=== PATIENT | male | born 1940 | race Caucasian/White ===

== ENCOUNTER 2020-01-10 12:43 | Outpatient (CLI) | payer MEDICARE, SELFPAY ==
[2020-01-10 13:44] LABS: Blood Urea Nitrogen 22 mg/dL (9-20); Calcium 8.6 mg/dL (8.4-10.2); Carbon Dioxide 30 mmol/L (22-30); Chloride 105 mmol/L (98-107); Estimated Glomerular Filt Rate 39; Glucose 87 mg/dL (75-110); Phosphorus 3.9 mg/dL (2.5-4.5); Potassium 4.3 mmol/L (3.4-5.0); Sodium 139 mmol/L (137-145)
[2020-01-10 14:11] LABS: Creatinine Urine 76.8 mg/dL; Total Protein Urine Random 9 mg/dL
== END 2020-01-10 12:44 | disposition home or self-care (01) ==
LOC: ANHLAB 12:51
PROVIDERS: Visit Provider Internal Medicine Nephrology
DX: N18.3 Chronic kidney disease, stage 3 (moderate) (principal)
CPT/HCPCS: 36415; 80069; 82570; 84156

== ENCOUNTER 2020-07-11 13:25 | Outpatient (CLI) | payer MEDICARE, SELFPAY ==
[2020-07-11 13:50] LABS: Hematocrit 35.3 % (42.0-52.0); Hemoglobin 11.7 g/dL (14.0-18.0); Mean Corpuscular HGB Conc 33.1 g/dl (32-36); Mean Corpuscular Volume 99.4 fl (80-100); Platelet Count Result 145 k/mm3 (150-375); Red Blood Count 3.55 M/mm3 (4.6-6.20); White Blood Count 5.8 K/mm3 (4.5-10.0)
[2020-07-11 14:08] LABS: Albumin Level 3.7 g/dL (3.5-5.1); Anion Gap 2 mmol/L (8-16); Blood Urea Nitrogen 18 mg/dL (9-20); Calcium 8.8 mg/dL (8.4-10.2); Carbon Dioxide 35 mmol/L (22-30); Chloride 105 mmol/L (98-107); Creatinine Urine 77.4 mg/dL; Estimated Glomerular Filt Rate 45; Glucose 98 mg/dL (75-110); Phosphorus 3.4 mg/dL (2.5-4.5); Potassium 4.2 mmol/L (3.4-5.0); Sodium 142 mmol/L (137-145); Total Protein Urine Random 9 mg/dL
[2020-07-11 14:19] LABS: Parathyroid Intact 90.1 pg/mL (7.5-53.5)
[2020-07-11 15:41] LABS: Vitamin D 25 Hydroxy 97.4 ng/mL
== END 2020-07-11 13:26 | disposition home or self-care (01) ==
PROVIDERS: Visit Provider Internal Medicine Nephrology
DX: N18.30 Chronic kidney disease, stage 3 unspecified (principal)
CPT/HCPCS: 36415; 80069; 82306; 82570; 83970; 84156; 85027

== ENCOUNTER → 2020-11-03 00:38 | Outpatient (CLI) | payer MEDICARE, SELFPAY ==
[2020-11-03 20:23] LABS: SARS-CoV-2 RNA PCR Negative
== END ==
PROVIDERS: Visit Provider Internal Medicine Gastroenterology
DX: Z01.812 Encounter for preprocedural laboratory examination (principal); Z20.822 Contact with and (suspected) exposure to COVID-19
CPT/HCPCS: C9803; U0003; U0005

== ENCOUNTER 2020-11-06 01:26 | Day surgery (SDC) | payer MEDICARE, SELFPAY ==
[2020-09-25 13:23] VITALS: BMI 25.2
--- NOTE | 2020-10-27 10:02 | PC.NURSE ---
Spoke with Tanika the daughter- states no changes in health history since last interview. Updated on when to stop warfarin, Covid swabbing date and hospital arrival times. No questions at this time.
[2020-11-06] MEDS: LACTATED RINGERS 1,000 ML 150 ML IV CONT (07:39)
[2020-11-06 07:50] LABS: INR 1.6; Prothrombin Time 19.4 Seconds (11.1-14.7)
[2020-11-06 07:51] LABS: Partial Thromboplastin Time 39.3 SECONDS (22.3-36.8)
[2020-11-06 07:56] VITALS: BP 139/65; PULSE 122; RESP 20; TEMP 36.7; O2SAT 99; BMI 25.7
--- NOTE | 2020-11-06 07:56 | WPDANESEPPF ---
Anes - Initial Pre Proc Eval Procedure: Operation Date: 11/06/20 08:30 Proposed Procedures p Screening Colonoscopy - Juan Manuel Pratt DO Date/Time: 11/06/20 07:56 Surgeon: Juan Manuel Pratt DO Pre Op Diagnosis: Neoplasm Screening Patient Data Age: 80 Gender: M Height: 5 ft 7 in Weight: 73 kg Allergies Allergy/AdvReac Type Severity Reaction Status Date / Time Penicillins Allergy Severe Hives Verified 11/06/20 07:16 Home Medications Medication Instructions Recorded Confirmed Type aspirin 81 mg tablet,delayed 81 mg PO DAILY 08/06/19 09/25/20 History release lisinopril 20 mg tablet 20 mg PO DAILY 08/06/19 09/25/20 History pantoprazole 40 mg tablet,delayed 40 mg PO BID #90 tablet 06/11/20 09/25/20 Rx release atorvastatin 80 mg PO QPM 09/25/20 09/25/20 History carvedilol 6.25 mg PO DAILY 09/25/20 09/25/20 History cholecalciferol (vitamin D3) 125 mcg PO DAILY 09/25/20 09/25/20 History [Vitamin D3] warfarin 2.5 mg PO QPM 09/25/20 09/25/20 History finasteride 5 mg tablet See Rx Instructions .ROUTE 10/17/20 10/27/20 Rx .COMPLEX #90 tablet Laboratory Tests 11/06/20 07:34 PT 19.4 Seconds H Seconds (11.1-14.7) INR 1.6 APTT 39.3 SECONDS H SECONDS (22.3-36.8) Patient hx anesthesia problems: none Family hx anesthesia problems: none PMFSH Past Medical History Medical History CHF (congestive heart failure) COPD (chronic obstructive pulmonary disease) CVA (cerebral vascular accident) Hyperlipidemia Hypertension Surgical History Surgical History History of vasectomy Family History Family History Father , Cause of unknown. No problems noted. Mother , Cancer. Unknown type. No problems noted. Social History Social History Smoking packs per day: 1 Smoking cigarettes per day: 20.0 Years smoked: 57 Smoking pack-years: 57.00 Smoking status: Former smoker Tobacco type: cigarettes Alcohol intake: current Substance use: never Substance use type: does not use Additional living arrangements comments: . 2 Children. Additional occupation/education comments: [employer] 4 years. [employer] 23 years. Spiritual care concerns: No Anes - Eval Final PreProcedure Day of Procedure 11/06/20 07:56 Patient weight: normal Heart: irregular rhythm Lungs: clear to auscultation Airway: Mallampati scale class III Neurological: alert and oriented Last oral intake: >/= 8 hours ASA classification: IV Emergent: no Anesthetic plan: proceed Anesthesia type and monitoring: general GIVS and standard monitoring Informed Consent: The patient's anesthetic plan and its attendant risks and benefits were discussed with the patient/family/POA. Questions were solicited and answers provided to the satisfaction of the patient/family/POA.
--- NOTE | 2020-11-06 08:28 | WPDGICN ---
GI Consult Note Consult date/time: 11/06/20 08:28 HPI: reason for visit is colonoscopy. This very pleasant gentleman seen in consultation at the request of the primary physician. Impression: Screening surveillance colonoscopy. The patient has a history adenomatous colon polyps. CKD. Cardiomyopathy/ CHF. Status post pacemaker/defibrillator placement. CVA. COPD. HLD. HTN. BPH. Recommendation: Colonoscopy. History: This very pleasant gentleman is being evaluated for screening and surveillance colonoscopy. He has history of adenomatous colon polyps. He does complain of occasional constipation. He is here for colonoscopy. Physical examination: General: very pleasant patient in no acute distress. HEENT: Head was normocephalic sclerae is clear mouth without masses neck was supple. Heart: Rate rhythm regular without S3 or S4. Lungs: Decreased breath sounds bilaterally. Abdomen: Soft with no guarding or rigidity. Bowel sounds were active. Neurologic: Cranial nerves 2 through 12 intact. No focal defects. No clonus. Musculoskeletal system: Revealed no joint tenderness or swelling no muscle atrophy. Extremities: Reveal no significant edema. Skin: Warm and dry with normal turgor. Mental status: intact. Patient is alert and oriented. Review of Systems Review of Systems: All systems reviewed & are unremarkable except as noted in HPI and below PMFSH Past Medical History Medical History (Updated 11/06/20 @ 08:27 by Juan Manuel Pratt DO) Adenomatous colon polyp CHF (congestive heart failure) COPD (chronic obstructive pulmonary disease) CVA (cerebral vascular accident) Hyperlipidemia Hypertension Surgical History Surgical History History of vasectomy Family History Family History Father , Cause of unknown. No problems noted. Mother , Cancer. Unknown type. No problems noted. Social History Social History Smoking packs per day: 1 Smoking cigarettes per day: 20.0 Years smoked: 57 Smoking pack-years: 57.00 Smoking status: Former smoker Tobacco type: cigarettes Alcohol intake: current Substance use: never Substance use type: does not use Additional living arrangements comments: . 2 Children. Additional occupation/education comments: [employer] 4 years. [employer] 23 years. Spiritual care concerns: No Meds Home Medications and Allergies Home Medications Medication Instructions Recorded Confirmed Type aspirin 81 mg tablet,delayed 81 mg PO DAILY 08/06/19 09/25/20 History release lisinopril 20 mg tablet 20 mg PO DAILY 08/06/19 09/25/20 History pantoprazole 40 mg tablet,delayed 40 mg PO BID #90 tablet 06/11/20 09/25/20 Rx release atorvastatin 80 mg PO QPM 09/25/20 09/25/20 History carvedilol 6.25 mg PO DAILY 09/25/20 09/25/20 History cholecalciferol (vitamin D3) 125 mcg PO DAILY 09/25/20 09/25/20 History [Vitamin D3] warfarin 2.5 mg PO QPM 09/25/20 09/25/20 History finasteride 5 mg tablet See Rx Instructions .ROUTE 10/17/20 10/27/20 Rx .COMPLEX #90 tablet Allergies Allergy/AdvReac Type Severity Reaction Status Date / Time Penicillins Allergy Severe Hives Verified 11/06/20 07:16 Vital Signs Vital Signs - 24 hr 11/06/20 07:56 Temperature 36.7 C Pulse Rate 122 H Respiratory Rate 20 Blood Pressure 139/65 Pulse Oximetry 99
[2020-11-06 09:06] VITALS: BP 80/48; PULSE 63; RESP 14; O2SAT 96
[2020-11-06 09:11] VITALS: BP 85/50; PULSE 71; RESP 14; O2SAT 96
[2020-11-06 09:16] VITALS: BP 101/62; PULSE 66; RESP 14; O2SAT 96
[2020-11-06 09:26] VITALS: BP 110/69; PULSE 60; RESP 14; O2SAT 100
== END 2020-11-06 09:45 | disposition home or self-care (01) ==
PROVIDERS: Visit Provider Internal Medicine Gastroenterology
PROC: 0DJD8ZZ Inspection of Lower Intestinal Tract, Via Natural or Artificial Opening Endoscopic (ICD-10-PCS; CPT 45378; principal; 2020-11-06 08:30)
DX: Z12.11 Encounter for screening for malignant neoplasm of colon (principal); K63.5 Polyp of colon; K64.8 Other hemorrhoids; I13.0 Hypertensive heart and chronic kidney disease with heart failure and stage 1 through stage 4 chronic kidney disease, or unspecified chronic kidney disease; I50.9 Heart failure, unspecified; N18.9 Chronic kidney disease, unspecified; E78.5 Hyperlipidemia, unspecified; I42.9 Cardiomyopathy, unspecified; J44.9 Chronic obstructive pulmonary disease, unspecified; N40.0 Benign prostatic hyperplasia without lower urinary tract symptoms; Z95.810 Presence of automatic (implantable) cardiac defibrillator; Z87.891 Personal history of nicotine dependence; Z86.73 Personal history of transient ischemic attack (TIA), and cerebral infarction without residual deficits
CPT/HCPCS: 45380; 36415; 85610; 85730; 88305; C9803; J2704; J7120; U0003; U0005

== ENCOUNTER 2021-01-14 14:07 | Outpatient (CLI) | payer MEDICARE, SELFPAY ==
[2021-01-14 14:42] LABS: Hematocrit 35.8 % (42.0-52.0); Hemoglobin 11.5 g/dL (14.0-18.0); Mean Corpuscular HGB Conc 32.1 g/dl (32-36); Mean Corpuscular Hemoglobin 32.9 pg (26-34); Mean Corpuscular Volume 102.3 fl (80-100); Mean Platelet Volume 9.5 fl (7.4-10.4); Platelet Count Result 150 k/mm3 (150-375); Red Cell Distribution Width 13.1 % (11.5-14.5); White Blood Count 5.3 K/mm3 (4.5-10.0)
[2021-01-14 14:53] LABS: Albumin Level 3.9 g/dL (3.5-5.1); Anion Gap 7 mmol/L (8-16); Blood Urea Nitrogen 23 mg/dL (9-20); Calcium 9.1 mg/dL (8.4-10.2); Carbon Dioxide 30 mmol/L (22-30); Chloride 108 mmol/L (98-107); Estimated Glomerular Filt Rate 39; Glucose 125 mg/dL (75-110); Phosphorus 3.3 mg/dL (2.5-4.5); Potassium 4.1 mmol/L (3.4-5.0); Sodium 145 mmol/L (137-145)
[2021-01-14 14:55] LABS: Creatinine Urine 127.1 mg/dL; Total Protein Urine Random 9 mg/dL; Ur Ttl Prot Creatinine Ratio 0.07 mg/mg (0-0.20)
[2021-01-14 15:05] LABS: Parathyroid Intact 89.3 pg/mL (7.5-53.5)
[2021-01-14 16:23] LABS: Vitamin D 25 Hydroxy 95.6 ng/mL
== END 2021-01-14 14:08 | disposition home or self-care (01) ==
PROVIDERS: PCP Family Medicine; Visit Provider Internal Medicine Nephrology
DX: N18.32 Chronic kidney disease, stage 3b (principal); E55.9 Vitamin D deficiency, unspecified
CPT/HCPCS: 36415; 80069; 82306; 82570; 83970; 84156; 85027

== ENCOUNTER 2021-03-03 12:52 | Outpatient (CLI) | payer MEDICARE, SELFPAY ==
[2021-03-03 13:58] LABS: Albumin Level 3.9 g/dL (3.5-5.1); Anion Gap 7 mmol/L (8-16); Blood Urea Nitrogen 24 mg/dL (9-20); Calcium 8.5 mg/dL (8.4-10.2); Carbon Dioxide 31 mmol/L (22-30); Chloride 103 mmol/L (98-107); Estimated Glomerular Filt Rate 31; Glucose 120 mg/dL (65-110); Potassium 3.8 mmol/L (3.4-5.0); Sodium 141 mmol/L (137-145)
== END 2021-03-03 12:53 | disposition home or self-care (01) ==
LOC: ANHLAB 12:55
PROVIDERS: PCP Family Medicine; Visit Provider Family Medicine
DX: N18.32 Chronic kidney disease, stage 3b (principal)
CPT/HCPCS: 36415; 80069

== ENCOUNTER 2021-04-14 10:19 | Inpatient (IN) | payer MEDICARE, SELFPAY ==
[2021-04-14] VITALS (10 sets, daily range): BP systolic 100–145; BP diastolic 58–75; PULSE 60–74; RESP 18–20; TEMP 36.1–36.9; O2SAT 90–98; BMI 23.6
--- NOTE | ~2021-04-14 | XR_ITS ---
EXAMINATION: XR chest 1V portable INDICATION: Cough and shortness of breath, COVID 19 TECHNIQUE: Portable AP chest at 1130 hours COMPARISON: 03/30/2019 FINDINGS: There are airspace opacities of the lung bases. No pleural effusion or pneumothorax is iden tified. The heart size is upper limits of normal for technique. There has been interval insertion of a dual lead pacemaker in the left chest wall which ends with its leads in expected positions. IMPRESSION: 1. Bibasilar airspace opacities, likely COVID 19 pneumonia given clinical history. Reviewed, dictated and finalized at location A. IMPRESSION: 1. Bibasilar airspace opacities, likely COVID 19 pneumonia given clinical histo ry.
--- NOTE | 2021-04-14 11:00 | ED.SOB ---
HPI - SOB/Dyspnea General Chief Complaint: Upper Respiratory Infection Stated Complaint: COUGH SOB Source: patient and RN notes reviewed Mode of arrival: ambulatory Limitations: no limitations History of Present Illness MD elicited complaint: shortness of breath and cough Pertinent past history: COPD and congestive heart failure Onset (ago): week(s) (1) Context: recent illness and other (Positive for COVID on 04/07) Timing: constant Severity: moderate Exacerbating factors: exertion and coughing Relieving factors: nothing Known history of: COPD and congestive heart failure Associated symptoms: cough Treatment prior to arrival: none Related Data Home Medications Medication Instructions Recorded Confirmed aspirin 81 mg tablet,delayed 81 mg PO DAILY 08/06/19 04/14/21 release lisinopril 20 mg tablet 20 mg PO DAILY 08/06/19 04/14/21 atorvastatin 80 mg PO QPM 09/25/20 04/14/21 carvedilol 12.5 mg PO DAILY 09/25/20 04/14/21 cholecalciferol (vitamin D3) 125 mcg PO DAILY 09/25/20 04/14/21 [Vitamin D3] warfarin See Rx Instructions .ROUTE .COMPLEX 09/25/20 04/14/21 Allergies Allergy/AdvReac Type Severity Reaction Status Date / Time Penicillins Allergy Severe Hives Verified 11/06/20 07:16 [facility] Past Medical History Medical History (Updated 04/14/21 @ 15:45 by BRETT Hester) Adenomatous colon polyp Azotemia (09/06/16) CHF (congestive heart failure) Chronic kidney disease COPD (chronic obstructive pulmonary disease) CVA (cerebral vascular accident) GI bleed (08/04/15) Hyperlipidemia Hypertension Lump of skin (11/29/16) Unspecified viral infection characterized by skin and mucous membrane lesions (03/01/17) Unspecified visual disturbance (10/07/14) Surgical History Surgical History History of vasectomy Family History Family History Father , Cause of unknown. No problems noted. Mother , Cancer. Unknown type. No problems noted. Other Unknown family medical history Social History Social History Smoking packs per day: 1 Smoking cigarettes per day: 20.0 Years smoked: 57 Smoking pack-years: 57.00 Smoking status: Never smoker Tobacco type: cigarettes Second hand tobacco smoke exposure: No Alcohol intake: current Substance use: never Substance use type: does not use Additional living arrangements comments: . 2 Children. Additional occupation/education comments: [employer] 4 years. [employer] 23 years. Spiritual care concerns: No Exam Const: General: alert, anxious and ill appearing acutely Nutritional Appearance: well nourished and thin Orientation/consciousness: patient oriented x3 HENMT: Head: normal to inspection Eyes: Conjunctivae: conjunctivae normal Pupils: Equal, round and reactive pupils present Neck: Neck: normal visual inspection Chest: Chest palpation & inspection: normal inspection of the chest Resp: Effort & Inspection: normal respiratory effort Auscultation: rhonchi left lower and right lower Cardio: Rate: regular rate Rhythm: regular rhythm GI: GI Palp: Yes Soft to palpation and No Tenderness to palpation present (GI) Auscultation: normal bowel sounds Back/Spine/Pelvis: Cervical Spine: cervical ROM normal Thoracic/Lumbar Spine: thoraco-lumbar ROM normal Skin: General skin exam: normal color Rashes: no rashes Neuro: General: patient oriented x3, moves all extremities and no focal motor deficits Speech: normal speech Gait exam (Neuro): Normal gait present Extrem: General: normal to inspection and no pedal edema Psych: Mental Status: mental status grossly normal Affect: normal affect Attitude: cooperative Thought content: Yes Normal thought content present Course Vital Signs Vital signs: Vital Signs Te
[2021-04-14 11:21] LABS: Basophils Absolute Auto 0.02 K/mm3 (0.00-0.10); Basophils Percent Auto 0.3 % (0.0-1.0); Eosinophils Absolute Auto 0.09 K/mm3 (0.02-0.50); Eosinophils Percent Auto 1.3 % (1.0-6.0); Hematocrit 33.9 % (37.0-46.0); Hemoglobin 11.4 g/dL (12.4-15.3); Immature Granulocyte Absolute 0.05 K/mm3 (0.00-0.00); Immature Granulocyte Percent A 0.7 % (0.0-0.0); Lymphocytes Absolute Auto 1.17 K/mm3 (1.10-4.50); Lymphocytes Percent Auto 16.8 % (18.0-42.0); Mean Corpuscular HGB Conc 33.6 g/dL (32.0-36.0); Mean Corpuscular Hemoglobin 31.6 pg (27.0-31.0); Mean Corpuscular Volume 93.9 fL (78.0-102.0); Mean Platelet Volume 9.2 fl (8.7-11.0); Monocytes Absolute Auto 0.74 K/mm3 (0.10-0.90); Monocytes Percent Auto 10.6 % (2.0-11.0); Neutrophils Absolute Auto 4.9 K/mm3 (1.7-7.2); Neutrophils Percent Auto 70.3 % (50.0-70.0); Platelet Count Result 240 K/mm3 (150-420); Red Blood Count 3.61 M/mm3 (4.70-6.10); Red Cell Distribution Width 12.3 % (11.6-14.4)
[2021-04-14 11:36] LABS: D Dimer 0.26 mg/L (0.19-0.50)
[2021-04-14 11:44] LABS: Lactic Acid Reflex 0.9 mmol/L (0.4-2.0)
[2021-04-14 11:50] LABS: Alanine Aminotransferase 27 U/L (16-63); Albumin Level 2.9 g/dL (3.4-5.0); Alkaline Phosphatase 51 U/L (46-116); Anion Gap 10 mmol/L (8-16); Aspartate Amino Transferase 22 U/L (15-37); Bilirubin,Total 1.1 mg/dL (0.00-1.00); Blood Urea Nitrogen 16 mg/dL (7-18); Calcium 8.3 mg/dL (8.5-10.1); Carbon Dioxide 27 mmol/L (21-32); Chloride 98 mmol/L (98-108); Estimated Glomerular Filt Rate 49; Glucose 104 mg/dL (70-99); Magnesium 1.4 mg/dL (1.8-2.4); NT Pro B Type Natriuretic Pept 7918 pg/mL (0-450); Osmolality Calculated 281 mOsm/kg (285-295); Potassium 3.3 mmol/L (3.5-5.1); Sodium 135 mmol/L (136-145); Total Protein 7.3 g/dL (6.4-8.2); Troponin I 51.2 ng/L (0.00-60.4)
[2021-04-14 11:51] LABS: CRP 12.5 mg/dL (0.0-0.9)
[2021-04-14 12:17] LABS: Ferritin 984 ng/mL (26-388)
--- NOTE | 2021-04-14 12:58 | PHAR ---
04/14/21: Noe [facility] confirmed pt.'s protnix dose 40mg bid, finasteride 5mg daily, and warfarin 2.5mg tablet /Tue&Wed and one whole tab other days of week. Spoke w/CONTRACTING SUPPORT SPECIALIST and he said was reported to him by ER doc INR 1.6. He wants to continue on just a whole tab 2.5mg daily at this time, sotero re-assess INR in AM. tls
--- NOTE | 2021-04-14 14:26 | ADMGEN ---
This patient, Mal Scott, was admitted to 2nd Floor Room 210-1. Patient/family oriented to hospital policies and general routines including ID bracelet, bed and alarms, visiting hours, pain management, procedures, bathroom and other care routines, personal items, smoking policy, room service/diet, and visiting hours. This patient assisted abed, rails up, call light in reach O2@2lpnc in place O2 Sat 97%.No pain at this time. Information on how to activate the Rapid Response Team has been discussed. Patient/Family are encouraged to report perceived risks to care and to ask questions if they do not understand what they are told or what they should do.
--- NOTE | 2021-04-14 15:23 | PM.IMHP ---
H&P: HPI History of Present Illness Date/Time: 04/14/21 15:23 Mal Scott is a 80-year-old male admitted to the hospital for shortness of breath related to COVID exposure. Patient states symptoms started on April 03 and was found to be positive on the . He came to the ER for having shortness breath with activity. Loss of appetite and states he has not eaten for the past 5 days. He is able to tolerate water provided drinks with a straw. Patient states he has not had a bowel movement in a few days. He states his urine is an marco color. Patient denies fever and chills chest pain abdominal pain body or muscle aches and no joint pain. He admits not only to the shortness of breath but also having been lightheaded and dizzy at times and decreased energy. Patient has a PMHx to include hypertension hyperlipidemia CVA COPD CHF. <BRETT Hester - Last Filed: 04/14/21 15:56> Chief Complaint: SOB <BRETT Hester - Last Filed: 04/14/21 15:56> Review of Systems Review of Systems: All systems reviewed & are unremarkable except as noted in HPI and below <BRETT Hester - Last Filed: 04/14/21 15:56> [facility] Past Medical History Medical History: Medical History (Updated 04/14/21 @ 15:45 by BRETT Hester) Adenomatous colon polyp Azotemia (09/06/16) CHF (congestive heart failure) Chronic kidney disease COPD (chronic obstructive pulmonary disease) CVA (cerebral vascular accident) GI bleed (08/04/15) Hyperlipidemia Hypertension Lump of skin (11/29/16) Unspecified viral infection characterized by skin and mucous membrane lesions (03/01/17) Unspecified visual disturbance (10/07/14) <BRETT Hester - Last Filed: 04/14/21 15:56> Surgical History Surgical History: Surgical History History of vasectomy <BRETT Hester - Last Filed: 04/14/21 15:56> Family History Family History: Family History Father , Cause of unknown. No problems noted. Mother , Cancer. Unknown type. No problems noted. Other Unknown family medical history <BRETT Hester - Last Filed: 04/14/21 15:56> Social History Social History: Social History Smoking packs per day: 1 Smoking cigarettes per day: 20.0 Years smoked: 57 Smoking pack-years: 57.00 Smoking status: Never smoker Tobacco type: cigarettes Second hand tobacco smoke exposure: No Alcohol intake: current Substance use: never Substance use type: does not use Additional living arrangements comments: . 2 Children. Additional occupation/education comments: [employer] 4 years. [employer] 23 years. Spiritual care concerns: No <BRETT Hester - Last Filed: 04/14/21 15:56> Meds Home Medications and Allergies Home medications: Home Medications Medication Instructions Recorded Confirmed Type aspirin 81 mg tablet,delayed 81 mg PO DAILY 08/06/19 04/14/21 History release lisinopril 20 mg tablet 20 mg PO DAILY 08/06/19 04/14/21 History atorvastatin 80 mg PO QPM 09/25/20 04/14/21 History carvedilol 12.5 mg PO DAILY 09/25/20 04/14/21 History cholecalciferol (vitamin D3) 125 mcg PO DAILY 09/25/20 04/14/21 History [Vitamin D3] warfarin See Rx Instructions .ROUTE .COMPLEX 09/25/20 04/14/21 History finasteride 5 mg tablet See Rx Instructions .ROUTE 10/17/20 04/14/21 Rx .COMPLEX #90 tablet pantoprazole 40 mg tablet,delayed See Rx Instructions .ROUTE 12/11/20 04/14/21 Rx release .COMPLEX #90 tablet <BRETT Hester - Last Filed: 04/14/21 15:56> Allergies/Adverse reactions: Allergies Allergy/AdvReac Type Severity Reaction Status Date / Time Penicillins Allergy Severe Hives Verified 11/06/20 07:16 <BRETT Hester
[2021-04-14] MEDS: REMDESIVIR 200 MG/NS 250 ML 200 MG/250 ML BAG 250 MG IVPB (15:54)
[2021-04-14] MEDS: WARFARIN (*PBKC) 2.5 MG TABLET PO (17:05)
[2021-04-14] MEDS: ATORVASTATIN 40 MG TABLET 80 MG PO (17:05)
[2021-04-14] MEDS: MAGNESIUM SULF 4 GM/WATER100ML 4 GM/100 ML BAG IVPB (17:09)
[2021-04-14] MEDS: POTASSIUM CHLORIDE 20 MEQ PACKET (FOR LIQUID) 40 MEQ PO (17:09)
[2021-04-14] MEDS: PANTOPRAZOLE 40 MG TABLET BY MOUTH (18:31)
[2021-04-15] VITALS (8 sets, daily range): BP systolic 106–146; BP diastolic 56–74; PULSE 60–64; RESP 18–20; TEMP 36–36.6; O2SAT 93–96
[2021-04-15 05:19] LABS: Hematocrit 32.6 % (37.0-46.0); Hemoglobin 11.1 g/dL (12.4-15.3); Mean Corpuscular Hemoglobin 31.7 pg (27.0-31.0); Mean Corpuscular Volume 93.1 fL (78.0-102.0); Mean Platelet Volume 9.3 fl (8.7-11.0); Platelet Count Result 243 K/mm3 (150-420); Red Cell Distribution Width 12.3 % (11.6-14.4); White Blood Count 5.3 K/mm3 (4.8-10.8)
[2021-04-15 05:34] LABS: Alanine Aminotransferase 27 U/L (16-63); Albumin Level 2.5 g/dL (3.4-5.0); Alkaline Phosphatase 49 U/L (46-116); Anion Gap 8 mmol/L (8-16); Aspartate Amino Transferase 24 U/L (15-37); Bilirubin,Total 0.7 mg/dL (0.00-1.00); Blood Urea Nitrogen 23 mg/dL (7-18); Calcium 7.8 mg/dL (8.5-10.1); Carbon Dioxide 27 mmol/L (21-32); Chloride 100 mmol/L (98-108); Estimated CRCL calculation 38 ml/min; Estimated Glomerular Filt Rate 50; Glucose 175 mg/dL (70-99); Magnesium 2.4 mg/dL (1.8-2.4); Osmolality Calculated 287 mOsm/kg (285-295); Potassium 3.9 mmol/L (3.5-5.1); Sodium 135 mmol/L (136-145); Total Protein 6.7 g/dL (6.4-8.2)
[2021-04-15] MEDS: PHYTONADIONE ADULT INJ 10 MG in DEXTROSE 5% IN WATER 50 ML 100 MG IVPB (07:55)
[2021-04-15] MEDS: CHOLECALCIFEROL 1,000 UNITS TABLET 5000 UNITS PO (07:56)
[2021-04-15] MEDS: carvediloL 12.5 MG TABLET PO (07:57)
[2021-04-15] MEDS: PANTOPRAZOLE 40 MG TABLET BY MOUTH ×2 (07:57→16:52)
[2021-04-15] MEDS: FINASTERIDE 5 MG TABLET BY MOUTH (07:58)
[2021-04-15] MEDS: lisinopriL 20 MG TABLET PO (07:58)
[2021-04-15] MEDS: DEXAMETHASONE 2 MG TABLET 6 MG PO (07:58)
[2021-04-15] MEDS: ASPIRIN 81 MG ENTERIC TABLET PO (07:58)
--- NOTE | 2021-04-15 09:03 | PC.NURSE ---
Mal up to bathroom O2sat down to 89-90%. Back abed O2 resaturation with coaching of pursed lips. O2 @1lpnc, O2Sat increased tob 94%. Huang. well Call light continues at reach of patient.No complaints of , No distress noted. Will continue to monitor.
[2021-04-15 09:57] LABS: Prothrombin Time 49.8 Seconds (9.50-12.10)
--- NOTE | 2021-04-15 10:00 | PM.IMPN ---
Progress Note: A&P Assessment and Plan (1) Pneumonia due to COVID-19 virus: Code(s): U07.1 - COVID-19; J12.82 - Pneumonia due to coronavirus disease 2019 <BRETT Hester - Last Filed: 04/15/21 13:12> Status: Acute <BRETT Hester - Last Filed: 04/15/21 13:12> Assessment and Plan: Started Remdesivir, Decadron, Supplemental Oxygen currently 2L/min NC, surveillance monitor with SpO2 monitoring, will monitor ALT, Creatinine, PT/INR, IVF, Zofran 04/15/2021 Continue with above regimen, oxygen has been weaned to 1 liter/minute, SpO2 95% or better, ALT 27, eGFR 50, PT/INR 90/8 was given vitamin K INR recheck and found to be 5, creatinine 1.37 <TORRES HesterC - Last Filed: 04/15/21 13:12> (2) Hypokalemia: Code(s): E87.6 - Hypokalemia <TORRES HesterC - Last Filed: 04/15/21 13:12> Status: Acute <BRETT Hester - Last Filed: 04/15/21 13:12> Assessment and Plan: Potassium 3.3 supplemented with 40 mEq PO, will monitor and supplement as needed, Pt states he has not been eating for the past 5 days. 04/15/2021 potassium 3.9, continue to monitor <Bernabe Maddox APN-C - Last Filed: 04/15/21 13:12> (3) Hypomagnesemia: Code(s): E83.42 - Hypomagnesemia <Bernabe Maddox APN-C - Last Filed: 04/15/21 13:12> Status: Acute <BRETT Hester - Last Filed: 04/15/21 13:12> Assessment and Plan: Magnesium 1.4 supplemented with 4gm IVPB, will monitor and supplement as needed, Pt states he has not been eating for the past 5 days. 04/15/2021 magnesium 2.4, continue to monitor <Bernabe Maddox APN-C - Last Filed: 04/15/21 13:12> (4) CHF (congestive heart failure): Qualifiers: Heart failure chronicity: acute on chronic Heart failure type: systolic Qualified Code(s): I50.23 - Acute on chronic systolic (congestive) heart failure <Bernabe LinkShaila Maddox APN-C - Last Filed: 04/15/21 13:12> Code(s): I50.9 - Heart failure, unspecified <Bernabe NikolayShaila Maddox APN-C - Last Filed: 04/15/21 13:12> Status: Acute <Bernabe LinkMACARIO SantanaN-C - Last Filed: 04/15/21 13:12> Assessment and Plan: BNP 7918, No IVFs, tolerating water provided he uses straw, no edema, lungs diminished without rales but with rhonchi in posterior bases, continue Coreg 04/15/2021 will obtain BNP tomorrow, lung sounds without rales but little diminished, <Bernabe NikolayShaila Maddox APN-C - Last Filed: 04/15/21 13:12> (5) Chronic kidney disease: Qualifiers: Chronic kidney disease stage: unspecified stage Qualified Code(s): N18.9 - Chronic kidney disease, unspecified <Bernabe NikolayShaila Maddox APN-C - Last Filed: 04/15/21 13:12> Code(s): N18.9 - Chronic kidney disease, unspecified <Bernabe NikolayShaila Maddox APN-C - Last Filed: 04/15/21 13:12> Status: Acute <Bernabe NikolayShaila Maddox APN-C - Last Filed: 04/15/21 13:12> Assessment and Plan: Cr 1.4 and appears to be at Pt's baseline, avoiding nephrotoxic medications as best possible, renal dose medications when needed, monitoring renal functions with Remdesivir 04/15/2021 creatinine stable now 1.37, continue with above <Bernabe NikolayShaila Maddox APN-C - Last Filed: 04/15/21 13:12> (6) COPD (chronic obstructive pulmonary disease): Qualifiers: COPD type: unspecified COPD Qualified Code(s): J44.9 - Chronic obstructive pulmonary disease, unspecified <Bernabe NikolayShaila Maddox APN-C - Last Filed: 04/15/21 13:12> Code(s): J44.9 - Chronic obstructive pulmonary disease, unspecified <BRETT Hester - Last Filed: 04/15/21 13:12> Status: Acute <BRETT Hester - Last Filed: 04/15/21 13:12> Assessment and Plan: Chronic and Stable, Albuteroll ordered PRN, Pt has supplemental O2 for his COVID, will monitor and make adjustments as needed. <BRETT Hester - Last Filed: 04/15/21 13:12> (7) Hypertension: Qualifiers:
[2021-04-15] MEDS: REMDESIVIR 100 MG/NS 250 ML 100 MG/250 ML BAG 250 MG IVPB (15:22)
[2021-04-15] MEDS: ATORVASTATIN 40 MG TABLET 80 MG PO (16:52)
[2021-04-16] VITALS (11 sets, daily range): BP systolic 113–155; BP diastolic 65–82; PULSE 61–80; RESP 20–22; TEMP 36–36.7; O2SAT 90–96
[2021-04-16 05:36] LABS: Hematocrit 32.8 % (37.0-46.0); Hemoglobin 11.2 g/dL (12.4-15.3); Mean Corpuscular HGB Conc 34.1 g/dL (32.0-36.0); Mean Corpuscular Hemoglobin 32.1 pg (27.0-31.0); Mean Platelet Volume 9.3 fl (8.7-11.0); Platelet Count Result 341 K/mm3 (150-420); Red Blood Count 3.49 M/mm3 (4.70-6.10); Red Cell Distribution Width 12.5 % (11.6-14.4); White Blood Count 14.7 K/mm3 (4.8-10.8)
[2021-04-16 05:48] LABS: INR 1.5; Prothrombin Time 15.6 Seconds (9.50-12.10)
[2021-04-16 06:00] LABS: Alanine Aminotransferase 28 U/L (16-63); Albumin Level 2.4 g/dL (3.4-5.0); Alkaline Phosphatase 48 U/L (46-116); Anion Gap 7 mmol/L (8-16); Aspartate Amino Transferase 18 U/L (15-37); Bilirubin,Total 0.6 mg/dL (0.00-1.00); Blood Urea Nitrogen 31 mg/dL (7-18); Calcium 8.2 mg/dL (8.5-10.1); Carbon Dioxide 26 mmol/L (21-32); Chloride 102 mmol/L (98-108); Estimated CRCL calculation 36 ml/min; Estimated Glomerular Filt Rate 47; Glucose 156 mg/dL (70-99); NT Pro B Type Natriuretic Pept 5598 pg/mL (0-450); Osmolality Calculated 289 mOsm/kg (285-295); Potassium 4.2 mmol/L (3.5-5.1); Sodium 135 mmol/L (136-145); Total Protein 6.5 g/dL (6.4-8.2)
[2021-04-16] MEDS: CHOLECALCIFEROL 1,000 UNITS TABLET 5000 UNITS PO (08:15)
[2021-04-16] MEDS: carvediloL 12.5 MG TABLET PO (08:16)
[2021-04-16] MEDS: DEXAMETHASONE 2 MG TABLET 6 MG PO (08:17)
[2021-04-16] MEDS: PANTOPRAZOLE 40 MG TABLET BY MOUTH ×2 (08:20→16:26)
[2021-04-16] MEDS: lisinopriL 20 MG TABLET PO (08:20)
[2021-04-16] MEDS: FINASTERIDE 5 MG TABLET BY MOUTH (08:20)
--- NOTE | 2021-04-16 12:15 | PM.IMPN ---
Progress Note: A&P Assessment and Plan (1) Pneumonia due to COVID-19 virus: Code(s): U07.1 - COVID-19; J12.82 - Pneumonia due to coronavirus disease 2019 Status: Acute Assessment and Plan: Started Remdesivir, Decadron, Supplemental Oxygen currently 2L/min NC, monitor and storage bin tender with SpO2 monitoring, will monitor ALT, Creatinine, PT/INR, IVF, Zofran 04/15/2021 Continue with above regimen, oxygen has been weaned to 1 liter/minute, SpO2 95% or better, ALT 27, eGFR 50, PT/INR 90/8 was given vitamin K INR recheck and found to be 5, creatinine 1.37 04/16/2021 WBC 14.7 likely d/t steroids, will continue to monitor, continue with above, Pt has SOB early this AM, NC remains at 1L/min with SpO2 at 91% (2) Hypokalemia: Code(s): E87.6 - Hypokalemia Status: Acute Assessment and Plan: Potassium 3.3 supplemented with 40 mEq PO, will monitor and supplement as needed, Pt states he has not been eating for the past 5 days. 04/15/2021 potassium 3.9, continue to monitor 04/16/2021 potassium 4.2 (3) Hypomagnesemia: Code(s): E83.42 - Hypomagnesemia Status: Acute Assessment and Plan: Magnesium 1.4 supplemented with 4gm IVPB, will monitor and supplement as needed, Pt states he has not been eating for the past 5 days. 04/15/2021 magnesium 2.4, continue to monitor 04/16/2021 will monitor as indicated (4) CHF (congestive heart failure): Qualifiers: Heart failure chronicity: acute on chronic Heart failure type: systolic Qualified Code(s): I50.23 - Acute on chronic systolic (congestive) heart failure Code(s): I50.9 - Heart failure, unspecified Status: Acute Assessment and Plan: BNP 7918, No IVFs, tolerating water provided he uses straw, no edema, lungs diminished without rales but with rhonchi in posterior bases, continue Coreg 04/15/2021 will obtain BNP tomorrow, lung sounds without rales but little diminished 04/16/2021 Improved BNP now 5598, Lung sounds diminished but clear (5) Chronic kidney disease: Qualifiers: Chronic kidney disease stage: unspecified stage Qualified Code(s): N18.9 - Chronic kidney disease, unspecified Code(s): N18.9 - Chronic kidney disease, unspecified Status: Acute Assessment and Plan: Cr 1.4 and appears to be at Pt's baseline, avoiding nephrotoxic medications as best possible, renal dose medications when needed, monitoring renal functions with Remdesivir 04/15/2021 creatinine stable now 1.37, continue with above 04/16/2021 Cr 1.45, eGFR 36 (6) COPD (chronic obstructive pulmonary disease): Qualifiers: COPD type: unspecified COPD Qualified Code(s): J44.9 - Chronic obstructive pulmonary disease, unspecified Code(s): J44.9 - Chronic obstructive pulmonary disease, unspecified Status: Acute Assessment and Plan: Chronic and Stable, Albuteroll ordered PRN, Pt has supplemental O2 for his COVID, will monitor and make adjustments as needed. (7) Hypertension: Qualifiers: Hypertension type: unspecified Qualified Code(s): I10 - Essential (primary) hypertension Code(s): I10 - Essential (primary) hypertension Status: Acute Assessment and Plan: Currently BP 143/64 with HR at 62, has pacemaker, BP stable, continue home medications, continue Coreg and Lisinopril 04/15/2021 BP stable 112-146/56-68 HR paced 04/16/2021 VSS no changes at this time (8) Hyperlipidemia: Qualifiers: Hyperlipidemia type: unspecified Qualified Code(s): E78.5 - Hyperlipidemia, unspecified Code(s): E78.5 - Hyperlipidemia, unspecified Status: Acute Assessment and Plan: Continue Atorvastatin Subjective Date/time seen: 04/16/21 12:15 Pt states he did have some SOB early this AM. At this time he is not c/o SOB. He does have a cough and states it is productive. He does not have any other complaints or concerns at this time. Continues to use 1L NC. Pt has updated his daughter and he has gi
[2021-04-16] MEDS: REMDESIVIR 100 MG/NS 250 ML 100 MG/250 ML BAG 250 MG IVPB (15:11)
[2021-04-16] MEDS: ATORVASTATIN 40 MG TABLET 80 MG PO (17:14)
[2021-04-17] VITALS (11 sets, daily range): BP systolic 132–143; BP diastolic 66–76; PULSE 60–81; RESP 18–20; TEMP 36.3–36.8; O2SAT 87–98
[2021-04-17 05:28] LABS: Hematocrit 33.7 % (37.0-46.0); Hemoglobin 11.3 g/dL (12.4-15.3); Mean Corpuscular HGB Conc 33.5 g/dL (32.0-36.0); Mean Corpuscular Hemoglobin 31.7 pg (27.0-31.0); Mean Corpuscular Volume 94.4 fL (78.0-102.0); Mean Platelet Volume 9.1 fl (8.7-11.0); Platelet Count Result 359 K/mm3 (150-420); Red Blood Count 3.57 M/mm3 (4.70-6.10); Red Cell Distribution Width 12.7 % (11.6-14.4); White Blood Count 11.7 K/mm3 (4.8-10.8)
[2021-04-17 05:42] LABS: Anion Gap 7 mmol/L (8-16); Blood Urea Nitrogen 33 mg/dL (7-18); Calcium 8.1 mg/dL (8.5-10.1); Carbon Dioxide 27 mmol/L (21-32); Chloride 103 mmol/L (98-108); Estimated CRCL calculation 37 ml/min; Estimated Glomerular Filt Rate 49; Glucose 120 mg/dL (70-99); Osmolality Calculated 292 mOsm/kg (285-295); Sodium 137 mmol/L (136-145)
[2021-04-17 05:45] LABS: INR 1.6; Prothrombin Time 16.8 Seconds (9.50-12.10)
[2021-04-17] MEDS: CHOLECALCIFEROL 1,000 UNITS TABLET 5000 UNITS PO (08:40)
[2021-04-17] MEDS: DEXAMETHASONE 2 MG TABLET 6 MG PO (08:40)
[2021-04-17] MEDS: PANTOPRAZOLE 40 MG TABLET BY MOUTH (08:41)
[2021-04-17] MEDS: lisinopriL 20 MG TABLET PO (08:41)
[2021-04-17] MEDS: carvediloL 12.5 MG TABLET PO (08:41)
[2021-04-17] MEDS: FINASTERIDE 5 MG TABLET BY MOUTH (08:41)
--- NOTE | 2021-04-17 11:48 | HOMEO2EVAL ---
Evaluation was performed at [facility] Home Oxygen Evaluation RC: Home Oxygen (O2) Evaluation Start: 04/17/21 09:21 Freq: ONCE Status: Active Protocol: RPE Activity Type Activity Date Activity User E-Sign Co-Sign Detail Recorded Client Recorded Date Recorded By Document 04/17/21 11:05 SJB [id number] 04/17/21 11:48 SJB Document 04/17/21 11:07 SJB [id number] 04/17/21 11:48 SJB Document 04/17/21 11:09 SJB [id number] 04/17/21 11:48 SJB Document 04/17/21 11:11 SJB [id number] 04/17/21 11:48 SJB Document 04/17/21 11:13 SJB [id number] 04/17/21 11:48 SJB 04/17/21 04/17/21 04/17/21 11:05 11:07 11:09 Home O2 Evaluation Test Phase Resting Resting Exercise Oxygen Delivery Room Air Nasal Cannula Nasal Cannula Oxygen Flow Rate (L/min) 1 1 Pulse Oximetry (90-100 %) 88 L 91 87 L Pulse Rate (60-100 beats/min) 73 72 80 Activity Tolerance Fair Fair Rating of Perceived Dyspnea (PD) +1 Mild, +1 Mild, +2 Mild, Some Noticeable to Noticeable to Difficulty, the Participant the Participant Noticeable to but Not to an but Not to an the Observer Observer Observer Rate of Perceived Exertion (PE) 9 Very light 11 Fairly light 12 Ambulation Distance (feet) 0 130 Home Oxygen Evaluation Comments WILL START ON 1 WILL BEGIN WALK WILL INCREASE LPM OXYGEN. ON 1 PLM. TO 2 LPM Treatment Charges O2 Evaluation - Inpatient 04/17/21 04/17/21 11:11 11:13 Home O2 Evaluation Test Phase Exercise Exercise Oxygen Delivery Nasal Cannula Nasal Cannula Oxygen Flow Rate (L/min) 2 3 Pulse Oximetry (90-100 %) 87 L 90 Pulse Rate (60-100 beats/min) 81 81 Activity Tolerance Fair Fair Rating of Perceived Dyspnea (PD) +2 Mild, Some +2 Mild, Some Difficulty, Difficulty, Noticeable to Noticeable to the Observer the Observer Rate of Perceived Exertion (PE) 12 12 Ambulation Distance (feet) 138 115 Home Oxygen Evaluation Comments PT WALKED A TOTAL OF 383 FT . MAINTAINED AN SP02 OF 90% ON 3 LPM, HR STAYED IN LOW 80S. PLB ENCOURAGED. Treatment Charges
--- NOTE | 2021-04-17 14:07 | PM.DS ---
DS: Admitting Diagnosis Admitting Diagnosis COVID Pneumonia DS: Discharge Diagnosis Discharge Diagnosis (1) Pneumonia due to COVID-19 virus: Code(s): U07.1 - COVID-19; J12.82 - Pneumonia due to coronavirus disease 2019 Status: Acute Assessment and Plan: Started Remdesivir, Decadron, Supplemental Oxygen currently 2L/min NC, monitor technician with SpO2 monitoring, will monitor ALT, Creatinine, PT/INR, IVF, Zofran 04/15/2021 Continue with above regimen, oxygen has been weaned to 1 liter/minute, SpO2 95% or better, ALT 27, eGFR 50, PT/INR 90/8 was given vitamin K INR recheck and found to be 5, creatinine 1.37 04/16/2021 WBC 14.7 likely d/t steroids, will continue to monitor, continue with above, Pt has SOB early this AM, NC remains at 1L/min with SpO2 at 91% 04/17/2021 WBC 11.7, Pt states breathing better, attempted to wean off O2 but required a 6 minute walk test which indicated Pt needs 1 L/min at rest and at HS and 3 L/min with activity. (2) Hypokalemia: Code(s): E87.6 - Hypokalemia Status: Acute Assessment and Plan: Potassium 3.3 supplemented with 40 mEq PO, will monitor and supplement as needed, Pt states he has not been eating for the past 5 days. 04/15/2021 potassium 3.9, continue to monitor 04/16/2021 potassium 4.2 04/17/2021 Resolved (3) Hypomagnesemia: Code(s): E83.42 - Hypomagnesemia Status: Acute Assessment and Plan: Magnesium 1.4 supplemented with 4gm IVPB, will monitor and supplement as needed, Pt states he has not been eating for the past 5 days. 04/15/2021 magnesium 2.4, continue to monitor 04/16/2021 will monitor as indicated 04/17/2021 resolved (4) CHF (congestive heart failure): Qualifiers: Heart failure chronicity: acute on chronic Heart failure type: systolic Qualified Code(s): I50.23 - Acute on chronic systolic (congestive) heart failure Code(s): I50.9 - Heart failure, unspecified Status: Acute Assessment and Plan: BNP 7918, No IVFs, tolerating water provided he uses straw, no edema, lungs diminished without rales but with rhonchi in posterior bases, continue Coreg 04/15/2021 will obtain BNP tomorrow, lung sounds without rales but little diminished 04/16/2021 Improved BNP now 5598, Lung sounds diminished but clear 04/17/2021 Lungs clear, no peripheral edema, elevated d/t COVID? (5) Chronic kidney disease: Qualifiers: Chronic kidney disease stage: unspecified stage Qualified Code(s): N18.9 - Chronic kidney disease, unspecified Code(s): N18.9 - Chronic kidney disease, unspecified Status: Acute Assessment and Plan: Cr 1.4 and appears to be at Pt's baseline, avoiding nephrotoxic medications as best possible, renal dose medications when needed, monitoring renal functions with Remdesivir 04/15/2021 creatinine stable now 1.37, continue with above 04/16/2021 Cr 1.45, eGFR 36 04/17/2021 Cr 1.4, eGFR 37, PT/INR 16.8/1.6, will write for Lab work at [facility] for Pt to get done prior to PCP office visit. (6) COPD (chronic obstructive pulmonary disease): Qualifiers: COPD type: unspecified COPD Qualified Code(s): J44.9 - Chronic obstructive pulmonary disease, unspecified Code(s): J44.9 - Chronic obstructive pulmonary disease, unspecified Status: Acute Assessment and Plan: Chronic and Stable, Albuteroll ordered PRN, Pt has supplemental O2 for his COVID, will monitor and make adjustments as needed. (7) Hypertension: Qualifiers: Hypertension type: unspecified Qualified Code(s): I10 - Essential (primary) hypertension Code(s): I10 - Essential (primary) hypertension Status: Acute Assessment and Plan: Currently BP 143/64 with HR at 62, has pacemaker, BP stable, continue home medications, continue Coreg and Lisinopril 04/15/2021 BP stable 112-146/56-68 HR paced 04/16/2021 VSS no changes at this time 04/17/2021 VSS, no changes to medications at this time. (8) Hyperlipidemia: Qualifier
--- NOTE | 2021-04-17 17:06 | PC.NURSE ---
Pt discharged today after discharge teaching completed. All belongings returned to pt, Clothing, cell phone, cell callisthenics instructor, brian pack with billfold, and glasses. Pt taken to lobby via WC and helped into family car. Pt condition is stable.
== END 2021-04-17 15:40 | disposition home or self-care (01) | DRG 177 ==
LOC: CHSED 12:26 → CHS2ND 12:32
PROVIDERS: Nurse Practitioner Family; Admitting Provider Emergency Medicine; Emergency Provider Emergency Medicine; PCP Family Medicine; Visit Provider Emergency Medicine
DX: U07.1 COVID-19 (principal); J12.82 Pneumonia due to coronavirus disease 2019; I13.0 Hypertensive heart and chronic kidney disease with heart failure and stage 1 through stage 4 chronic kidney disease, or unspecified chronic kidney disease; I50.9 Heart failure, unspecified; N18.9 Chronic kidney disease, unspecified; J44.9 Chronic obstructive pulmonary disease, unspecified; E78.5 Hyperlipidemia, unspecified; F17.210 Nicotine dependence, cigarettes, uncomplicated; Z86.73 Personal history of transient ischemic attack (TIA), and cerebral infarction without residual deficits; Z86.010 Personal history of colon polyps; E83.42 Hypomagnesemia; E87.6 Hypokalemia
CPT/HCPCS: 36415; 71045; 80048; 80053; 82728; 83605; 83735; 83880; 84145; 84484; 85025; 85027; 85380; 85610; 86140; 94618; 96374; 99285; A9270; J1100; J3430; J3475; J8540

== ENCOUNTER 2021-07-20 12:27 | Outpatient (CLI) | payer MEDICARE, SELFPAY ==
[2021-07-20 13:56] LABS: Creatinine Urine 51.4 mg/dL; Total Protein Urine Random 6 mg/dL; Ur Ttl Prot Creatinine Ratio 0.12 mg/mg (0-0.20)
[2021-07-20 13:58] LABS: Hematocrit 35.7 % (42.0-52.0); Hemoglobin 11.6 g/dL (14.0-18.0); Mean Corpuscular HGB Conc 32.5 g/dl (32-36); Mean Corpuscular Hemoglobin 33.5 pg (26-34); Mean Corpuscular Volume 103.2 fl (80-100); Mean Platelet Volume 9.3 fl (7.4-10.4); Platelet Count Result 163 k/mm3 (150-375); Red Blood Count 3.46 M/mm3 (4.6-6.20); Red Cell Distribution Width 13.3 % (11.5-14.5); White Blood Count 5.3 K/mm3 (4.5-10.0)
[2021-07-20 14:11] LABS: Albumin Level 3.9 g/dL (3.5-5.1); Anion Gap 7 mmol/L (8-16); Blood Urea Nitrogen 21 mg/dL (9-20); Calcium 8.9 mg/dL (8.4-10.2); Carbon Dioxide 31 mmol/L (22-30); Chloride 102 mmol/L (98-107); Estimated Glomerular Filt Rate 36; Glucose 82 mg/dL (65-110); Potassium 4.1 mmol/L (3.4-5.0); Sodium 140 mmol/L (137-145)
[2021-07-20 14:21] LABS: Parathyroid Intact 92.1 pg/mL (7.5-53.5)
== END 2021-07-20 12:28 | disposition home or self-care (01) ==
PROVIDERS: PCP Family Medicine; Visit Provider Internal Medicine Nephrology
DX: N18.32 Chronic kidney disease, stage 3b (principal)
CPT/HCPCS: 36415; 80069; 82570; 83970; 84156; 85027

== ENCOUNTER 2022-03-24 12:33 | Outpatient (CLI) | payer MEDICARE, SELFPAY ==
[2022-03-24 13:07] LABS: Hematocrit 33.8 % (42.0-52.0); Hemoglobin 10.8 g/dL (14.0-18.0); Mean Corpuscular Hemoglobin 32.5 pg (26-34); Mean Corpuscular Volume 101.8 fl (80-100); Mean Platelet Volume 9.6 fl (7.4-10.4); Platelet Count Result 150 k/mm3 (150-375); Red Blood Count 3.32 M/mm3 (4.6-6.20); Red Cell Distribution Width 13.7 % (11.5-14.5); White Blood Count 4.6 K/mm3 (4.5-10.0)
[2022-03-24 13:21] LABS: Albumin Level 3.8 g/dL (3.5-5.1); Anion Gap 8 mmol/L (8-16); Blood Urea Nitrogen 24 mg/dL (9-20); Calcium 8.5 mg/dL (8.4-10.2); Carbon Dioxide 25 mmol/L (22-30); Chloride 102 mmol/L (98-107); Estimated Glomerular Filt Rate 39; Glucose 97 mg/dL (65-110); Phosphorus 3.5 mg/dL (2.5-4.5); Potassium 4.7 mmol/L (3.4-5.0); Sodium 135 mmol/L (137-145)
[2022-03-24 13:30] LABS: Creatinine Urine 105.5 mg/dL; Total Protein Urine Random 7 mg/dL; Ur Ttl Prot Creatinine Ratio 0.07 mg/mg (0-0.20)
[2022-03-24 17:03] LABS: Parathyroid Intact 130.3 pg/mL (7.5-53.5)
== END 2022-03-24 12:34 | disposition home or self-care (01) ==
LOC: ANHLAB 12:35
PROVIDERS: PCP Family Medicine; Visit Provider Internal Medicine Nephrology
DX: N18.32 Chronic kidney disease, stage 3b (principal)
CPT/HCPCS: 36415; 80069; 82306; 82570; 83970; 84156; 85027

== ENCOUNTER 2022-08-02 15:23 | Outpatient (CLI) | payer MEDICARE, SELFPAY ==
--- NOTE | ~2022-08-02 | CT_ITS ---
CT of the Abdomen and Pelvis: Indication: Bilateral hydronephrosis Technique: 2.5 mm axial scans were obtained through the abdomen and pelvis prior to and following in travenous administration of 130 cc of Omnipaque 350. Dose reduction technique was used on this scan b y utilizing automated exposure control and iterative reconstruction technique. The dose-length produc t (DLP) was 713.82 mGy-cm. Findings: Scans through the lung bases demonstrate calcified right basilar pleural plaques. The liver, spleen, pancreas, gallbladder, and adrenal glands are within normal limits. No evidence o f aortic aneurysm. There is severe bilateral hydroureteronephrosis with cortical thinning bilaterally , left worse than right. No lymphadenopathy. Left inguinal hernia is present, containing the proximal sigmoid colon. No bowel wall thickening or b owel obstruction. Images through the pelvis were performed. Urinary bladder is partly distended, with diffuse bladder w all trabeculation. There is a diverticulum at the anterior dome of the bladder measuring 4.5 cm in di ameter. Prostate gland is enlarged and focally indents through the bladder base. Impression: Severe bilateral hydroureteronephrosis, as detailed above. Urinary bladder wall trabeculation with associated diverticulum at the dome of the bladder, as detail ed above. Correlate for neurogenic bladder versus chronic bladder outlet obstruction. Left inguinal hernia containing the proximal sigmoid colon. No bowel obstruction or bowel wall thicke corin. Reviewed, dictated and finalized at [facility]. NISTRATIVE SPECIALIST Impression: Severe bilateral hydroureteronephrosis, as detailed above. Urinary bladder wall trabeculation with associated diverticulum at the dome of the bladder, as detailed above. Correlate for neurogenic bladder versus chronic bladder outlet obstruction. Left inguinal hernia containing the proximal sigmoid colon. No bowel obstructio n or bowel wall thickening.
[2022-08-02 16:02] LABS: Estimated Glomerular Filt Rate 32
== END 2022-08-02 15:24 | disposition home or self-care (01) ==
PROVIDERS: PCP Family Medicine; Visit Provider Urology
DX: N13.30 Unspecified hydronephrosis (principal); K40.90 Unilateral inguinal hernia, without obstruction or gangrene, not specified as recurrent
CPT/HCPCS: 74178; Q9967

== ENCOUNTER 2022-08-27 08:32 | Outpatient (CLI) | payer MEDICARE, SELFPAY ==
--- NOTE | ~2022-08-27 | XR_ITS ---
EXAMINATION: CYSTOGRAM DATE: 08/27/2022 09:13 INDICATION: Hydronephrosis TECHNIQUE: Initial director of counseling radiograph of the pelvis was performed. There was retrograde administration of 350 cc Omnipaque 350 mixed with saline contrast into patient's existing quiles catheter. Fluorosco pic images of the pelvis were obtained. A post-void image was also performed. Comparison made to CT dated 08/02/2022. FINDINGS: There is normal retrograde filling of the bladder. Bladder wall is diffusely trabeculated c onsistent with bladder wall thickening seen on recent CT examination. No intraluminal filling defects . There are bladder diverticula at the superior margin of the bladder. No evidence for bladder leak o r vesicoureteral reflux. IMPRESSION: 1. Diffusely trabeculated bladder wall with diverticula at the superior margin. Findings likely rela te to outlet obstruction from enlarged prostate gland. Reviewed, dictated and finalized at location A. HT FOLLOWER IMPRESSION: 1. Diffusely trabeculated bladder wall with diverticula at the superior margin . Findings likely relate to outlet obstruction from enlarged prostate gland.
== END 2022-08-27 08:33 | disposition home or self-care (01) ==
PROVIDERS: PCP Family Medicine; Visit Provider Urology
DX: N13.30 Unspecified hydronephrosis (principal)
CPT/HCPCS: 51600; 74430; Q9967

== ENCOUNTER 2022-09-01 14:56 | Outpatient (CLI) | payer MEDICARE, SELFPAY ==
--- NOTE | ~2022-09-01 | US_ITS ---
EXAMINATION: US renal BI DATE: 09/01/2022 16:01 INDICATION: Bilateral hydronephrosis. TECHNIQUE: Multiple ultrasound grayscale images of the kidneys were obtained. COMPARISON: CT abdomen and pelvis 08/02/2022 FINDINGS: The right kidney measures 11.3 x 5.6 x 5.8 cm. The left kidney measures 11.7 x 4.2 x 4.6 cm. There is cortical thinning of the kidneys. The kidneys demonstrate normal parenchymal echogenicity. There is mild bilateral hydronephrosis. The bladder is decompressed by a Fernandes catheter. IMPRESSION: 1. Mild bilateral hydronephrosis with interval improvement. 2. Mild atrophy of the kidneys. Reviewed, dictated and finalized at location A. RVENTION ANALYST
== END 2022-09-01 14:57 | disposition home or self-care (01) ==
PROVIDERS: PCP Family Medicine; Visit Provider Urology
DX: N13.30 Unspecified hydronephrosis (principal); N26.1 Atrophy of kidney (terminal)
CPT/HCPCS: 76775

== ENCOUNTER 2022-09-08 12:28 | Outpatient (CLI) | payer MEDICARE, SELFPAY ==
--- NOTE | ~2022-09-08 | US_ITS ---
Renal-Bladder ultrasound Clinical History: Hydronephrosis Technique: Real-time sonographic imaging of the kidneys and urinary bladder was performed. Findings: The right kidney measures 12.8 cm in length and the left kidney measures 12.1 cm. There is severe bilateral hydronephrosis. Renal cortical echogenicity is within normal limits. No renal mass l esion is identified. The urinary bladder is moderately distended at the time of this exam. There is bladder wall trabecula tion. Prostate gland probably indents the bladder base. No suspicious mass clearly identified. Impression: Severe bilateral hydronephrosis. 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 Enlarged prostate gland, which indents the bladder base. Reviewed, dictated and finalized at location M. ER BEAD OPERATOR Impression: Severe bilateral hydronephrosis. 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 Enlarged prostate gland, which indents the bladder base.
== END 2022-09-08 12:29 | disposition home or self-care (01) ==
PROVIDERS: PCP Family Medicine; Visit Provider Nurse Practitioner Adult Health
DX: N13.30 Unspecified hydronephrosis (principal); N40.0 Benign prostatic hyperplasia without lower urinary tract symptoms
CPT/HCPCS: 76770

== ENCOUNTER 2022-09-23 12:54 | Outpatient (CLI) | payer MEDICARE, SELFPAY ==
[2022-09-23 13:30] LABS: Albumin Level 3.6 g/dL (3.5-5.1); Anion Gap 5 mmol/L (8-16); Blood Urea Nitrogen 32 mg/dL (9-20); Calcium 8.4 mg/dL (8.4-10.2); Carbon Dioxide 29 mmol/L (22-30); Chloride 99 mmol/L (98-107); Estimated Glomerular Filt Rate 49; Glucose 94 mg/dL (65-110); Phosphorus 3.6 mg/dL (2.5-4.5); Potassium 4.1 mmol/L (3.4-5.0); Sodium 133 mmol/L (137-145)
[2022-09-23 13:31] LABS: Hematocrit 38.6 % (42.0-52.0); Hemoglobin 11.5 g/dL (14.0-18.0); Mean Corpuscular HGB Conc 29.8 g/dl (32-36); Mean Corpuscular Hemoglobin 32.3 pg (26-34); Mean Corpuscular Volume 108.4 fl (80-100); Mean Platelet Volume 9.1 fl (7.4-10.4); Platelet Count Result 270 k/mm3 (150-375); Red Blood Count 3.56 M/mm3 (4.6-6.20); White Blood Count 11.8 K/mm3 (4.5-10.0)
[2022-09-23 13:42] LABS: Parathyroid Intact 105.2 pg/mL (7.5-53.5)
[2022-09-23 13:49] LABS: Creatinine Urine 144.2 mg/dL; Total Protein Urine Random 19 mg/dL; Ur Ttl Prot Creatinine Ratio 0.13 mg/mg (0-0.20)
== END 2022-09-23 12:55 | disposition home or self-care (01) ==
LOC: ANHLAB 12:57
PROVIDERS: PCP Family Medicine; Visit Provider Internal Medicine Nephrology
DX: N18.32 Chronic kidney disease, stage 3b (principal); E21.1 Secondary hyperparathyroidism, not elsewhere classified
CPT/HCPCS: 36415; 80069; 82306; 82570; 83970; 84156; 85027

== ENCOUNTER 2022-10-08 14:34 | Outpatient (CLI) | payer MEDICARE, SELFPAY ==
--- NOTE | 2022-10-09 17:34 | WPDPFTINT ---
PFT Procedure Performed PFT Procedure Performed Spirometry with Pre/Post Bronchodilator Plethysmography (Lung Vol) Diffusing Cap (DLCO) Flow Vol Loop PFT Interpretation DOS:10/08/2022 REQUESTING: Dr. Moises Zimmerman REASON FOR TESTING: COPD PULMONARY FUNCTION TESTS Results are reliable and reproducible. Spirometry: FEV1 is 1.34 L, 52% predicted, decreased. FVC is 2.45 L, 71% predicted, below normal. FEV1:FVC 55%, decreased. After bronchodilator, FEV1 increases 17%, 1.57 L, a significant response. FVC increase 10%, 2.69 L. The FEV1:FVC ratio post bronchodilator is 58%, below normal. Lung volumes: Total lung capacity is 6.97 L, 108%, normal. Residual volume is 4.43 L, 177% predicted, consistent with severe air trapping. Airways resistance is 1.31 cmH20/L/sec, 451%, increased. Diffusion: DLCO is 15.4, 69% predicted, at the lower end of the normal range. DLCO/VA is 2.56, 68%, decreased slightly below the normal range. Flow volume loop: There is coving of the expiratory limb consistent with obstruction.. IMPRESSION: This study shows a moderate obstructive ventilatory impairment with good response to bronchodilator, severe air trapping and borderline low diffusion. In the proper clinical setting this pattern is consistent with emphysema. Cristin Smith MD
== END 2022-10-08 14:35 | disposition home or self-care (01) ==
PROVIDERS: PCP Family Medicine; Visit Provider Family Medicine
DX: J44.9 Chronic obstructive pulmonary disease, unspecified (principal); R94.2 Abnormal results of pulmonary function studies
CPT/HCPCS: 94060; 94726; 94729

== ENCOUNTER 2022-10-19 13:25 | Outpatient (CLI) | payer MEDICARE, SELFPAY ==
--- NOTE | 2022-10-19 13:53 | ECG_ITS ---
Measurements Intervals [place] Rate: 60 P: 134 NC: 204 QRS: -19 QRSD: 138 T: 91 QT: 436 QTc: 436 Interpretive Statements ELECTRONIC ATRIAL PACEMAKER LEFT BUNDLE BRANCH BLOCK BASELINE ARTIFACT- I, II, III, AVR, AVL, AVF, V1-V6 ABNORMAL ECG NO PREVIOUS ECG AVAILABLE FOR COMPARISON Electronically Signed On 10-19-2022 16:31:21 BANK PRESIDENT by Domingo Jo D.O.
[2022-10-19 14:21] LABS: INR 1.3; Prothrombin Time 15.5 Seconds (11.1-14.7)
== END 2022-10-19 13:26 | disposition home or self-care (01) ==
LOC: ANHSURGERY 13:33
PROVIDERS: Anesthesiology; PCP Family Medicine; Visit Provider Urology
DX: Z01.812 Encounter for preprocedural laboratory examination (principal); Z01.810 Encounter for preprocedural cardiovascular examination; I10 Essential (primary) hypertension; Z79.01 Long term (current) use of anticoagulants; Z95.0 Presence of cardiac pacemaker; I44.7 Left bundle-branch block, unspecified
CPT/HCPCS: 36415; 85610; 85730; 93005

== ENCOUNTER 2022-10-21 01:17 | Day surgery (SDC) | payer MEDICARE, SELFPAY ==
--- NOTE | 2022-10-13 07:59 | PM.IMHP ---
H&P: HPI History of Present Illness Date/Time: 10/13/22 07:59 Chief Complaint: Urinary retention Narrative: is an 82-year-old gentleman referred in July 2022 after a MRI spine revealed severe bilateral hydronephrosis. Cystoscopy demonstrated trilobar hyperplasia of the prostate. Urodynamics are consistent with bladder outlet obstruction. After discussion of therapeutic options he has elected to proceed with TURP. He is aware the risk including, but not limited to, persistent urinary retention, persistent hydronephrosis, hematuria. Review of Systems Review of Systems: All systems reviewed & are unremarkable except as noted in HPI and below PMFSH Past Medical History Medical History Adenomatous colon polyp Azotemia (09/06/16) CHF (congestive heart failure) Chronic kidney disease COPD (chronic obstructive pulmonary disease) CVA (cerebral vascular accident) GI bleed (08/04/15) Hyperlipidemia Hypertension Lump of skin (11/29/16) Unspecified viral infection characterized by skin and mucous membrane lesions (03/01/17) Unspecified visual disturbance (10/07/14) Surgical History Surgical History History of vasectomy Family History Family History Father , Cause of unknown. No problems noted. Mother , Cancer. Unknown type. No problems noted. Other Unknown family medical history Social History Social History Smoking packs per day: 1 Smoking cigarettes per day: 20.0 Years smoked: 57 Smoking pack-years: 57.00 Smoking status: Never smoker Tobacco type: cigarettes Second hand tobacco smoke exposure: No Alcohol intake: current Substance use: never Substance use type: does not use Lack of Transportation: No Lack of Food: Never True Current Housing: I Have Housing Concerned About Future Housing: No Difficulty Paying Gas/Electric Bills: No Difficulty Paying for Meds: No Currently Unemployed: No Education: Trade/Vocational Certificate Living arrangements: alone Additional living arrangements comments: . 2 Children. Occupation/Education: retired Additional occupation/education comments: [employer] 4 years. [employer] 23 years. Gender identity (if verbalized by the patient): Male Spiritual care concerns: No Meds Home Medications and Allergies Home Medications Medication Instructions Recorded Confirmed Type aspirin 81 mg tablet,delayed 81 mg PO DAILY 08/06/19 10/06/22 History release (Adult Low Dose Aspirin) lisinopril 20 mg tablet 20 mg PO DAILY 08/06/19 10/06/22 History atorvastatin 80 mg tablet 80 mg PO QPM 09/25/20 10/06/22 History carvedilol 6.25 mg tablet 12.5 mg PO DAILY 09/25/20 10/06/22 History warfarin 2.5 mg tablet See Rx Instructions .Route .COMPLEX 09/25/20 10/06/22 History finasteride 5 mg tablet See Rx Instructions .Route 10/17/20 10/06/22 Rx .COMPLEX #90 tabs pantoprazole 40 mg tablet,delayed See Rx Instructions .Route 12/11/20 10/06/22 Rx release .COMPLEX #90 tabs warfarin 2.5 mg tablet 1.25 mg PO DAILY@1700 #30 tabs 04/17/21 10/06/22 Rx cholecalciferol (vitamin D3) 50 50 mcg PO DAILY 10/06/22 10/06/22 History mcg (2,000 unit) capsule tamsulosin 0.4 mg capsule 0.4 mg PO DAILY 10/06/22 10/06/22 History Allergies Allergy/AdvReac Type Severity Reaction Status Date / Time Penicillins Allergy Severe Hives Verified 11/06/20 07:16 Exam Const: General: no acute distress Resp: Effort & Inspection: normal respiratory effort GI: Inspection: non-distended GI Palp: No abdominal tenderness and No Guarding due to palpation present (GI) Auscultation: normal bowel sounds Assessment and Plan Assessment and plan (1) Urinary retention due to benign prostatic hyperpl
--- NOTE | 2022-10-18 14:24 | PC.NURSE ---
Report to the Outpatient Waiting Room, entrance under the green pavilion located off [facility], at time _0900 on date _10/21/22 . Planned Procedure Time: __1100 . Time changes happen often and if your time is changed the preop area will call you the afternoon before. - You and your visitor will be asked to self-screen and do not enter if you have any COVID symptoms. - Only one visitor is requested with a max of two and NO children visitors are allowed at this time. - The patient visitor may be requested to leave or wait in car when not with patient due to distancing restrictions. - A mask is optional within the hospital at this time. Patients may have clear liquids (water, carbonated beverages, clear teas, apple juice) until 3 hours prior to surgery with a maximum of 20 ounces. - No food from midnight until time of surgery - Infants may have breast milk until 4 hours before surgery, formula 6 hours prior to surgery. - Children will be allowed to drink immediately following surgery. If applicable, please bring a bottle or sippy cup to assist with drinking. Juice, water, soda, and popsicles are readily available. For infants on formula, please bring formula the day of surgery. Pacifiers are allowed. Take the following medications with a SIP of water the morning of surgery: __CARVEDILOL DO NOT STOP ANY OF YOUR OTHER PRESCRIPTION MEDICATIONS PRIOR TO SURGERY ?EXCEPT THE FOLLOWING Medications to discontinue per physician __DAUGHTER DOUGLAS STATES_WARFARIN_AND ASPIRIN 7 DAYS PRE OP PER DR AMIN..LAST DOSE 10/13/22____.ALL VITAMINS 3 DAYS PRE OP.LAST DOSE 10/17/22 Please no make-up, nail persian, hairspray, perfume, deodorant, or body powder the day of surgery. No jewelry (including any body piercings) or valuables the day of surgery, leave them at home. Please take a shower or bath the night before, or the morning of, surgery with an antibacterial soap. Wear comfortable, loose fitting clothing. Children are encouraged to wear pajamas. - Jewelry must be removed prior to entering the operating room. Rings and piercings that are not removed may be cut off. - The hospital will not accept responsibility for valuables. - Please leave all valuables, including medications, at home the day of surgery. If you are going home after surgery, a licensed salesperson driver must drive you home. - NO public transportation without another adult if you receive anesthesia. - We recommend that an adult stay with you for 24 hours following discharge. - We also recommend that you do not drive, make important decision, drink alcoholic beverages, or take any drugs that were not prescribed by your health care provider for at least 24 hours after your discharge time. For Pediatric surgeries, we recommend two adults accompany the child home. Follow any additional instructions given to you from your surgeon. If you or anyone in your household have experienced Covid symptoms in the past week, please notify your surgeon or the nurse liaison at the phone number below for possible testing. Telephone instructions given to _PT'S DAUGHTER DOUGLAS and asked if any additional questions and then verbalized understanding. Patient advised to call surgeon office or pre surgery nurse liaison [phone] if any additional questions.
[2022-10-18 14:35] VITALS: BMI 24.0
--- NOTE | 2022-10-20 10:01 | WPDANESEPPF ---
Anes - Initial Pre Proc Eval Procedure: Operation Date: 10/21/22 11:00 Proposed Procedures p Trans Urethral Resection Prostate - Mane Melvin MD Date/Time: 10/20/22 10:01 Surgeon: Mane Melvin MD Pre Op Diagnosis: BPH Patient Data Age: 82 Gender: M Height: 1.73 m Weight: 71.7 kg Allergies Allergy/AdvReac Type Severity Reaction Status Date / Time Penicillins Allergy Severe Hives Verified 10/18/22 14:09 Home Medications Medication Instructions Recorded Confirmed Type aspirin 81 mg tablet,delayed 81 mg PO DAILY 08/06/19 10/18/22 History release (Adult Low Dose Aspirin) lisinopril 20 mg tablet 20 mg PO DAILY 08/06/19 10/18/22 History atorvastatin 80 mg tablet 80 mg PO QPM 09/25/20 10/18/22 History carvedilol 6.25 mg tablet 12.5 mg PO DAILY 09/25/20 10/18/22 History warfarin 2.5 mg tablet See Rx Instructions .Route .COMPLEX 09/25/20 10/18/22 History finasteride 5 mg tablet See Rx Instructions .Route 10/17/20 10/18/22 Rx .COMPLEX #90 tabs pantoprazole 40 mg tablet,delayed See Rx Instructions .Route 12/11/20 10/18/22 Rx release .COMPLEX #90 tabs cholecalciferol (vitamin D3) 50 50 mcg PO DAILY 10/06/22 10/18/22 History mcg (2,000 unit) capsule tamsulosin 0.4 mg capsule 0.4 mg PO DAILY 10/06/22 10/18/22 History ECG: Date of Service: 10/19/22 Procedure(s): CA 12 lead EKG Accession Number(s): [id number] cc: ~ ? Measurements Intervals? [place]? Rate: ? 60 ? P:? 134 [place]: ? 204? QRS:? -19 QRSD: ? 138? T:? 91 QT: ? 436? QTc:? 436? Interpretive Statements ELECTRONIC ATRIAL PACEMAKER LEFT BUNDLE BRANCH BLOCK BASELINE ARTIFACT- I, II, III, AVR, AVL, AVF, V1-V6 ABNORMAL ECG NO PREVIOUS ECG AVAILABLE FOR COMPARISON Electronically Signed On 10-19-2022 16:31:21 CHICKEN AND FISH BUTCHER by Domingo Jo D.O. Patient hx anesthesia problems: none Family hx anesthesia problems: none Results Review: All pre-operative results and documents have been reviewed as part of the pre-operative evaluation. [facility] Past Medical History Medical History (Updated 10/20/22 @ 10:04 by David Chino MD) Adenomatous colon polyp Azotemia (09/06/16) CHF (congestive heart failure) ef 28% 03/2019 echo Chronic kidney disease COPD (chronic obstructive pulmonary disease) CVA (cerebral vascular accident) GI bleed (08/04/15) Hyperlipidemia Hypertension Lump of skin (11/29/16) Unspecified viral infection characterized by skin and mucous membrane lesions (03/01/17) Unspecified visual disturbance (10/07/14) Surgical History Surgical History (Updated 10/20/22 @ 10:04 by David Chino MD) AICD (automatic cardioverter/defibrillator) present History of vasectomy Family History Family History Father , Cause of unknown. No problems noted. Mother , Cancer. Unknown type. No problems noted. Other Unknown family medical history Social History Social History Smoking packs per day: 0.5 Smoking cigarettes per day: 10.0 Years smoked: 50 Smoking pack-years: 25.00 Smoking status: Former smoker Tobacco type: cigarettes Second hand tobacco smoke exposure: No Smoking end date: 08/15/12 Alcohol intake: current Alcohol use details: TWO DRINKS PER MONTH Substance use: never Substance use type: does not use Lack of Transportation: No Lack of Food: Never True Current Housing: I Have Housing Concerned About Future Housing: No Difficulty Paying Gas/Electric Bills: No Difficulty Paying for Meds: No Currently Unemployed: No Education: Trade/Vocational Certificate Living a
[2022-10-21] VITALS (12 sets, daily range): BP systolic 102–136; BP diastolic 53–83; PULSE 58–87; RESP 12–21; TEMP 35.9–36.5; O2SAT 94–100
--- NOTE | 2022-10-21 06:43 | WPDHPUPDATE1 ---
History and Physical Update Update Date/Time: 10/21/22 06:43 History and Physical has been reviewed, including an updated exam of the patient. There are NO changes in the patient's condition. Risks, benefits, and alternatives have been discussed and questions answered. Patient agrees to proceed with procedure.
[2022-10-21] MEDS: LACTATED RINGERS 1,000 ML 30 ML IV CONT ×2 (09:45→12:02)
[2022-10-21 09:55] LABS: INR 1.1; Prothrombin Time 13.5 Seconds (11.1-14.7)
[2022-10-21] MEDS: ceFAZolin 2 GM/D5W 50 ML 2 GM/50 ML BAG IVPB (10:49)
[2022-10-21] MEDS: LIDOCAINE HCL 2% GEL UROJET 10 ML PKG MUCOUS MEM (11:10)
--- NOTE | 2022-10-21 11:35 | P.OP_ITS ---
Procedure Note - Detailed Date of Procedure 10/21/22 Pre-op Diagnosis BPH Post-op Diagnosis Same Procedure Performed TURP Surgeon Mane Melvin MD Anesthesia General Description of Procedure The patient was brought to the operative suite where he is prepped and draped in routine sterile fashion while in the dorsal lithotomy position after the uneventful induction of a general LMA anesthetic. A 27 [place] resectoscope sheath was placed into his bladder. He had no urethral strictures. The patient had trilobar hyperplasia with large median lobe. The bladder itself was endoscopically normal, showing no mucosal hyperemia, intravesical neoplasm or foreign bodies. There was a single, orthotopic ureteral orifice bilaterally. These orifices were identified and preserved throughout the remainder of the procedure. Attention was first turned to resection of the median lobe. This resection was undertaken from the bladder neck to the verumontanum and carried out until the transverse fibers of the bladder neck were identified. The left lateral lobe was then resected starting at the 6 o'clock position, working counter clockwise to the 12 o'clock position. Again, resection was carried out from the bladder neck to the verumontanum until the capsular fibers of the prostate were identified. The right lateral lobe was resected in a similar fashion starting at the 6 o'clock position working clockwise to the 12 o'clock position and carried out until the capsular fibers of the prostate were identified. Apical tissue was then circumferentially resected. All chips were evacuated from the bladder using an Savage IO evacuator. Hemostasis was obtained with electric cautery. The ureteral orifices were again inspected and found to be without injury. Estimated blood loss throughout this procedure was 30cc. The patient was taken to recovery room having tolerated this well. Drains Yes Pathology Yes Complications No immediate complications Condition Stable
[2022-10-21] MEDS: fentaNYL CITRATE INJ (*CRX) 100 MCG/2 ML VIAL 25 MCG IV PUSH ×2 (12:02→12:12)
--- NOTE | 2022-10-21 13:49 | ADMGEN ---
This patient, Mal Scott, was admitted to [facility] Surg Room 323-01 at 1300. Patient/family oriented to hospital policies and general routines including ID bracelet, bed and alarms, visiting hours, pain management, procedures, bathroom and other care routines, personal items, smoking policy, room service/diet, and visiting hours. Information on how to activate the Rapid Response Team has been discussed. Patient/Family are encouraged to report perceived risks to care and to ask questions if they do not understand what they are told or what they should do.
[2022-10-21] MEDS: ATORVASTATIN 40 MG TABLET 80 MG PO (17:17)
[2022-10-21] MEDS: DOCUSATE SODIUM 100 MG CAPSULE PO (17:18)
[2022-10-21] MEDS: ceFAZolin 1 GM/NS 50 ML 1 GM/50 ML BAG IVPB (17:18)
[2022-10-21] MEDS: PANTOPRAZOLE 40 MG TABLET PO (21:07)
[2022-10-22] MEDS: ceFAZolin 1 GM/NS 50 ML 1 GM/50 ML BAG IVPB (02:26)
[2022-10-22 02:38] VITALS: BP 104/57; PULSE 78; RESP 20; TEMP 36.3; O2SAT 96
[2022-10-22 06:38] VITALS: BP 102/56; PULSE 75; RESP 16; TEMP 36.2; O2SAT 95
[2022-10-22 07:02] LABS: Hematocrit 29.1 % (42.0-52.0); Hemoglobin 9.4 g/dL (14.0-18.0)
[2022-10-22 07:09] LABS: Anion Gap 2 mmol/L (8-16); Blood Urea Nitrogen 19 mg/dL (9-20); Calcium 7.8 mg/dL (8.4-10.2); Carbon Dioxide 29 mmol/L (22-30); Chloride 105 mmol/L (98-107); Estimated CRCL calculation 36 ml/min; Estimated Glomerular Filt Rate 49; Glucose 102 mg/dL (65-110); Potassium 4.1 mmol/L (3.4-5.0); Sodium 136 mmol/L (137-145)
--- NOTE | 2022-10-22 07:28 | WPDUROPN2 ---
Progress Note: A&P Assessment and Plan (1) Urinary retention due to benign prostatic hyperplasia: Code(s): N40.1 - Benign prostatic hyperplasia with lower urinary tract symptoms; R33.8 - Other retention of urine Status: Acute Assessment and Plan: Doing well POD #1 Stop CBI now / voiding trial later this morning if urine remains clear Subjective Subjective Date/Time Seen: 10/22/22 07:28 Comfortable, no complaints Review of Systems Cardiovascular: Cardiovascular: Denies chest pain, Denies lightheadedness, Denies palpitations and Denies dyspnea Respiratory: Respiratory: Denies dyspnea Gastrointestinal: Gastrointestinal: Denies diarrhea, Denies nausea and Denies vomiting Genitourinary: Genitourinary: Denies hematuria and Denies dysuria Endocrine: Endocrine: Denies palpitations Exam Const: General: no acute distress Resp: Effort & Inspection: normal respiratory effort GI: Inspection: non-distended GI Palp: No abdominal tenderness and No Guarding due to palpation present (GI) Auscultation: normal bowel sounds Objective Data Vital Signs Vital Signs: Vital Signs - 24 hr 10/21/22 08:52 10/21/22 11:35 10/21/22 11:45 Temperature 97.7 F 97.4 F L Pulse Rate 87 66 61 Respiratory Rate 16 16 16 Blood Pressure 102/83 113/67 134/63 Pulse Oximetry 100 100 100 Oxygen Delivery Room Air Simple Face Mask Room Air Oxygen Flow Rate 8 10/21/22 12:00 10/21/22 12:15 10/21/22 12:30 Temperature Pulse Rate 60 60 66 Respiratory Rate 12 16 16 Blood Pressure 121/55 L 112/63 127/58 L Pulse Oximetry 98 99 98 Oxygen Delivery Room Air Room Air Room Air Oxygen Flow Rate 10/21/22 12:45 10/21/22 12:53 10/21/22 13:08 Temperature 96.7 F L 97.1 F L Pulse Rate 60 59 L 58 L Respiratory Rate 14 19 20 Blood Pressure 118/71 136/61 126/59 L Pulse Oximetry 98 100 94 Oxygen Delivery Room Air Oxygen Flow Rate 10/21/22 13:38 10/21/22 14:38 10/21/22 22:38 Temperature 97 F L 96.8 F L 97.3 F L Pulse Rate 61 60 78 Respiratory Rate 20 21 H 18 Blood Pressure 129/58 L 130/54 L 116/53 L Pulse Oximetry 96 99 100 Oxygen Delivery Oxygen Flow Rate 10/22/22 02:38 Temperature 97.4 F L Pulse Rate 78 Respiratory Rate 20 Blood Pressure 104/57 L Pulse Oximetry 96 Oxygen Delivery Oxygen Flow Rate Intake/Output Intake/Output: Intake & Output 10/19/22 10/20/22 10/21/22 10/22/22 23:59 23:59 23:59 23:59 Intake Total 7420 3050 Output Total 5850 3250 Balance 1570 -200 Meds/Results Medications: Active Medications Generic Name Dose Route Start Last Admin Trade Name Freq PRN Reason Stop Dose Admin Hydrocodone Bitart/Acetaminophen 1 tab 10/21/22 12:53 Hydrocodone/Acetaminophen (*Crx) 5-325 Mg Tablet PO Q4H PRN Pain Rated 1-6 Atorvastatin Calcium 80 mg 10/21/22 18:00 10/21/22 17:17 Atorvastatin 40 Mg Tablet PO 80 mg QPM GRACIELA Administration Carvedilol 12.5 mg 10/22/22 09:00 Carvedilol 12.5 Mg Tablet PO DAILY [facility] Cephalexin HCl 500 mg 10/22/22 09:00 Cephalexin 500 Mg Capsule PO QID [facility] Docusate Sodium 100 mg 10/21/22 17:00 10/21/22 17:18 Docusate Sodium 100 Mg Capsule PO 100 mg BID [facility] Administration Hyoscyamine 0.125 mg 10/21/22 12:53 Hyoscyamine Sulfate 0.125 Mg Tablet SUBLINGUAL Q6H PRN Bladder Spasm Lisinopril 20 mg 10/22/22 09:00 Lisinopril 20 Mg Tablet PO DAILY [facility] Morphine Sulfate 2 mg 10/21/22 12:53 Morphine Sulfate (*Crx) 2 Mg/Ml Inj IV PUSH Q2H PRN Pain Rated 7-10 Naloxone HCl 0.1 mg 10/21/22 12:53 Naloxone Hcl 0.4 Mg/Ml Vial IV PUSH Q2M PRN Opiate Reversal Ondansetron HCl 4 mg 10/21/22 12:53 Ondansetron Inj 4 Mg/2 Ml Vial IV PUSH Q12H PRN Nausea And Vomiting Pantoprazole Sodium 40 mg 10/21/22 21:00 10/21/22 21:07 Pantoprazole 40 Mg Tablet PO 40 mg Q12HR GRACIELA Administration Labs Labs: Laboratory Result
[2022-10-22] MEDS: PANTOPRAZOLE 40 MG TABLET PO (08:51)
[2022-10-22] MEDS: lisinopriL 20 MG TABLET PO (08:51)
[2022-10-22] MEDS: CEPHALEXIN 500 MG CAPSULE PO (08:51)
[2022-10-22] MEDS: DOCUSATE SODIUM 100 MG CAPSULE PO (08:51)
[2022-10-22 08:52] VITALS: PULSE 85
[2022-10-22] MEDS: carvediloL 12.5 MG TABLET PO (08:52)
--- NOTE | 2022-10-22 09:57 | WPDANESPN ---
Anes - Prog Note Post-Op Date/Time: 10/22/22 09:57 Cardiovascular status: normal Respiratory status: normal Airway patency: baseline Mental status: baseline Post-Op hydration status: normal Vital Signs: Last Vital Signs Temp 36.2 C L 10/22/22 06:38 Pulse 85 10/22/22 08:52 Resp 16 10/22/22 06:38 BP 102/56 L 10/22/22 06:38 Pulse Ox 95 10/22/22 06:38 O2 Del Method Room Air 10/21/22 12:45 O2 Flow Rate 8 10/21/22 11:35 Pain Score (VAS): 0 I/O: Intake & Output 10/21/22 10/22/22 10/22/22 23:59 07:59 15:59 Intake Total 3170 3700 Output Total 1900 3250 Balance 1270 450 Laboratory Tests 10/22/22 06:22 10/22/22 06:22 10/22/22 10/22/22 06:22 06:22 Hgb 9.4 L Hct 29.1 L Sodium 136 L Potassium 4.1 Chloride 105 Carbon Dioxide 29 Anion Gap 2 L BUN 19 D Creatinine 1.40 H Estim Creat Clear Calc 36 Estimated GFR 49 L Glucose 102 Calcium 7.8 L Post-procedural complaints: none Patient Feedback: Patient satisfied with anesthetic care.
--- NOTE | 2022-10-22 16:13 | PM.DS ---
DS: Admitting Diagnosis Discharge Date 10/22/22 Admitting Diagnosis BPH DS: Summary Hospital Course Hospital Course: This patient with longstanding prostatism refractory for medical management was admitted on the morning of his planned TURP. The procedure was undertaken on that same day in an uneventful fashion. His post-operative course was, likewise, uneventful. On the evening of the procedure he was tolerating a diet. On POD#1 his urine was clear on CBI. The urine remained clear and, therefore, the catheter was removed late morning. The patient was observed for several hours, until he demonstrated he could void effectively without significant hematuria. He was discharged with careful instruction on limiting physical activity x2 weeks and plans to f/ in 2-3 weeks. At discharge he was comfortable and tolerating a diet. Time Spent with Patient Time attestation: Total time spent providing and/or coordinating discharge services: Exam Const: General: no acute distress Resp: Effort & Inspection: normal respiratory effort GI: Inspection: non-distended GI Palp: No abdominal tenderness and No Guarding due to palpation present (GI) Auscultation: normal bowel sounds DS: Data Data Completed and Pending Pending studies at discharge: Pending at discharge 10/21/22 11:10 Surgical [PTH] Routine Labs on day of discharge: Labs from last 24 hours 10/22/22 10/22/22 06:22 06:22 Hgb 9.4 L Hct 29.1 L Sodium 136 L Potassium 4.1 Chloride 105 Carbon Dioxide 29 Anion Gap 2 L BUN 19 D Creatinine 1.40 H Estim Creat Clear Calc 36 Estimated GFR 49 L Glucose 102 Calcium 7.8 L Discharge Plan Discharge Patient Disposition: Home, Self-Care Discharge Instructions: 1) Activity: No lifting/straining >15lbs. x2 weeks. 2) Diet: Resume normal pre-admission diet. 3) Follow-up: 2-3 weeks / call office for appointment ([phone]). Stand Alone Forms: General Discharge Instructions Discharge Orders: Discharge Order (Routine); Ordered 10/22/22 Ordered By: Mane Melvin Discharge Medications: New docusate sodium [Colace] 100 mg capsule 100 mg PO BID Qty: 30 0RF hydrocodone-acetaminophen 5-325 mg tablet 1 - 2 tablet PO Q6H PRN (Reason: pain) Qty: 20 0RF cephalexin 500 mg capsule 500 mg PO Q8H Qty: 15 0RF Continued cholecalciferol (vitamin D3) 50 mcg (2,000 unit) capsule 50 mcg PO DAILY lisinopril 20 mg tablet 20 mg PO DAILY carvedilol 6.25 mg tablet 12.5 mg PO DAILY atorvastatin 80 mg tablet 80 mg PO QPM Rx Instructions: TAKE ONE TABLET BY MOUTH DAILY pantoprazole 40 mg tablet,delayed release (DR/EC) See Rx Instructions .ROUTE .COMPLEX Qty: 90 0RF Dose Instruction: TAKE ONE TABLET BY MOUTH TWICE A DAY Rx Instructions: TAKE ONE TABLET BY MOUTH TWICE A DAY Held aspirin [Adult Low Dose Aspirin] 81 mg tablet,delayed release (DR/EC) 81 mg PO DAILY Hold Instructions: Resume on 10/25/22. warfarin 2.5 mg tablet See Rx Instructions .ROUTE .COMPLEX Hold Instructions: Resume on 04/23/21. Talk with your primary care provider before changing your Coumadin dose. For right now, until you meet with the provider only take 1.25mg by mouth at 5PM every day. Rx Instructions: ONE-HALF TABLET TUESDAY & TUESDAY, AND ONE WHOLE TABLET THE OTHER DAYS OF THE WEEK. Discontinued tamsulosin 0.4 mg capsule 0.4 mg PO DAILY finasteride 5 mg tablet See Rx Instructions .ROUTE .COMPLEX Qty: 90 0RF Dose Instruction: TAKE ONE TABLET BY MOUTH DAILY Rx Instructions: TAKE ONE TABLET BY MOUTH DAILY
== END 2022-10-22 12:30 | disposition home or self-care (01) ==
LOC: ANHSURGERY 08:53 → ANH3MEDSUR 12:56
PROVIDERS: PCP Family Medicine; Visit Provider Urology
PROC: 0VT08ZZ Resection of Prostate, Via Natural or Artificial Opening Endoscopic (ICD-10-PCS; CPT 52601; principal; 2022-10-21 11:00)
DX: N40.1 Benign prostatic hyperplasia with lower urinary tract symptoms (principal); R33.8 Other retention of urine; N13.30 Unspecified hydronephrosis; I50.9 Heart failure, unspecified; N18.9 Chronic kidney disease, unspecified; J44.9 Chronic obstructive pulmonary disease, unspecified; Z86.73 Personal history of transient ischemic attack (TIA), and cerebral infarction without residual deficits; E78.5 Hyperlipidemia, unspecified; I13.0 Hypertensive heart and chronic kidney disease with heart failure and stage 1 through stage 4 chronic kidney disease, or unspecified chronic kidney disease; Z79.01 Long term (current) use of anticoagulants
CPT/HCPCS: 52601; 36415; 80048; 85014; 85018; 85610; 85730; 88305; 93005; A9270; C1758; J0690; J3010; J7120

== ENCOUNTER 2022-12-09 10:03 | Emergency (ER) | payer MEDICARE, SELFPAY ==
[2022-12-09 10:03] VITALS: BP 118/72; PULSE 65; RESP 18; TEMP 36.9; O2SAT 97
--- NOTE | 2022-12-09 10:22 | ED.URI ---
HPI - URI/Sore Throat General Stated Complaint: sore throat Time Seen by Provider: 12/09/22 10:15 Source: patient and family Mode of arrival: ambulatory Limitations: no limitations History of Present Illness HPI Narrative: patient presents with family with a sore throat with cough that is mildly productive yellow sputum with no shortness of breath no fever chills does have some sinus congestion and pressure with no nausea vomiting no audible wheezing. MD elicited complaint: cough and sore throat Onset (ago): day(s) Consistency: constant Severity: mild Related Data Home Medications Medication Instructions Recorded Confirmed aspirin 81 mg tablet,delayed 81 mg PO DAILY 08/06/19 10/18/22 release (Adult Low Dose Aspirin) lisinopril 20 mg tablet 20 mg PO DAILY 08/06/19 10/18/22 atorvastatin 80 mg tablet 80 mg PO QPM 09/25/20 10/18/22 carvedilol 6.25 mg tablet 12.5 mg PO DAILY 09/25/20 10/18/22 warfarin 2.5 mg tablet See Rx Instructions .Route .COMPLEX 09/25/20 10/18/22 cholecalciferol (vitamin D3) 50 50 mcg PO DAILY 10/06/22 10/18/22 mcg (2,000 unit) capsule Allergies Allergy/AdvReac Type Severity Reaction Status Date / Time Penicillins Allergy Severe Hives Verified 10/18/22 14:09 Review of Systems Review of Systems: All systems reviewed & are unremarkable except as noted in HPI and below PMFSH Past Medical History Medical History Adenomatous colon polyp Azotemia (09/06/16) CHF (congestive heart failure) ef 28% 03/2019 echo Chronic kidney disease COPD (chronic obstructive pulmonary disease) CVA (cerebral vascular accident) GI bleed (08/04/15) Hyperlipidemia Hypertension Lump of skin (11/29/16) Unspecified viral infection characterized by skin and mucous membrane lesions (03/01/17) Unspecified visual disturbance (10/07/14) Surgical History Surgical History AICD (automatic cardioverter/defibrillator) present History of vasectomy Family History Family History Father , Cause of unknown. No problems noted. Mother , Cancer. Unknown type. No problems noted. Other Unknown family medical history Social History Social History Smoking packs per day: 0.5 Smoking cigarettes per day: 10.0 Years smoked: 50 Smoking pack-years: 25.00 Smoking status: Former smoker Tobacco type: cigarettes Second hand tobacco smoke exposure: No Smoking end date: 08/15/12 Alcohol intake: current Alcohol use details: TWO DRINKS PER MONTH Substance use: never Substance use type: does not use Lack of Transportation: No Lack of Food: Never True Current Housing: I Have Housing Concerned About Future Housing: No Difficulty Paying Gas/Electric Bills: No Difficulty Paying for Meds: No Currently Unemployed: No Education: Trade/Vocational Certificate Difficulty w/ Childcare or Family Care: No Living arrangements: alone Additional living arrangements comments: . 2 Children. Occupation/Education: retired Additional occupation/education comments: [employer] 4 years. [id number] 23 years. Gender identity (if verbalized by the patient): Male Spiritual care concerns: No Exam Const: General: healthy appearing Nutritional Appearance: well nourished Orientation/consciousness: patient oriented x3 Limitations: no limitations HENMT: Head: normal to inspection Face/Nose/Sinus: Normal external nose present Face and sinus: normal facial exam Mouth: Yes Normal oral and palatal mucosa present Eyes: Conjunctivae: conjunctivae normal Pupils: Equal, round and reactive pupils present Neck: Neck: normal visual inspection and no lymphadenopathy Chest: Chest palpation & inspection: normal inspection of the chest Resp: E
[2022-12-09 10:47] LABS: Strep Group A RT-PCR NOT DETECTED (Negative)
[2022-12-09 11:05] VITALS: BP 118/72; PULSE 65; RESP 18; TEMP 36.9; O2SAT 97
== END 2022-12-09 11:05 | disposition home or self-care (01) ==
PROVIDERS: Emergency Provider Emergency Medicine; PCP Family Medicine
DX: J32.9 Chronic sinusitis, unspecified (principal); I13.0 Hypertensive heart and chronic kidney disease with heart failure and stage 1 through stage 4 chronic kidney disease, or unspecified chronic kidney disease; I50.9 Heart failure, unspecified; N18.9 Chronic kidney disease, unspecified; Z86.73 Personal history of transient ischemic attack (TIA), and cerebral infarction without residual deficits; Z87.891 Personal history of nicotine dependence
CPT/HCPCS: 87651; 99282

== ENCOUNTER 2023-04-01 13:41 | Outpatient (CLI) | payer MEDICARE, SELFPAY ==
[2023-04-01 14:32] LABS: Hematocrit 39.1 % (42.0-52.0); Hemoglobin 12.7 g/dL (14.0-18.0); Mean Corpuscular HGB Conc 32.5 g/dl (32-36); Mean Corpuscular Hemoglobin 33.2 pg (26-34); Mean Corpuscular Volume 102.1 fl (80-100); Mean Platelet Volume 9.3 fl (7.4-10.4); Platelet Count Result 190 k/mm3 (150-375); Red Blood Count 3.83 M/mm3 (4.6-6.20); Red Cell Distribution Width 13.1 % (11.5-14.5); White Blood Count 7.7 K/mm3 (4.5-10.0)
[2023-04-01 14:44] LABS: Albumin Level 3.9 g/dL (3.5-5.1); Anion Gap 3 mmol/L (8-16); Blood Urea Nitrogen 21 mg/dL (9-20); Calcium 8.5 mg/dL (8.4-10.2); Carbon Dioxide 31 mmol/L (22-30); Chloride 101 mmol/L (98-107); Estimated Glomerular Filt Rate 36; Glucose 94 mg/dL (65-110); Phosphorus 3.2 mg/dL (2.5-4.5); Potassium 4.3 mmol/L (3.4-5.0); Sodium 135 mmol/L (137-145)
[2023-04-01 14:55] LABS: Parathyroid Intact 192.8 pg/mL (7.5-53.5)
[2023-04-01 15:06] LABS: Creatinine Urine 118.6 mg/dL; Total Protein Urine Random 12 mg/dL
== END 2023-04-01 13:42 | disposition home or self-care (01) ==
PROVIDERS: PCP Family Medicine; Visit Provider Internal Medicine Nephrology
DX: N18.32 Chronic kidney disease, stage 3b (principal)
CPT/HCPCS: 36415; 80069; 82570; 83970; 84156; 85027

== ENCOUNTER 2023-10-11 12:08 | Outpatient (CLI) | payer MEDICARE, SELFPAY ==
[2023-10-11 12:43] LABS: Hematocrit 38.5 % (42.0-52.0); Hemoglobin 12.4 g/dL (14.0-18.0); Mean Corpuscular HGB Conc 32.2 g/dl (32-36); Mean Corpuscular Hemoglobin 32.8 pg (26-34); Mean Corpuscular Volume 101.9 fl (80-100); Mean Platelet Volume 9.4 fl (7.4-10.4); Platelet Count Result 211 k/mm3 (150-375); Red Blood Count 3.78 M/mm3 (4.6-6.20); Red Cell Distribution Width 12.8 % (11.5-14.5); White Blood Count 4.6 K/mm3 (4.5-10.0)
[2023-10-11 13:20] LABS: Parathyroid Intact 41.6 pg/mL (7.5-53.5)
[2023-10-11 13:21] LABS: Anion Gap 4 mmol/L (8-16); Blood Urea Nitrogen 21 mg/dL (9-20); Calcium 9.3 mg/dL (8.4-10.2); Carbon Dioxide 30 mmol/L (22-30); Chloride 105 mmol/L (98-107); Estimated Glomerular Filt Rate 39; Glucose 142 mg/dL (65-110); Phosphorus 1.9 mg/dL (2.5-4.5); Potassium 4.1 mmol/L (3.4-5.0); Sodium 139 mmol/L (137-145)
[2023-10-11 13:38] LABS: Creatinine Urine 226.1 mg/dL; Total Protein Urine Random 13 mg/dL; Ur Ttl Prot Creatinine Ratio 0.06 mg/mg (0-0.20)
[2023-10-11 13:53] LABS: Vitamin D 25 Hydroxy 68.7 ng/mL
== END 2023-10-11 12:09 | disposition home or self-care (01) ==
PROVIDERS: PCP Family Medicine; Visit Provider Internal Medicine Nephrology
DX: E21.1 Secondary hyperparathyroidism, not elsewhere classified (principal); N18.32 Chronic kidney disease, stage 3b
CPT/HCPCS: 36415; 80069; 82306; 82570; 83970; 84156; 85027

== ENCOUNTER 2024-04-02 13:30 | Outpatient (CLI) | payer MEDICARE, SELFPAY ==
[2024-04-02 13:54] LABS: Hematocrit 37.1 % (42.0-52.0); Hemoglobin 12.3 g/dL (14.0-18.0); Mean Corpuscular HGB Conc 33.2 g/dl (32-36); Mean Corpuscular Hemoglobin 34.3 pg (26-34); Mean Corpuscular Volume 103.3 fl (80-100); Mean Platelet Volume 8.8 fl (7.4-10.4); Platelet Count Result 154 k/mm3 (150-375); Red Blood Count 3.59 M/mm3 (4.6-6.20); Red Cell Distribution Width 13.1 % (11.5-14.5); White Blood Count 5.8 K/mm3 (4.5-10.0)
[2024-04-02 14:04] LABS: Albumin Level 4.1 g/dL (3.5-5.1); Anion Gap 5 mmol/L (4-12); Blood Urea Nitrogen 26 mg/dL (9-20); Calcium 9.1 mg/dL (8.4-10.2); Carbon Dioxide 29 mmol/L (22-30); Chloride 102 mmol/L (98-107); Estimated Glomerular Filt Rate 34; Glucose 101 mg/dL (65-110); Phosphorus 3.3 mg/dL (2.5-4.5); Potassium 4.9 mmol/L (3.4-5.0); Sodium 136 mmol/L (137-145)
[2024-04-02 14:16] LABS: Parathyroid Intact 62.5 pg/mL (14.5-75.2)
[2024-04-02 14:49] LABS: Creatinine Urine 126.6 mg/dL; Total Protein Urine Random 6 mg/dL; Ur Ttl Prot Creatinine Ratio 0.05 mg/mg (0-0.20)
== END 2024-04-02 13:31 | disposition home or self-care (01) ==
LOC: ANHLAB 13:37
PROVIDERS: PCP Family Medicine; Visit Provider Internal Medicine Nephrology
DX: N18.32 Chronic kidney disease, stage 3b (principal)
CPT/HCPCS: 36415; 80069; 82570; 83970; 84156; 85027

== ENCOUNTER 2024-09-07 12:43 | Emergency (ER) | payer MEDICARE, SELFPAY ==
[2024-09-07] VITALS (45 sets, daily range): BP systolic 112–164; BP diastolic 47–85; PULSE 60–71; RESP 11–27; TEMP 36.5–37; O2SAT 91–99
--- NOTE | ~2024-09-07 | CT_ITS ---
EXAMINATION: CT brain wo con DATE: 09/07/2024 13:14 INDICATION: Confusion. Cerebrovascular accident. Speech deficit. TECHNIQUE: Computed tomography (CT) of the head was performed without intravenous contrast. The mA wa s adjusted according to patient size. Iterative reconstruction technique was employed. The dose-lengt h product was 605.33 mGy-cm. COMPARISON: Head CT 08/15/2019 FINDINGS: There are old infarcts in the cerebellum bilaterally. There is an old infarct in left tempo ral occipital region. There are scattered areas of low attenuation in the cerebral white matter. Ther e are old infarcts in the bilateral basal ganglia. There is no intracranial hemorrhage, acute infarct ion, or abnormal intracranial mass lesion. There is ex vacuo dilatation fragment of left lateral vent ricle. There are likely changes of ocular lens replacement surgeries. There is mild mucosal thickenin g in the paranasal sinuses. There is a small right mastoid effusion. IMPRESSION: 1. Old infarcts involving the cerebellum, left temporal occipital region, and bilateral basal ganglia . I called this result to Dr. Hernandez. Reviewed, dictated and finalized at location B. INSPECTION AND REPAIR MANAGER IMPRESSION: 1. Old infarcts involving the cerebellum, left temporal occipital region, and b ilateral basal ganglia. I called this result to Dr. Hernandez.
--- NOTE | ~2024-09-07 | XR_ITS ---
EXAMINATION: XR chest 1V portable DATE: 09/07/2024 13:15 INDICATION: Stroke. Confusion. TECHNIQUE: frontal view of the chest was obtained. COMPARISON: 03/30/2019 FINDINGS: The lungs are clear with no focal airspace opacities, pulmonary edema, pleural effusion or pneumothor ax. The cardiomediastinal silhouette is normal. Dual lead pacemaker seen with leads projecting over t he expected locations of the right atrium and right ventricle. IMPRESSION: 1. No acute cardiopulmonary disease. Reviewed, dictated and finalized at location A. COMPOUNDER
--- NOTE | 2024-09-07 12:56 | ECG_ITS ---
Test Date: 2024-09-07 13:37:58 Measurements Intervals [place] Rate: 70 P: 112 CA: 225 QRS: -52 QRSD: 134 T: 62 QT: 408 QTc: 442 Interpretive Statements ELECTRONIC ATRIAL PACEMAKER LEFT AXIS DEVIATION [QRS AXIS < -30] INTRAVENTRICULAR CONDUCTION DELAY [130+ ms QRS DURATION] SEPTAL MYOCARDIAL INFARCTION , PROBABLY OLD [40+ ms Q WAVE IN V1/V2] No previous ECG available for comparison Electronically Signed On 09-07-2024 23:55:18 OFFICE ADMINISTRATION INSTRUCTOR by Juvenal Degroot M.D.
[2024-09-07 12:58] LABS: Glucose Point of Care 96 mg/dl (65-105)
--- NOTE | 2024-09-07 13:01 | ED.NEUROSD ---
HPI - Neuro Symptoms/Deficit General Chief Complaint: Suspected CVA Stated Complaint: weakness and confusion Time Seen by Provider: 09/07/24 12:56 Source: patient and family Mode of arrival: wheelchair Limitations: clinical condition History of Present Illness HPI Narrative: Patient is an 84-year-old male with comprehension and verbal difficulties since 5:00 p.m. yesterday. He was trying to take his medication and dropped his medicine as well. He did not want go to the hospital last night but decided today to come to the hospital at 12:30 p.m.. Today, he is having comprehension and verbal expressive difficulties at this time. Patient required a wheelchair to come in but typically walks. He has had multiple strokes in the past. Patient has no teeth and has difficulty with verbalizing speech as well in the past per family. They say this is worsening of verbalization. He is on aspirin and Plavix. Onset (ago): day(s) (1) Timing confirmed by: family member Location: speech and altered History of same: Yes Severity: mild Quality: weak and constant Relieving factors: none Exacerbating factors: none Context: other ( He was noted by family at 5:00 p.m. yesterday to start having difficulties) On Anticoagulants: No Associated symptoms: confusion Treatments Prior to Arrival: Aspirin and other medication ( Plavix) Related Data Home Medications ?Medication ?Instructions ?Recorded ?Confirmed ?Last Taken ?Type aspirin 81 mg tablet,delayed 81 mg PO DAILY 08/06/19 05/10/24 11/04/20 History release (Adult Low Dose Aspirin) cholecalciferol (vitamin D3) 50 50 mcg PO DAILY 10/06/22 05/10/24 Unknown History mcg (2,000 unit) capsule pantoprazole 40 mg tablet,delayed 40 mg PO QAM 04/06/23 05/10/24 Unknown History release atorvastatin 40 mg tablet mg 09/07/24 Unknown History carvedilol 25 mg tablet mg BID 09/07/24 Unknown History clopidogrel 75 mg tablet mg 09/07/24 Unknown History folic acid 400 mcg tablet 400 mcg PO DAILY 09/07/24 Unknown History lisinopril 20 mg tablet mg 09/07/24 Unknown History Allergies Allergy/AdvReac Type Severity Reaction Status Date / Time Penicillins Allergy Severe Hives Verified 09/07/24 13:48 Review of Systems Review of Systems: All systems reviewed & are unremarkable except as noted in HPI and below Constitutional: Constitutional: Reports no additional constitutional complaints Eyes: Eyes: Reports no additional eye complaints ENT: Reports system reviewed and no additional complaints, except as documented Cardiovascular: Cardiovascular: Reports no additional cardiovascular complaints Respiratory: Respiratory: Reports no additional respiratory complaints Gastrointestinal: Gastrointestinal: Reports no additional gastrointestinal complaints Genitourinary: Genitourinary: Reports no additional male genitourinary complaints Musculoskeletal: Musculoskeletal: Reports no additional musculoskeletal complaints Integumentary/Breasts: Skin/Breast: Reports system reviewed and no additional complaints, except as docu Neurologic: Reports system reviewed and no additional complaints, except as documented Psychiatric: Psychiatric: Reports no additional psychiatric complaints Endocrine: Endocrine: Reports no additional endocrine complaints Hematologic/Lymphatic: Hematologic/Lymphatic: Reports no additional hematologic/lymphatic complaints Allergic/Immunologic: Allergic/Immunologic: Reports no additional allergic/immunologic complaints PMFSH Past Medical History Medical History Chronic kidney disease Azotemia (09/06/16) GI bleed (08/04/15) Lump of skin (11/29/16) Unspecified viral infection characterized by skin and mucous membrane lesions (03/01/17) Unspecified visual disturbance (10/07/14) Adenomatous colon polyp CVA (cerebral vascular accident) Hyperlipidemia Hypertension COPD (chronic obstructive pulmonary disease) CHF (congestive heart failure) ef 28% 03/2019 echo Surgical History Surgical History AICD (automatic cardioverter/defibrillator) present History of vasectomy Family History Family History Father , Cause of unknown. No problems noted. Mother , Cancer. Unknown type. No problems noted. Other Unknown family medical history Social History Social History Smoking packs per day: 0.5 Smoking cigarettes per day: 10.0 Years smoked: 50 Smoking pack-years: 25.00 Smoking status: Former smoker Tobacco type: cigarettes Second hand tobacco smoke exposure: No Smoking end date: 08/15/12 Alcohol intake: current Alcohol use details: TWO DRINKS PER MONTH Substance use: never Substance use type: does not use Do You Feel Safe in your Home?: Yes Lack of Transportation: No Lack of Food: Never True Current Housing: I Have Housing Concerned About Future Housing: No Difficulty Paying Gas/Electric Bills: No Difficulty Paying for Meds: No Currently Unemployed: No Education: Trade/Vocational Certificate Difficulty w/ Childcare or Family Care: No Living arrangements: alone Additional living arrangements comments: . 2 Children. Occupation/Education: retired Additional occupation/education comments: [employer] 4 years. [employer] 23 years. Gender identity (if verbalized by the patient): Male Spiritual care concerns: No Exam Const: General: cooperative, healthy appearing and comfortable HENMT: Head: normal to inspection, No palpable skull fracture present and normocephalic Eyes: General: appearance normal, both eyes and all related structures Visual Masterson: normal visual masterson by confrontation Alignment and Position: alignment normal Neck: Neck: normal visual inspection, full ROM and no lymphadenopathy Chest: Chest palpation & inspection: normal inspection of the chest, normal palpation of entire chest wall and abnormal inspection of the chest Resp: Effort & Inspection: normal respiratory effort, able to speak in complete sentences and normal respiratory pattern Auscultation: clear to auscultation bilaterally and bronchial breath sounds Cardio: Jugular venous distension: no JVD Palpation: normal PMI Rate: regular rate Rhythm: regular rhythm Heart sounds: S1 normal heart sound present and S2 normal heart sound present GI: Inspection: normal to inspection Auscultation: normal bowel sounds Back/Spine/Pelvis: Back: no CVA tenderness Thoracic/Lumbar Spine: thoracic and lumbar spine normal to inspection Pelvis: no pain with anterior-posterior compression Skin: General skin exam: normal color, no rashes or lesions noted and elasticity normal Neuro: General: No oriented to person, No oriented to place, No oriented to time, No patient oriented x3, No gait normal, moves all extremities, Normal light touch and pain sensation, no meningeal signs, no focal motor deficits and CN's II-XI intact bilaterally Cranial nerves: Yes CN's II-XII intact bilaterally Cognition (Neuro): abnormal cognition and abnormal cognition Speech: No normal speech and Abnormal speech present garbled and slurred Details: expressive aphasia, garbled, receptive aphasia and slurred Gait exam (Neuro): Assisted gait required Motor exam (neuro): 5/5 motor strength present throughout, Pronator motor function not present, No tremor noted, No asterixis, Motor fasciculations not present, Normal motor muscle tone present throughout and Motor abnormalities not present Sensory Exam: normal sensation; No Sensory deficit (Neuro) Other: fast exam was positive for speech abnormality Tilden coma Score was 15 NIH score is 5 with partial hemianopsia due to prior CVA Extrem: General: normal to inspection, full ROM and capillary refill normal Psych: Appearance: grossly normal, well kempt and not disheveled Mental Status: mental status grossly abnormal Speech and movement: Slurred speech present and Slowed speech present (Psych) Affect: normal affect Course Vital Signs Vital signs: Vital Signs Temperature 36.5 C 09/07/24 12:43 Pulse Rate 61 09/07/24 12:43 Respiratory Rate 20 09/07/24 12:43 Blood Pressure 143/76 H 09/07/24 12:43 Pulse Oximetry 95 09/07/24 12:43 Oxygen Delivery Room Air 09/07/24 12:43 Temperature 36.5 C 09/07/24 12:43 Pulse Rate 60 09/07/24 15:00 Respiratory Rate 18 09/07/24 15:00 Blood Pressure 142/77 H 09/07/24 14:46 Pulse Oximetry 97 09/07/24 15:00 Oxygen Delivery Room Air 09/07/24 15:00 MDM - Neuro Symptoms/Deficit MDM Narrative Medical decision making narrative: patient is an 84-year-old male with neurological speech changes since 5:00 a.m. yesterday and some history changes of weakness. We will do a neurological workup at this time. Patient likely needs admission for further CVA workup. examination appears to have expressive aphasia and confusion with comprehension difficulties. We will go ahead and transfer the patient for further neurological workup. He is already on aspirin and Plavix. He is on a statin. I will give him another aspirin at this time. We cannot do a CTA of the head due to the renal insufficiency. Lab Data Attestation: I reviewed the patient's lab results. Lab results narrative: chronic renal insufficiency at baseline 09/07/24 13:07 09/07/24 13:07 Labs: Lab Results 09/07/24 09/07/24 09/07/24 Range/Units 12:51 12:57 13:07 WBC 5.3 (4.8-10.8) K/mm3 RBC 3.55 L (4.70-6.10) M/mm3 Hgb 11.7 L (12.4-15.3) g/dL Hct 34.6 L (37.0-46.0) % MCV 97.5 (78.0-102.0) fL MCH 33.0 H (27.0-31.0) pg MCHC 33.8 (32-36) g/dL RDW 12.2 (11.6-14.4) % Plt Count 163 (150-420) K/mm3 MPV 8.7 (8.7-11.0) fl Immature Gran % (Auto) 0.4 H (0.0-0.0) % Neut % (Auto) 44.6 L (50.0-70.0) % Lymph % (Auto) 34.9 (18.0-42.0) % Nash % (Auto) 14.1 H (2.0-11.0) % Eos % (Auto) 5.4 (1.0-6.0) % Baso % (Auto) 0.6 (0.0-1.0) % Lymph # (Auto) 1.86 (1.10-4.50) K/mm3 Nash # (Auto) 0.75 (0.10-0.90) K/mm3 Eos # (Auto) 0.29 (0.02-0.50) K/mm3 Baso # (Auto) 0.03 (0.00-0.10) K/mm3 Abs Immat Gran (auto) 0.02 H (0.00-0.00) K/mm3 Absolute Neuts (auto) 2.38 (1.70-7.20) K/mm3 Absolute Nucleated RBC 0.00 (0.00-0.00) K/mm3 Nucleated RBC % 0.0 (0-0.0) % PT 10.6 (9.50-12.1) Seconds INR 1.0 APTT 27.3 (23.9-30.70) Sec Sodium 139 (136-145) mmol/L Potassium 3.9 (3.5-5.1) mmol/L Chloride 104 (98-108) mmol/L Carbon Dioxide 26 (21-32) mmol/L Anion Gap 9 (4-12) mmol/L BUN 19 H (7-18) mg/dL Creatinine 1.78 H (0.70-1.30) mg/dL Estim Creat Clear Calc 27 ml/min Estimated GFR 37 L (59 - ) Glucose 92 (70-99) mg/dL POC Capillary Glucose 96 (65-105) mg/dl Calculated Osmolality 290 (285-295) mOsm/kg Calcium 9.2 (8.5-10.1) mg/dL Total Bilirubin 0.9 (0.00-1.00) mg/dL AST 13 L (15-37) U/L ALT 14 L (16-63) U/L Alkaline Phosphatase 68 (46-116) U/L Troponin I 28.2 (0.00-60.4) ng/L Total Protein 6.8 (6.4-8.2) g/dL Albumin 3.5 (3.4-5.0) g/dL Urine Color Light yellow (Yellow) Urine Appearance Clear (Clear) Urine pH 6.0 (5.0-8.0) Ur Specific [place] 1.010 (1.010-1.020) Urine Protein Negative (Negative) Urine Glucose (UA) Negative (Negative) Urine Ketones Negative (Negative) Ur Blood (Man) Trace-intact H (Negative) Urine Nitrate Negative (Negative) Urine Bilirubin Negative (Negative) Urine Urobilinogen 0.2 (0.2-1.0) mg/dL Leukocyte Esterase Rfl Trace H (Negative) CADEN/UL Urine RBC None seen (0-2) /hpf Urine WBC None seen (0-3) /hpf Ur Squamous Epith Cells Rare (Few) /hpf Urine Bacteria Trace (None) /hpf Imaging Data Attestation: I personally reviewed and interpreted this imaging study as follows: Radiologist's impression: CT scan of the head is negative for acute process and shows old chronic changes of CVAs chest x-ray is negative for acute process ECG Data EKG #1: Attestation: I personally reviewed and interpreted this ECG as follows: ECG completion date: 09/07/24 ECG completion time: 14:04 EKG Interpretation: normal rate, sinus rhythm, no ectopy, non-specific ST changes, widened QRS ( IVCD), normal QT and left axis Discharge Plan Discharge Clinical Impression: Acute CVA (cerebrovascular accident), CRI (chronic renal insufficiency), Expressive aphasia, Receptive aphasia Patient Disposition: Acute Care Hospital Condition: Stable Patient Language: Japanese Prescriptions: No Action atorvastatin 40 mg tablet carvedilol 25 mg tablet BID lisinopril 20 mg tablet clopidogrel 75 mg tablet folic acid 400 mcg tablet 400 mcg PO DAILY pantoprazole 40 mg tablet,delayed release (DR/EC) 40 mg PO QAM cholecalciferol (vitamin D3) 50 mcg (2,000 unit) capsule 50 mcg PO DAILY aspirin [Adult Low Dose Aspirin] 81 mg tablet,delayed release (DR/EC) 81 mg PO DAILY docusate sodium [Colace] 100 mg capsule 100 mg PO BID Qty: 30 0RF Follow-up/Referrals: Erasmo,Moises Del Castillo MD [Primary Care Provider] - Time of Disposition: 15:05
[2024-09-07 13:12] LABS: Basophils Absolute Auto 0.03 K/mm3 (0.00-0.10); Basophils Percent Auto 0.6 % (0.0-1.0); Eosinophils Absolute Auto 0.29 K/mm3 (0.02-0.50); Eosinophils Percent Auto 5.4 % (1.0-6.0); Hematocrit 34.6 % (37.0-46.0); Hemoglobin 11.7 g/dL (12.4-15.3); Immature Granulocyte Absolute 0.02 K/mm3 (0.00-0.00); Immature Granulocyte Percent A 0.4 % (0.0-0.0); Lymphocytes Absolute Auto 1.86 K/mm3 (1.10-4.50); Lymphocytes Percent Auto 34.9 % (18.0-42.0); Mean Corpuscular HGB Conc 33.8 g/dL (32-36); Mean Corpuscular Volume 97.5 fL (78.0-102.0); Mean Platelet Volume 8.7 fl (8.7-11.0); Monocytes Absolute Auto 0.75 K/mm3 (0.10-0.90); Monocytes Percent Auto 14.1 % (2.0-11.0); Neutrophils Absolute Auto 2.38 K/mm3 (1.70-7.20); Neutrophils Percent Auto 44.6 % (50.0-70.0); Platelet Count Result 163 K/mm3 (150-420); Red Blood Count 3.55 M/mm3 (4.70-6.10); Red Cell Distribution Width 12.2 % (11.6-14.4); White Blood Count 5.3 K/mm3 (4.8-10.8)
[2024-09-07 13:27] LABS: Partial Thromboplastin Time 27.3 Sec (23.9-30.70); Prothrombin Time 10.6 Seconds (9.50-12.1)
[2024-09-07 13:31] LABS: Alanine Aminotransferase 14 U/L (16-63); Albumin Level 3.5 g/dL (3.4-5.0); Alkaline Phosphatase 68 U/L (46-116); Anion Gap 9 mmol/L (4-12); Aspartate Amino Transferase 13 U/L (15-37); Bilirubin,Total 0.9 mg/dL (0.00-1.00); Blood Urea Nitrogen 19 mg/dL (7-18); Calcium 9.2 mg/dL (8.5-10.1); Carbon Dioxide 26 mmol/L (21-32); Chloride 104 mmol/L (98-108); Estimated CRCL calculation 27 ml/min; Estimated Glomerular Filt Rate 37; Glucose 92 mg/dL (70-99); Osmolality Calculated 290 mOsm/kg (285-295); Potassium 3.9 mmol/L (3.5-5.1); Sodium 139 mmol/L (136-145); Troponin I 28.2 ng/L (0.00-60.4)
[2024-09-07 13:40] LABS: Add Urine Microscopic? YES; Appearance Urine Clear (Clear); Bilirubin Urine Negative (Negative); Blood Urine Trace-intact (Negative); Color Urine Light Yellow (Yellow); Glucose Urine UA Negative (Negative); Ketones Urine Negative (Negative); Leukocyte Esterase Ur Trace LEU/UL (Negative); Nitrate Urine Negative (Negative); Protein Urine Negative (Negative); Urobilinogen Urine 0.2 mg/dL (0.2-1.0)
[2024-09-07 13:43] LABS: Total Protein 6.8 g/dL (6.4-8.2)
[2024-09-07 13:46] LABS: Bacteria Urine Trace /hpf; RBC Urine None seen /hpf (0-2); Squamous Epithelial Cell Urine Rare /hpf (Few); WBC Urine None seen /hpf (0-3)
[2024-09-07] MEDS: ASPIRIN 81 MG ENTERIC TABLET PO (15:27)
--- NOTE | 2024-09-07 15:33 | PC.NURSE ---
dr jenkins in with pt and daughter, discussing transfer. daughter wants to wait here for bed at [facility]. does not want to call other hospitals for placement at this time.
--- NOTE | 2024-09-07 18:40 | PC.NURSE ---
ASSUMED CARE. REPORT RECEIVED FROM MILLICENT FORREST.
--- NOTE | 2024-09-07 18:44 | PC.NURSE ---
report to margie carlos
--- NOTE | 2024-09-07 19:15 | PC.NURSE ---
PATIENT IS RESTING ON STRETCHER. WATCHING TV. PATIENT IS AWARE THAT HE IS NPO UNTIL SWALLOW STUDY/SPEECH EVAL CAN BE COMPLETED. DENIES ANY NEEDS AT THIS TIME. CALL LIGHT IS IN REACH
--- NOTE | 2024-09-07 20:14 | PC.NURSE ---
PATIENT STANDING AT THE SIDE OF THE BED USING THE URINAL
--- NOTE | 2024-09-07 20:37 | PC.NURSE ---
FAMILY MEMBERS AT THE BEDSIDE
--- NOTE | 2024-09-07 21:15 | PC.NURSE ---
FAMILY WANTS TO GIVE PATIENT SOMETHING TO DRINK. INFORMED THEM THAT PATIENT IS CURRENTLY NPO UNTIL SWALLOW EVAL/SPEECH EVAL COULD BE DONE TOMORROW. ENCOURAGED FAMILY NOT TO GIVE PATIENT ANYTHING TO EAT OR DRINK
--- NOTE | 2024-09-07 21:22 | PC.NURSE ---
FAMILY HAS GONE HOME. PATIENT IS RESTING ON STRETCHER. WILL PLACE ON HOSPITAL BED WHEN AVAILABLE
--- NOTE | 2024-09-07 22:06 | PC.NURSE ---
PATIENT MOVED OVER TO HOSPITAL BED BY DELICIA TIAN. WARM BLANKET AND EXTRA PILLOW GIVEN. CALL LIGHT IN REACH
[2024-09-08] VITALS: BP 122/58; PULSE 66; RESP 16; O2SAT 94
--- NOTE | 2024-09-08 00:05 | PC.NURSE ---
RESTING QUIETLY ON HOSPITAL BED. RESP EVEN AND UNLABORED. CALL LIGHT IN REACH.
--- NOTE | 2024-09-08 00:40 | PC.NURSE ---
PATIENT UPDATED THAT HE IS TO BE TRANSFERRED TO [facility]. ROOM 862. PATIENT VERBALIZED UNDERSTANDING
[2024-09-08 01:08] VITALS: BP 124/62; PULSE 67; RESP 16; O2SAT 95
== END 2024-09-08 01:08 | disposition short-term general hospital (02) ==
PROVIDERS: Emergency Provider Emergency Medicine; PCP Family Medicine
DX: I63.9 Cerebral infarction, unspecified (principal); R47.01 Aphasia; I12.9 Hypertensive chronic kidney disease with stage 1 through stage 4 chronic kidney disease, or unspecified chronic kidney disease; N18.9 Chronic kidney disease, unspecified; J44.9 Chronic obstructive pulmonary disease, unspecified; Z79.82 Long term (current) use of aspirin; Z87.891 Personal history of nicotine dependence
CPT/HCPCS: 36415; 70450; 71045; 80053; 81001; 82948; 84484; 85025; 85610; 85730; 93005; 99285; A9270

== ENCOUNTER 2024-11-07 13:46 | Outpatient (CLI) | payer MEDICARE, SELFPAY ==
[2024-11-07 14:30] LABS: Hematocrit 34.8 % (42.0-52.0); Hemoglobin 11.7 g/dL (14.0-18.0); Mean Corpuscular HGB Conc 33.6 g/dl (32-36); Mean Corpuscular Hemoglobin 33.7 pg (26-34); Mean Corpuscular Volume 100.3 fl (80-100); Mean Platelet Volume 9.4 fl (7.4-10.4); Platelet Count Result 149 k/mm3 (150-375); Red Blood Count 3.47 M/mm3 (4.6-6.20); Red Cell Distribution Width 12.8 % (11.5-14.5); White Blood Count 5.8 K/mm3 (4.5-10.0)
[2024-11-07 14:44] LABS: Anion Gap 9 mmol/L (4-12); Blood Urea Nitrogen 20 mg/dL (9-20); Calcium 9.1 mg/dL (8.4-10.2); Carbon Dioxide 26 mmol/L (22-30); Chloride 106 mmol/L (98-107); Estimated Glomerular Filt Rate 41; Glucose 100 mg/dL (65-110); Phosphorus 3.7 mg/dL (2.5-4.5); Potassium 4.1 mmol/L (3.4-5.0); Sodium 141 mmol/L (137-145)
--- OUTSIDE RECORDS SUMMARY | 2024-11-07 14:52 | XMS_ITS | Clinical Summary ---
Author Organization [facility] Address [address] [place] [address] Phone Care Team Providers Care Lockstitch Tunnel Elastic Operator Name Role Phone Juan Manuel Pratt DO Unavailable [phone] Moises Zimmerman MD Primary Care Provider [phone] Allergies Active Allergy Reactions Criticality Noted Date Comments Penicillins Anaphylaxis 10/07/2015 Medications amLODIPine (NORVASC) 2.5 MG Tablet Take 2.5 mg by mouth daily. Active atorvastatin (LIPITOR) 40 MG Tablet Take 40 mg by mouth daily. Active finasteride (PROSCAR) 5 MG Tablet Take 5 mg by mouth daily. Active polyethylene glycol (MIRALAX) Powder Mix the entire bottle with 64 oz of a clear liquid. Use as directed by the office for colonoscopy prep. 255 g 0 6 Active aspirin EC 81 MG Tablet Delayed Response Take 81 mg by mouth daily. Active lisinopril (PRINIVIL, ZESTRIL) 10 MG Tablet Take 10 mg by mouth daily. Active clopidogrel (PLAVIX) 75 MG Tablet Take 75 mg by mouth daily. Active raNITIdine (ZANTAC) 300 MG Tablet TAKE HALF OF A TABLET BY MOUTH TWICE A DAY 60 Tab 6 9 Active raNITIdine (ZANTAC) 300 MG Tablet Take 0.5 Tabs by mouth 2 times daily. 60 Tab 6 9 Active Family History * Patient is adopted Relation Name Status Comments Father Mother Social History Tobacco Use Types Packs/Day Years Used Date Smoking Tobacco: Former Cigarettes 1 60 1 - 05/17/2015 Smokeless Tobacco: Former Quit: 10/10/2014 Alcohol Use Standard Drinks/Week Comments No 0 (1 standard drink = 0.6 oz pur e alcohol) Sex and Gender Information Value Date Recorded Sex Assigned at Not on file Legal Sex Male 7:36 PM CDT Gender Identity Not on file Sexual Orientation Not on file Occupation Industry Job Start Date Job End Date retired R[employer] Oncology Not on file Not on file Not on file Last Filed Vital Signs Vital Sign Reading Time Taken Comments Blood Pressure 140/80 05/17/2017 3:49 PM CDT Pulse 62 05/17/2017 3:49 PM CDT Temperature 35.8 C (96.5 F) 05/17/2017 3:49 PM CDT Respiratory Rate 16 10/10/2015 10:20 AM [employer] Oxygen Saturation 93% 05/17/2017 3:49 PM CDT Inhaled Oxygen Concentration - - Weight 73.9 kg (163 lb) 05/17/2017 3:49 PM CDT Height 170.2 cm (5' 7 ) 05/17/2017 3:49 PM CDT Body Mass Index 25.53 05/17/2017 3:49 PM CDT Plan of Treatment Health Maintenance Due Date Last Done Comments Hepatitis C Virus (HCV) Screening 1940 TdaP Immunization 1940 Pneumococcal Immunization (5 0+ years) (1 of 1 - PCV) 1991 Zoster Immunization (1 of 2) 1991 Respiratory Syncytial Virus (RSV) Immunization (Adult) (1 - 1-dose 75+ series) 2016 Influenza Immunization (#1) 2024 SARS-COV-2 Immunization ( - 2023-25 season) 2024 Hepatitis B Immunization Aged Out No longer eligible based on patient's age to complete this topic Meningococcal Immunization (ACWY) Aged Out No longer eligible based on patient's age to complete this topic Rotavirus Immunization Aged Out No lo nger eligible based on patient's age to complete this topic Insurance MEDICARE C [employer] Care Teams Lockstitch Tunnel Elastic Operator Relationship Specialty [place] [address] [place] [address] PCP - General Family Medicine 09/04/20 Juan Manuel Pratt DO Gastroenterology 08/22/17
--- OUTSIDE RECORDS SUMMARY | 2024-11-07 14:52 | XMS_ITS | Encounter Summary ---
Author Organization [facility] Address [address] [place] [address] Care Team Providers Care Rn Practitioner Name Role Phone Moises Torres MD Unavailable Unavailabl Laureano Telles MD Unavailable [phone] Moises Zimmerman MD Primary Care Provider [phone] Natanael Jensen MD Unavailable [phone] Taylor Stewart RN Unavailable [phone] Jenna Hess RN Unavailable [phone] Encounter Details Date Type Department Care Team (Late st Contact Info) Description 02/09/2023 StreamLine Callhart Message Formerly [facility], [facility] - [facility] [address] [place] [address] Samantha [facility] Provider Air Quality Message Social History Tobacco Use Types Packs/Day Years Used Date Smoking Tobacco: Former Cigarettes Q uit: 2013 Smokeless Tobacco: Never Comments:quit tobacco 2013 Alcohol Use Standard Drinks/Week Comments Yes 0 (1 standard drink = 0.6 oz pur e alcohol) 4-5 cans of beer per month Humiliation, Afraid, Rape, and Kick questionnair e Answer Date Recorded Within the last year, have y ou been afraid of your partner or ex-partner? No 05/14/2022 Within the last year, have y ou been humiliated or emotionally abused in other ways by your partner or ex-partner? No Within the last year, have y ou been kicked, hit, slapped, or otherwise physically hurt by your partner or ex-partner? No 05/14/2022 Within the last year, have y ou been raped or forced to have any kind of sexual activity by your partner or ex-partner? No 05/14/2022 Social Connection and Isolat ion Panel [NHANES] Answer Date Recorded In a typical week, how many times do you talk on the phone with family, friends, or neighbors? More than three times a week 05/14/2022 How often do you get togethe r with friends or relatives? Twice a week 05/14/2022 How often do you attend chur or rastafari services? Never 05/14/2022 Do you belong to any clubs o r organizations such as islam groups, unions, fraternal or athletic groups, or school groups? No 05/14/2022 How often do you attend meet ings of the clubs or organizations you belong to? Never 05/14/2022 Are you , , di vorced, , never , or living with a partner? 05/14/2022 AUDIT-C Answer Date Recorded Q1: How often do you have a drink containing alc ohol? Monthly or less 05/14/2022 Q2: How many drinks containi ng alcohol do you have on a typical day when you are drinking? 1 or 2 05/14/2022 Q3: How often do you have si x or more drinks on one occasion? Less than monthly 05/14/2022 Overall Financial Resource Strain (CARDIA) Answe r Date Recorded How hard is it for you to pa y for the very basics like food, housing, medical care, and heating? Not hard at all 05/14/2022 PHQ-2 Answer Date Recorded Patient Health Questionnaire-2 Score 0 09/30/2022 [facility] of Occupat ional Health - Occupational Stress Questionnaire Answer Date Recorded Do you feel stress - tense, restless, nervous, or anxious, or unable to sleep at night because your mind is troubled all the time - these days? Only a little 05/14/2022 Exercise Vital Sign Answer Date Recorde d On average, how many days pe r week do you engage in moderate to strenuous exercise (like a brisk walk)? 2 days 05/14/2022 On average, how many minutes do you engage in exercise at this level? 20 min 05/14/2022 Hunger Vital Sign Answer Date Recorded Within the past 12 months, y ou worried that your food would run out before you got the money to buy more. Never true 05/14/20 22 Within the past 12 months, t he food you bought just didn't last and you didn't have money to get more. Never true 05/14/2022 PRAPARE - Transportation Answer Date Re corded In the past 12 months, has l ack of transportation kept you from medical appointments or from getting medications? No 04/17 In the past 12 months, has l ack of transportation kept you from meetings, work, or from getting things needed for daily living? No 05/14/2022 Housing Stability Vital Sign Answer Adan e Recorded In the last 12 months, was t here a time when you were not able to pay the mortgage or rent on time? No 05/14/2022 In the last 12 months, how many places have you lived? 1 05/14/2022 In the last 12 months, was t here a time when you did not have a steady place to sleep or slept in a fci (including now)? No 05/14/2022 Sex and Gender Information Value Date Recorded Sex Assigned at Male 12/21/2019 11:05 AM CDT Legal Sex Male 9:59 PM CDT Gender Identity Male 12/21/2019 11:05 AM CDT Sexual Orientation Straight 12/21/2019 11 :05 AM CDT Occupation Industry Job Start Date Job End Date retired Not on file Not on file Not on file COVID-19 Exposure Response Date Recorded In the last 10 days, have yo u been in contact with someone who was confirmed or suspected to have Coronavirus/COVID-19? No / Unsure 01/20/2023 2:03 PM CDT documented as of this encounter Plan of Treatment Upcoming Encounters Date Type Department Care Team (Late st Contact Info) Description 01/21/2025 8:35 AM CDT Allied Health/[facility] [address] [address] Karena Taveras MD [facility]. [place] [address] [place], [place] [address] 04/19/2025 10:40 AM CDT Office Visit [facility] Mult[facility]ty Care - [facility] [address] [facility], [address] [place] [address] Blanca Meeks MD [address] [place] [address] 04/22/2025 10:00 AM CDT Office Visit [facility] Family & Internal Medicine - [place] [address] [place] [address] Moises Zimmerman MD [address] [place] [id number] 05/13/2025 1:00 PM CDT Office Visit [facility] [address] [place] [phone] Laureano Simpson MD [facility]. [place] [address] [place] [address] 06/24/2025 10:45 AM RV DETAILER Office Visit [facility] THREE [facility], [address] [place], [place] [address] Gosia Portillo PA-C Three [facility] [address], [place] [address] Karena Taveras MD [facility]. [facility] [address] [place], [place] [address] documented as of this encounter Visit Diagnoses Not on filedocumented in this encounter Additional Health Concerns Infection Onset Date Last Indicated Resolved Time COVID-19 Rule Out 02/07/2024 02/07/2024 02/07/2024 11:40 AM CDT COVID-19 Rule Out 02/07/2024 02/07/2024 02/07/2024 11:54 AM CDT COVID-19 Confirmed 02/07/2024 02/07/2024 12:33 AM CDT COVID-19 Rule Out 04/12/2024 04/12/2024 04/12/2024 2:29 PM CDT COVID-19 Rule Out 08/07/2024 08/07/2024 08/09/2024 11:38 AM RV DETAILER Assessment Noted Time PHQ-9 Depression Total Score: 3 10/24/19 22 11:51 AM RV DETAILER documented as of this encounter Care Teams Rn Practitioner Relationship Specialty [place] [address] [place] [address] PCP - General FAMILY PRACTICE 12/21/19 Moises Torres MD [place] Topographical Drafter CARDIOVASCULAR DISEASE 05/14/19 06/05/23 Laureano Simpson MD Three [address] [address] Consulting Physician CARDIOVASCULAR DISEASE 12/17/19 Natanael Jensen MD [address] [facility] [address] [place] [address] Referring Physician NEPHROLOGY 06/06/23 Taylor Stewart RN [address] [place], [place] [address] Garage Manager (Ambulatory) REGISTERED NURSE 09/10/24 09/10/24 Jenna Hess RN [address] [place] [address] Garage Manager (Ambulatory) REGISTERED NURSE 09/10/24 2 documented as of this encounter
--- OUTSIDE RECORDS SUMMARY | 2024-11-07 14:52 | XMS_ITS | Encounter Summary ---
Author Organization [facility] Address [facility] [place] [address] Care Team Providers Care Pediatric Pathologist Name Role Phone Moises Torres MD Unavailable Unavailabl Laureano Telles MD Unavailable [phone] Moises Zimmerman MD Primary Care Provider [phone] Natanael Jensen MD Unavailable [phone] Taylor Stewart RN Unavailable [phone] Jenna Hess RN Unavailable [phone] Encounter Details Date Type Department Care Team (Late st Contact Info) Description 12/22/2022 Prep for Procedure [facility] [address] [place] [id number] [place] [address] [facility] [address] [place] [address] Social History Tobacco Use Types Packs/Day Years [...] How often do you attend chur or worship services? Never 05/14/2022 Do you belong to any clubs o r organizations such as mandaeism groups, unions, fraternal or athletic groups, or [...] Recorded Patient Health Questionnaire-2 Score 0 09/30/2022 [facility] of Occupat ional Health - Occupational Stress [...] place to sleep or slept in a long term (including now)? No 05/14/2022 Sex and Gender [...] suspected to have Coronavirus/COVID-19? No / Unsure 12/24/2022 12:59 PM CDT documented as of this encounter Plan of Treatment Upcoming Encounters Date Type Department Care Team (Late st Contact Info) Description 01/21/2025 8:35 AM CDT Allied Health/Nurse Visit [facility] THREE [facility], [address] [address] [place] [address] Karena Taveras MD [facility]. [address] [address] [place] [address] 04/19/2025 10:40 AM CDT Office Visit [facility]ialty Care - [facility] [address] [facility], [address] [place] [address] Blanca Meeks MD [address] [place] [address] 04/22/2025 10:00 AM CDT Office Visit [facility] Family & Internal Medicine - [place] [address] [place] [address] [place] [address] [place], [place] [phone] 05/13/2025 1:00 PM CDT Office Visit [facility] [address] [place] [phone] Laureano Simpson MD [facility]. [address] [address] [place] [address] 06/24/2025 10:45 AM SURVEY TECHNICIAN Office Visit [facility] THREE [facility], [address] [place], [place] [address] Gosia Portillo PA-C [facility] [address] [place] [address] Karena Taveras MD Three [facility]. [place] [address] [place] [address] documented as of this encounter Results * ECG 12-Lead (12/24/2022 1:25 PM CDT) 12/24/2022 1:25 PM CDT Narrative [facility] RAD - 12/25/2022 9:[address] [facility] Test Date: 2022-12-24 Pat Name: [facility] Department: Room: Gender: Male Supervising Editor News Reel: : 1940 Requested By: KEYSHAWN PALACIO Order Number: [id number] Reading MD: Moises Zimmerman Measurements Intervals [place] Rate: 60 P: 102 GA: 225 QRS: -10 QRSD: 134 T: 79 QT: 428 QTc: 428 Interpretive Statements ELECTRONIC ATRIAL PACEMAKER INTRAVENTRICULAR CONDUCTION DELAY [130+ ms QRS DURATION] Compared to ECG 10/20/2021 13:22:49 Intraventricular conduction delay now present Indeterminate axis no longer present Myocardial infarct finding no longer present Procedure Note Moises Zimmerman MD - 12/25/2022 [facility] Test Date: 2022-12-24 Pat Name: [facility] Department: Room: Gender: Male Supervising Editor News Reel: : 1940 Requested By: KEYSHAWN PALACIO Order Number: [id number] Reading : Moises Zimmerman Measurements Intervals [place] Rate: 60 P: 102 GA: 225 QRS: -10 QRSD: 134 T: 79 QT: 428 QTc: 428 Interpretive Statements ELECTRONIC ATRIAL PACEMAKER INTRAVENTRICULAR CONDUCTION DELAY [130+ ms QRS DURATION] Compared to ECG 10/20/2021 13:22:49 Intraventricular conduction delay now present Indeterminate axis no longer present Myocardial infarct finding no longer present us Keyshawn Palacio MD ECG ORDERABLES Final Result Performing Organization Address City/State/[facility] Co de Phone Number [facility] RAD * MRSA SCREENING (12/24/2022 1:10 PM CDT) SPEC DESCRIPTION NASAL 12/24/2022 1:08 PM CDT [facility] SPECIAL REQUESTS NO SPECIAL REQUEST 12/24/2022 1:08 PM CDT [facility] CULTURE RESULT NO METHICILLIN RESISTANT STAPHYLOCOCCUS AUREUS ISOLATED 12/25/2022 4:21 PM CDT [facility] SPECIMEN FROM INTERNAL NOSE / Unknown 12/24/2022 1:10 PM CDT 12/24/2022 1:13 PM CDT us Keyshawn Palacio MD MICROBIOLOGY - GENERAL ORDERABLE S Final Result Performing Organization Address [facility] Co de Phone Number [facility] [address] [place] [address], [place] [phone] documented in this encounter Visit Diagnoses Diagnosis Preop testing- Primary Preoperative examination, unspecified Preop testing Preoperative examination, unspecified documented in this encounter Additional Health Concerns Infection Onset Date Last Indicated Resolved Time COVID-19 Rule Out 02/07/2024 02/07/2024 02/07/2024 11:40 AM CDT COVID-19 Rule Out 02/07/2024 02/07/2024 02/07/2024 11:54 AM CDT COVID-19 Confirmed 02/07/2024 02/07/2024 12:33 AM CDT COVID-19 Rule Out 04/12/2024 04/12/2024 04/12/2024 2:29 PM CDT COVID-19 Rule Out 08/07/2024 08/07/2024 08/09/2024 11:38 AM SURVEY TECHNICIAN Assessment Noted Time PHQ-9 Depression Total Score: 3 10/24/19 22 11:51 AM SURVEY TECHNICIAN documented as of this encounter Care Teams Pediatric Pathologist Relationship Specialty [place] [address] [place] [address] PCP - General FAMILY PRACTICE 12/21/19 Moises Torres MD [place] Wrecking Supervisor CARDIOVASCULAR DISEASE 05/14/19 06/05/23 Laureano Simpson MD Three [facility]. [address] [address] Consulting Physician CARDIOVASCULAR DISEASE 12/17/19 Natanael Jensen MD [address] [place] [address] Referring Physician NEPHROLOGY 06/06/23 Taylor Stewart RN [address] [place], [place] [phone] Tool And Fixture Repairer (Ambulatory) REGISTERED NURSE 09/10/24 09/10/24 Jenna Hess RN [address] [place], [place] [phone] Tool And Fixture Repairer (Ambulatory) REGISTERED NURSE 09/10/24 09/26/24 documented as of this encounter
--- OUTSIDE RECORDS SUMMARY | 2024-11-07 14:52 | XMS_ITS | Encounter Summary ---
Author Organization [facility] Address [facility] [place] [address] Care Team Providers Care Marine Driller Name Role Phone Moises Torres MD Unavailable [facility] Laureano Telles MD Unavailable [phone] Moises Zimmerman MD Primary Care Provider [phone] Melody Gibbs RN Unavailable [phone] Natanael Jensen MD Unavailable [phone] Taylor Stewart RN Unavailable [phone] Jenna Hess RN Unavailable [phone] Encounter Details Date Type Department Care Team (Late st Contact Info) Description 01/30/2021 Abstract [facility] [address] Sara Best MA Social History Tobacco Use Types Packs/Day Years Used Date Smoking Tobacco: Former Cigarettes Q uit: 2013 Smokeless Tobacco: Never Alcohol Use Standard Drinks/Week Comments Yes 0 (1 standard drink = 0.6 oz pur e alcohol) 4-5 cans of beer per month AUDIT-C Answer Date Recorded Frequency of Alcohol Consumption Monthly or less 12/17/2019 Average Number of Drinks Not on file 020 Frequency of Binge Drinking Not on file 11/2019 PHQ-2 Answer Date Recorded PHQ-2 Score 0 12/21/2019 Sex and Gender Information Value Date Recorded Sex Assigned at Male 12/21/2019 11:05 AM CDT Legal Sex Male 9:59 PM CDT Gender Identity Male 12/21/2019 11:05 AM CDT Sexual Orientation Straight 12/21/2019 11 :05 AM CDT Occupation Industry Job Start Date Job End Date retired Not on file Not on file Not on file COVID-19 Exposure Response Date Recorded In the last month, have you been in contact with someone who was confirmed or suspected to have Coronavirus / COVID-19? No / Unsure 01/29/2021 12:26 PM CDT documented as of this encounter Plan of Treatment Upcoming Encounters Date Type Department Care Team (Late st Contact Info) Description 01/21/2025 8:35 AM CDT Allied Health/Nurse [facility] THREE [facility], [address] [address] [place] [address] Karena Taveras MD [facility]. [facility] [address] [place] [address] 04/19/2025 10:40 AM CDT Office Visit [facility] Medical Group Multispecialty Care - [facility] [address] [facility], [address] [place] [phone] Blanca Meeks MD [address] [place] [address] 04/22/2025 10:00 AM CDT Office Visit [facility] Medical Group Family & Internal Medicine - [place] [address] [place] [address] [place] [address] [place] [address] 05/13/2025 1:00 PM CDT Office Visit [facility] [address] [place] [address] Laureano Simpson MD Three [facility]. [address] [place] [address] 06/24/2025 10:45 AM EDGE PLUGGER Office Visit [facility] THREE [facility], [address] [place], [place] [address] Gosia Portillo PA-C Three [facility] [address] [place], [place] [phone] Karena Taveras MD Three [facility]. [place] [address] [place], [place] [id number] documented as of this encounter Procedures Procedure Name Priority Date/Time Associated Diagnosis Comments CBC (OUTSIDE LAB) Routine 01/14/2021 BASIC METABOLIC PANEL Routine 01/14/2021 VITAMIN D, 25 OH Routine 01/14/2021 documented in this encounter Results * (ABNORMAL) BASIC METABOLIC PANEL (01/14/2021) SODIUM S/P/B 145 POTASSIUM S/P/B 4.1 CO2 30 CHLORIDE S/P/B 108 GLUCOSE 125 mg/dL CALCIUM S/P/B 9.1 BUN 23 CREATININE S/P/B 1.70(A) 0.7 - 1.3 EGFR NON-AFR. AMER. 39 <=90 ALBUMIN S/P/B 3.9 3.5 - 5.0 PHOSPHORUS 3.3 01/14/2021 us Doc [facility] Abstract LABORATORY Final Result * VITAMIN D, 25 OH (01/14/2021) VITAMIN D 25 HYDROXY S/P/B 95.6 01/14/2021 us Doc [facility] Abstract LABORATORY Final Result * CBC (OUTSIDE LAB) (01/14/2021) WBC 5.3 HGB 11.5 HCT 35.8 PLT 150 01/14/2021 us Doc [facility] Abstract LAB-OUTSIDE/ABSTRACTED Final Result documented in this encounter Visit Diagnoses Not on filedocumented in this encounter Additional Health Concerns Infection Onset Date Last Indicated Resolved Time COVID-19 Rule Out 09/16/2022 09/16/2022 09/16/2022 2:28 PM EDGE PLUGGER COVID-19 Rule Out 02/07/2024 02/07/2024 02/07/2024 11:40 AM CDT COVID-19 Rule Out 02/07/2024 02/07/2024 02/07/2024 11:54 AM CDT COVID-19 Confirmed 02/07/2024 02/07/2024 12:33 AM CDT COVID-19 Rule Out 04/12/2024 04/12/2024 04/12/2024 2:29 PM CDT COVID-19 Rule Out 08/07/2024 08/07/2024 08/09/2024 11:38 AM EDGE PLUGGER documented as of this encounter Care Teams Marine Driller Relationship Specialty [place] [address] [place] [address] PCP - General FAMILY PRACTICE 12/21/19 Moises Torres MD [place] Ladies Suit Operator CARDIOVASCULAR DISEASE 05/14/19 06/05/23 Laureano Simpson MD [facility]. [address] [address] Consulting Physician CARDIOVASCULAR DISEASE 12/17/19 Melody Gibbs RN [address] [place] [address] Plastics Fabricator And Assembler (Ambulatory) REGISTERED NURSE 04/17/21 11/09/22 Natanael Jensen MD [address] [place], [place] [phone] Referring Physician NEPHROLOGY 06/06/23 Taylor Stewart RN [address] [place] [address] Plastics Fabricator And Assembler (Ambulatory) REGISTERED NURSE 09/10/24 09/10/24 Jenna Hess RN [address] [place] [address] Plastics Fabricator And Assembler (Ambulatory) REGISTERED NURSE 09/10/24 09/26/24 documented as of this encounter
--- OUTSIDE RECORDS SUMMARY | 2024-11-07 14:53 | XMS_ITS | Encounter Summary ---
Author Organization [facility] Address [facility] [place] [address] Care Team Providers Care Industrial Registered Nurse Name Role Phone Moises Torres MD Unavailable UnavailLaureano Gunderson MD Unavailable [phone] Moises Zimmerman MD Primary Care Provider [phone] Melody Gibbs RN Unavailable [phone] Natanael Jensen MD Unavailable [phone] Taylor Stewart RN Unavailable [phone] Jenna Hess RN Unavailable [phone] Encounter Details Date Type Department Care Team (Late st Contact Info) Description 04/07/2020 Pre-Procedure Call [facility] Senior Sql Database Developer [address] [facility] [place], [place] [phone] Karena Taveras MD Three [facility]. [facility] [address] [place] [address] Social History Tobacco Use Types Packs/Day Years [...] have Coronavirus / COVID-19? No / Unsure 03/17/2020 1:10 PM CDT documented as of this encounter Plan of Treatment Upcoming Encounters Date Type Department Care Team (Late st Contact Info) Description 01/21/2025 8:35 AM CDT Allied Health/Nurse Visit [facility] [address] [facility], [facility] [address] [place] [address] Karena Taveras MD [facility]. [facility] [address] [place] [address] 04/19/2025 10:40 AM CDT Office Visit [facility] Medical [facility] Multispecialty Care - [address], [address] [place] [phone] Blanca Meeks MD [address] [place] [address] 04/22/2025 10:00 AM CDT Office Visit [facility] Medical Group Family & Internal Medicine - [address] [address] Moises Zimmerman MD [address] [place] [phone] 05/13/2025 1:00 PM CDT Office Visit [facility] [address] [place] [address] Laureano Simpson MD Three [facility]. [address] [place], [place] [address] 06/24/2025 10:45 AM CITY RECORDER Office Visit [facility] [address] [facility], [address] [place], [place] [phone] Gosia Portillo PA-C Three [facility] [place] [address] [place], [place] [phone] Karena Taveras MD Three [facility]. [facility] [address] [place], [place] [phone] documented as of this encounter Visit Diagnoses Not on filedocumented in this encounter Additional Health Concerns Infection Onset Date Last Indicated Resolved Time COVID-19 Rule Out 04/14/2020 04/14/2020 04/16/2020 4:01 AM CDT COVID-19 Rule Out 09/16/2022 09/16/2022 09/16/2022 2:28 PM CITY RECORDER COVID-19 Rule Out 02/07/2024 02/07/2024 02/07/2024 11:40 AM CDT COVID-19 Rule Out 02/07/2024 02/07/2024 02/07/2024 11:54 AM CDT COVID-19 Confirmed 02/07/2024 02/07/2024 12:33 AM CDT COVID-19 Rule Out 04/12/2024 04/12/2024 04/12/2024 2:29 PM CDT COVID-19 Rule Out 08/07/2024 08/07/2024 08/09/2024 11:38 AM CITY RECORDER documented as of this encounter Care Teams Industrial Registered Nurse Relationship Specialty [place] [address] [place] [address] PCP - General FAMILY PRACTICE 12/21/19 Moises Torres MD [place] Tree Wrapper CARDIOVASCULAR DISEASE 05/14/19 06/05/23 Laureano Simpson MD [facility]. [address] [address] Consulting Physician CARDIOVASCULAR DISEASE 12/17/19 Melody Gibbs RN [address] [place] [address] Jockey'S Agent (Ambulatory) REGISTERED NURSE 04/17/21 11/09/22 Natanael Jensen MD [address] [facility] [address] [place] [address] Referring Physician NEPHROLOGY 06/06/23 Taylor Stewart RN [address] [place], [place] [address] Jockey'S Agent (Ambulatory) REGISTERED NURSE 09/10/24 09/10/24 Jenna Hess RN [address] [place] [address] Jockey'S Agent (Ambulatory) REGISTERED NURSE 09/10/24 09/26/24 documented as of this encounter
--- OUTSIDE RECORDS SUMMARY | 2024-11-07 14:53 | XMS_ITS | Clinical Summary ---
Author Organization [facility] Address [address] [place] [id number] Phone Care Team Providers Care Transition Specialist Name Role Phone Moises Zimmerman MD Primary Care Provider Allergies Active Allergy Reactions Criticality Noted Date Comments Penicillins Anaphylaxis High 10/07/2015 Medications Medication Sig Dispensed Refills Start Date End Date Status aspirin (ASPIRIN ADULT LOW DOSE) 81 MG EC tablet 1 tablet (81 mg) orally daily 0 09/08/2016 Active finasteride (PROSCAR) 5 MG tablet 1 daily 0 12/17/2015 Active cholecalciferol (VITAMIN D-3) 2000 units capsule 2 daily 0 09/08/2016 Active bisacodyl (BISACODYL LAXATIVE) 5 MG EC tablet prn 08/22/2015 Active warfarin (COUMADIN) 2.5 MG tablet 05/16/2020 Active pantoprazole (PROTONIX) 40 MG EC tablet 06/11/2020 Active lisinopril (PRINIVIL) 20 MG tablet TAKE ONE TABLET BY MOUTH DAILY 30 tablet 11 04/01/2021 Active furosemide (LASIX) 40 MG tablet Take as needed for weight gain over 168 lbs. 07/17/2021 Active carvedilol (COREG) 25 MG tablet 07/13/2021 Active atorvastatin (LIPITOR) 40 MG tablet 03/11/2022 Active Active Problems Problem Noted Date Diagnosed Date Sick sinus syndrome 07/12/2020 Arrhythmia 04/17/2020 Stage 3b chronic kidney disease 09/09/2016 Essential (primary) hypertension 08/27/2015 Calculus of kidney 08/27/2015 Immunizations Name Administration Dates Next Due Influenza Split High Dose Preservative Free IM 1 08/15/2020 Influenza TIV (IM) 06/13/2020,04/15/2014 Influenza, Injectable, Mdck, Preservative Free, Quadrivalt 06/13/2020 Influenza, Injectable, Quadrivalent, Preservativ e Free 07/25/2019 Influenza, Unspecified 06/13/2020,04/15/2014 Moderna Sars-cov-2 Vaccination 01/15/2021,2020 Pneumococcal Conjugate 04/15/2014 Pneumococcal Polysaccharide 10/27/2019 Pneumococcal, Unspecified 05/30/2021 Family History Medical History Relation Comments Malignant neoplastic disease Mother Relation Status Comments Mother Social History Tobacco Use Types Packs/Day Years Used Date Smoking Tobacco: Former Smokeless Tobacco: Never Alcohol Use Standard Drinks/Week Comments Yes 0 (1 standard drink = 0.6 oz pur e alcohol) occasionally AUDIT-C Answer Date Recorded Frequency of Alcohol Consumption Never 12/24/2018 Average Number of Drinks Not on file 019 Frequency of Binge Drinking Not on file 12/13 Sex and Gender Information Value Date Recorded Sex Assigned at Not on file Gender Identity Not on file Sexual Orientation Not on file Last Filed Vital Signs Vital Sign Reading Time Taken Comments Blood Pressure 122/70 04/01/2022 10:57 AM CDT Pulse 72 04/01/2022 10:57 AM CDT Temperature 36.3 C (97.3 F) 04/01/2022 10:57 AM CDT Respiratory Rate - - Oxygen Saturation - - Inhaled Oxygen Concentration - - Weight 71.7 kg (158 lb) 04/01/2022 10:57 AM CDT Height 170.2 cm (5' 7 ) 04/01/2022 10:57 AM CDT Body Mass Index 24.75 04/01/2022 10:57 AM CDT Plan of Treatment Health Maintenance Due Date Last Done Comments Pneumococcal PPSV23/PCV13 65 + Years / High and Highest Risk (2 of 3 - PCV) 10/26/2020 10/27/2019 Pneumococcal PPSV23/PCV13 65 + Years / Low and Medium Risk (2 of 3 - PCV) 10/26/2020 10/27/2019 COVID-19 Vaccine (3 - 2023-2 5 season) 2024 01/15/2021, 12/18/2020 Influenza Vaccine (#1) 2024 0, 06/13/2020, 06/13/2020, Additional history exists Care Teams Transition Specialist Relationship Specialty [place] [address] [place] [address] PCP - General Family Medicine 01/17/20
--- OUTSIDE RECORDS SUMMARY | 2024-11-07 14:53 | XMS_ITS | Encounter Summary ---
Author Organization [facility] Address [facility] [address] [place] [address] Care Team Providers Care Bridge Repair Crew Person Name Role Phone Moises Torres MD Unavailable Unavailabl Laureano Telles MD Unavailable [phone] Moises Zimmerman MD Primary Care Provider [phone] Melody Gibbs RN Unavailable [phone] Natanael Jensen MD Unavailable [phone] Taylor Stewart RN Unavailable [phone] Jenna Hess RN Unavailable [phone] Encounter Details Date Type Department Care Team (Late st Contact Info) Description 09/10/2021 [employer] Message Enc [place] [facility], [address] [address] [address], [facility] Provider lab results Social History Tobacco Use Types Packs/Day Years [...] 11/2019 PHQ-2 Answer Date Recorded PHQ-2 Score - If the patient scores above 3, please move on to questions 3-9 1 04/22/2021 Sex and Gender Information Value Date Recorded [...] have Coronavirus / COVID-19? No / Unsure 09/10/2021 10:04 AM GEOTHERM[employer] FIELD TECHNICIAN documented as of this encounter Plan of Treatment Upcoming Encounters Date Type Department Care Team (Late st Contact Info) Description 01/21/2025 8:35 AM CDT Allied Health/Nurse Visit [place], [address] [place] [address] Karena Taveras MD [facility]. [facility] [address] [place] [address] 04/19/2025 10:40 AM CDT Office Visit [facility] Multispecialty Care - [address], [address] [place] [id number] Blanca Meeks MD [address] [place] [address] 04/22/2025 10:00 AM CDT Office Visit [facility] Family & Internal Medicine [address] [address] Moises Zimmerman MD [address] [place] [id number] 05/13/2025 1:00 PM CDT Office Visit [place] [address] [place] [address] Laureano Simpson MD [facility]. [address] [place], [place] [address] 06/24/2025 10:45 AM GEOTHERMAL FIELD TECHNICIAN Office Visit [facility], [address] [place], [place] [id number] Gosia Portillo PA-C [facility] [address] [place], [place] [id number] Karena Taveras MD [facility]. [address] [place], [place] [id number] documented as of this encounter Visit Diagnoses Not on filedocumented in this encounter Additional Health Concerns Infection Onset Date Last Indicated Resolved Time COVID-19 Rule Out 09/16/2022 09/16/2022 09/16/2022 2:28 PM GEOTHERMAL FIELD TECHNICIAN COVID-19 Rule Out 02/07/2024 02/07/2024 02/07/2024 11:40 AM CDT COVID-19 Rule Out 02/07/2024 02/07/2024 02/07/2024 11:54 AM CDT COVID-19 Confirmed 02/07/2024 02/07/2024 12:33 AM CDT COVID-19 Rule Out 04/12/2024 04/12/2024 04/12/2024 2:29 PM CDT COVID-19 Rule Out 08/07/2024 08/07/2024 08/09/2024 11:38 AM GEOTHERMAL FIELD TECHNICIAN Assessment Noted Time PHQ-9 Depression Total Score: 1 04/22/20 21 9:57 AM CDT documented as of this encounter Care Teams Bridge Repair Crew Person Relationship Specialty Start [place] [address] [place] [address] PCP - General FAMILY PRACTICE 12/21/19 Moises Torres MD [employer] CARDIOVASCULAR DISEASE 05/14/19 06/05/23 Laureano Simpson MD [facility]. [address] [address] Consulting Physician CARDIOVASCULAR DISEASE 12/17/19 Melody Gibbs RN [address] [place] [address] [employer] Worker (Ambulatory) REGISTERED NURSE 04/17/21 11/09/22 Natanael Jensen MD [address] [place], [place] [id number] Referring Physician NEPHROLOGY 06/06/23 Taylor Stewart RN [address] [place], [place] [id number] [employer] Worker (Ambulatory) REGISTERED NURSE 09/10/24 09/10/24 Jenna Hess, RN [address] [place] [address] [employer] Worker (Ambulatory) REGISTERED NURSE 09/10/24 09/26/24 documented as of this encounter
--- OUTSIDE RECORDS SUMMARY | 2024-11-07 14:53 | XMS_ITS | Clinical Summary ---
Author Organization [facility] Address [address] [place] [address] Care Team Providers Care Skip Pit Worker Name Role Phone Laureano Simpson MD Unavailable [phone] Moises Zimmerman MD Primary Care Provider [phone] Natanael Jensen MD Unavailable [phone] Allergies Active Allergy Reactions Criticality Noted Date Comments Penicillins Anaphylaxis High 10/09/2014 Medications vitamin D3, cholecalciferol, 5000 UNITS capsuleIndicatio ns:Vit D def Take 1 capsule (125 mcg total) by mouth daily. Indications: Vit D def 017 Active calcium carbonate (TUMS) 500 MG chewable tabletIndication s:GERD Chew 1 tablet (500 mg total) by mouth 2 (two) times daily. Indications: GERD Active Docusate Sodium (STOOL SOFTENER OR)Indications:C onstipation Take by mouth daily as needed. Indications: Constipation Active Cyanocobalamin (B-12) 50 MCG TabIndications:S upplement Take by mouth daily. Indications: Supplement Active folic acid (FOLVITE) 400 MCG tabletIndication s:Supplement Take 1 tablet (400 mcg total) by mouth. Indications: Supplement 400 mcg on Active albuterol sulfate HFA 108 (90 Base) MCG/ACT inhalerIndicatio ns:SOB Inhale 2 puffs into the lungs every 4 (four) hours as needed for Wheezing or Shortness of breath. 54 g 1 09/25/2 024 Active Fluticasone-Umec lidin-Vilant (TRELEGY ELLIPTA) 100-62.5-25 MCG/ACT AEROSOL POWDER, BREATH ACTIVATEDIndicat ions:SOB Inhale 1 puff into the lungs daily. Rinse mouth with water and spit out after each use. 180 each 1 024 Active pantoprazole EC (PROTONIX) 40 MG tabletIndication s:Gastroesophage al Reflux Disease Indications: Gastroesophageal Reflux Disease TAKE ONE TABLET BY MOUTH DAILY 90 tablet 025 Active aspirin 81 MG chewable tabletIndication s:CVA Chew 1 tablet (81 mg total) by mouth daily. Indications: CVA 90 tablet 3 025 Active atorvastatin (LIPITOR) 40 MG tabletIndication s:Hyperlipidemia , unspecified hyperlipidemia type Take 1 tablet (40 mg total) by mouth nightly at bedtime. 90 tablet 3 025 Active carvedilol (COREG) 25 MG tabletIndication s:HTN Take 1 tablet (25 mg total) by mouth 2 (two) times daily. Indications: HTN 180 tablet 3 025 Active clopidogrel (PLAVIX) 75 MG tabletIndication s:antiplatelet Take 1 tablet (75 mg total) by mouth daily. Indications: antiplatelet 90 tablet 3 025 Active furosemide (LASIX) 40 MG tabletIndication s:Edema Take 1 tablet (40 mg total) by mouth daily. Indications: Edema Take as needed for weight gain over 168 lbs. 90 tablet 1 025 Active losartan (COZAAR) 50 MG tabletIndication s:Mild to Moderate Hypertension Take 1 tablet (50 mg total) by mouth daily. Indications: Mild to Moderate High Blood Pressure 90 tablet 3 025 Active aspirin 81 MG chewable tabletIndication s:CVA Chew 1 tablet (81 mg total) by mouth daily. Indications: CVA 11/05 Discontinued( Reorder) lisinopril (PRINIVIL) 20 MG tabletIndication s:HTN Take 1 tablet (20 mg total) by mouth daily. 90 tablet 024 10/18 Discontinued( Therapy completed) furosemide (LASIX) 40 MG tabletIndication s:Edema Take 1 tablet (40 mg total) by mouth daily. Take as needed for weight gain over 168 lbs. 90 tablet 1 024 11/05 Discontinued( Reorder) atorvastatin (LIPITOR) 40 MG tabletIndication s:HLD TAKE 1 TABLET BY MOUTH NIGHTLY AT BEDTIME. 90 tablet 024 10/19 Discontinued carvedilol (COREG) 25 MG tabletIndication s:HTN TAKE ONE TABLET BY MOUTH TWICE A DAY 180 tablet 025 11/05 Discontinued( Reorder) losartan (COZAAR) 50 MG tabletIndication s:Mild to Moderate Hypertension Take 1 tablet (50 mg total) by mouth daily. Indications: Mild to Moderate High Blood Pressure 025 11/05 Discontinued( Reorder) clopidogrel (PLAVIX) 75 MG tabletIndication s:antiplatelet TAKE ONE TABLET BY MOUTH DAILY 90 tablet 1 025 11/05 Discontinued( Reorder) atorvastatin (LIPITOR) 40 MG tabletIndication s:Hyperlipidemia , unspecified hyperlipidemia type TAKE ONE TABLET BY MOUTH BEDTIME 90 tablet 1 025 11/05 Discontinued( Reorder) Active Problems Problem Noted Date Diagnosed Date CVA (cerebral vascular accident) ([facility]/ C) 09/08/2024 Spinal stenosis of lumbar re gion without neurogenic claudication 08/03/2023 Spondylolisthesis of lumbar region 08/03/2023 Facet hypertrophy of lumbar region 08/03/2023 Atrial fibrillation ([facility]) 06/07/2023 Left inguinal hernia 06/14/2022 Overview (06/14/2022): Added automatically from request for surgery [id number] Arrhythmia 04/17/2020 VT (ventricular tachycardia) ([facility]) 0 04/17/2020 AICD (automatic cardioverter/defibrillator) pres ent 04/17/2020 Overview (04/04/2022): STJ Fortify Assura DDD/ICD implanted 04/17/2020 for NICM/VT. COPD (chronic obstructive pu lmonary disease) ([facility] HHS/[facility]) 11/02/2019 Hyperlipidemia 11/02/2019 Chronic systolic congestive heart failure (CMS/H CC [facility]) 11/02/2019 LV dysfunction 11/02/2019 Hemangioma of skin 04/04/2017 Chronic kidney disease, stage 3 (moderate) 09/09 Essential (primary) hypertension 08/27/2015 Calculus of kidney 08/27/2015 Aphasia 10/09/2014 Visual disturbance 10/09/2014 SSS (sick sinus syndrome) ([facility]) BPH (benign prostatic hyperplasia) GERD (gastroesophageal reflux disease) Resolved Problems Problem Noted Date Diagnosed Date Resolved Date Care Management 11/05/2021 11/10/2022 Encounters Date Type Department Care Team Description 11/05/2024 10:15 AM CDT Office Visit [facility] [address] [phone] Chinyere Luis, JEREMIAH Coronary Artery Disease; Cardiomyopathy; Neurologic Problem 11/05/2024 Travel 10/30/2024 9:45 AM CDT Home Care Visit [facility] [address] [place] [address] Blanca Belle, TIP BANDING MACHINE OPERATOR TIP BANDING MACHINE OPERATOR OASIS DISCHARGE 10/26/2024 9:00 AM CDT Home Care Visit [facility] [address] [place] [address] Blanca Belle, TIP BANDING MACHINE OPERATOR TIP BANDING MACHINE OPERATOR HOME VISIT 10/19/2024 1:20 PM GRAPHICS MANAGER Office Visit [facility] Medical [facility] Family & Internal Medicine [address] [phone] Moises Zimmerman MD Follow Up; Hypertension; MRI Results 10/19/2024 Travel 10/18/2024 8:20 AM GRAPHICS MANAGER Office Visit [facility] Medical Group Multispecialty Care - [address], [address] [place] [address] Blanca Meeks MD New Patient (CVA 09/08/24) 10/18/2024 Travel 10/17/2024 9:00 AM GRAPHICS MANAGER Home Care Visit [facility] [address] [place] [address] Blanca Belle, TIP BANDING MACHINE OPERATOR TIP BANDING MACHINE OPERATOR REASSESSMENT 10/12/2024 10:00 AM GRAPHICS MANAGER - 10/12/2024 11:59 PM GRAPHICS MANAGER Hospital Encounter [facility] [place] [address] Claudette Watts, DRAFTING TEACHER Discharge Disposition: Home or Self Care (Routine Discharge) 10/12/2024 Travel 10/09/2024 10:45 AM GRAPHICS MANAGER Home Care Visit [facility] Home [facility] [address] [place] [address] Blanca Belle, TIP BANDING MACHINE OPERATOR TIP BANDING MACHINE OPERATOR HOME VISIT 10/09/2024 Patient Outreach [facility] Medical Group Family & Internal Medicine [address] [phone] Vashti Burton MA Pre-visit Gap Closure 10/08/2024 10:30 AM GRAPHICS MANAGER [facility] [place] [address] [place] [address] Karena Taveras MD Remote Device Check 10/05/2024 9:30 AM GRAPHICS MANAGER Home Care Visit [facility] [address] [place] [address] Sarah Cuenca, RN SN DISCIPLINE DISCHARGE 10/05/2024 Travel 10/02/2024 10:30 AM GRAPHICS MANAGER Home Care Visit [facility] [address] [place] [address] Cl Vigil, PT PT DISCIPLINE DISCHARGE 10/01/2024 2:30 PM GRAPHICS MANAGER Home Care Visit [facility] [address] [place] [address] Nina Lazaro OT OT DISCIPLINE DISCHARGE 10/01/2024 8:30 AM GRAPHICS MANAGER Home Care Visit [facility] [address] [place] [address] Marilia Lara, A OPERATOR A OPERATOR HOME VISIT 09/28/2024 10:00 AM GRAPHICS MANAGER Home Care Visit [facility] Home [facility] [address] [place] [address] Blanca Belle, TIP BANDING MACHINE OPERATOR TIP BANDING MACHINE OPERATOR HOME VISIT 09/27/2024 8:30 AM GRAPHICS MANAGER Home Care Visit [facility] [address] [place] [address] Venus Andujar, MCKEON MCKEON HOME VISIT 09/27/2024 Patient Outreach [facility] Medical Group Family & Internal Medicine [address] [address] Jenna Hess RN Hospital Follow Up ( [facility] Week # 3 - Final) 09/26/2024 8:30 AM GRAPHICS MANAGER Home Care Visit [place] [address] [place] [address] Marilia Lara, A OPERATOR A OPERATOR HOME VISIT 09/25/2024 10:00 AM GRAPHICS MANAGER Home Care Visit [place] [address] [place] [address] Venus Andujar, MCKEON MCKEON HOME VISIT 09/24/2024 10:45 AM GRAPHICS MANAGER Home Care Visit [place] [address] [place] [address] Marilia Lara, A OPERATOR A OPERATOR HOME VISIT 09/21/2024 11:00 AM GRAPHICS MANAGER Home Care Visit [place] [address] [place] [address] Chanda Hernandez, ARGELIA SN HOME VISIT 09/21/2024 9:45 AM GRAPHICS MANAGER Home Care Visit [facility] [address] [place] [address] Venus Andujar, MCKEON MCKEON HOME VISIT 09/21/2024 8:30 AM GRAPHICS MANAGER Home Care Visit [facility] [address] [place] [address] Marilia Lara, A OPERATOR A OPERATOR HOME VISIT 09/20/2024 2:20 PM GRAPHICS MANAGER Office Visit [facility] Family & Internal [facility] [address] [place] [address] Moises Zimmerman MD TCM (Had stroke was admitted/[facility]) 09/20/2024 Travel 09/19/2024 2:15 PM GRAPHICS MANAGER Home Care Visit [facility] [address] [place] [address] Marilia Lara, A OPERATOR A OPERATOR HOME VISIT 09/19/2024 9:00 AM GRAPHICS MANAGER Home Care Visit [place] [address] [place] [address] Blanca Belle, TIP BANDING MACHINE OPERATOR TIP BANDING MACHINE OPERATOR INITIAL EVALUATION 09/18/2024 9:30 AM GRAPHICS MANAGER Home Care Visit [facility] [address] [place] [address] Nina Lazaro OT OT INITIAL EVALUATION 09/18/2024 Home Care Visit [place] [address] [place] [address] Blanca Belle, TIP BANDING MACHINE OPERATOR CASE COMMUNICATION 09/17/2024 Patient Outreach [facility] Family Internal [facility] [phone] [place] [phone] Jenna Hess RN Hospital Follow Up (TCM Week # 2) 09/14/2024 9:30 AM GRAPHICS MANAGER Home Care Visit [place] [address] [place] [address] Cl Vigil, PT PT INITIAL EVALUATION 09/13/2024 11:00 AM GRAPHICS MANAGER Home Care Visit [place] [address] [place] [address] Thi Nieto, RN SN OASIS START OF CARE 09/13/2024 Plan of Care Documentation [place] [address] [place] [address] 09/12/2024 Telephone [facility] Family & Internal [facility] [address] [place] [phone] Moises Zimmerman MD Follow Up Call 09/12/2024 Patient Outreach [facility] Family & Internal Medicine [address] [phone] Jenna Hess RN TCM (SJS 09/08-09/11) 09/11/2024 1:10 PM GRAPHICS MANAGER Home Care Visit [facility] [address] [place] [address] Amparo Hill LPN LIAISON VISIT 09/11/[address] [address] Mirta Miguel RN Remote Device Check 09/10/2024 Telephone [facility] [address] [place] [address] Moises Zimmerman MD Advise 09/10/2024 Patient Outreach [facility] Family & Internal [address] [address] Taylor Stewart RN Hospital Follow Up (TCM SJS admit 09/08/24- Asphasia. ) 09/08/2024 2:22 AM GRAPHICS MANAGER - 09/11/2024 1:50 PM GRAPHICS MANAGER Hospital Encounter [facility] Care Unit [address] [place], [place] [phone] Cuong Maya MD Shackour, Salim, MD Lin, Kevin A, MD Discharge Disposition: Home with Home Health Care 09/08/2024 Travel 09/07/2024 Scan [facility] INFO SRVCS Scanned, Doc Med Group Image (SCAN); CT (SCAN); Lab (SCAN) from Last 3 Months Immunizations Name Administration Dates Next Due Afluria 36 MONTHS+ (Prefilled Syringe IIV4) 07/15 Flucelvax 6 Months+ (Prefilled Syringe) 06/13/20 Fluzone High Dose - >Age 65 (Prefilled Syringe) 05/25/2022,06/15/2021 Influenza (Generic) 04/15/2014 Influenza Adult (Generic) 07/04/2024,07/20/2023, 06/13/2020 MODERNA COVID-19 (12+) MRNA, LNP-S, PF, 100 MCG/ 0.5 ML DOSE 01/15/2021,12/18/2020 Pneumococcal (Generic) 05/30/2021 Pneumococcal (Pneumovax 23) 05/30/2021, 0 Pneumococcal (Prevnar 7) 04/15/2014 Family History Medical History Relation Comments Cancer Mother Relation Status Comments Father Mother Social History Tobacco Use Types Packs/Day Years Used Date Smoking Tobacco: Former Cigarettes 0.5 55 1 958 - 2013 Passive Smoke Exposure: Past Smokeless Tobacco: Never Tobacco Cessation:Counseling Given: No Comments:quit tobacco 2012 Alcohol Use Standard Drinks/Week Comments Yes 0 (1 standard drink = 0.6 oz pur e alcohol) 4-5 cans of beer per month OASIS D0700: Social Isolation Answer Da te Recorded Frequency of experiencing loneliness or isolatio n Never 10/30/2024 OASIS A1250: Transportation Answer Date Recorded Lack of Transportation (Medical) No 10/30/2024 Lack of Transportation (Non-Medical) No 10/30/2024 Patient Unable or Declines to Respond No 10/30/2024 OASIS B1300: Health Literacy Answer Adan e Recorded Frequency of needing help to read materials from doctor or pharmacy Sometimes 10/30/2024 [facility] Utilities Answer Date Recorded In the past 12 months has th e [employer], [employer], oil, or water [employer] threatened to shut off services in your home? No 09/08/2024 Humiliation, Afraid, Rape, and Kick questionnair e Answer Date Recorded Within the last year, have y ou been afraid of your partner or ex-partner? No 09/08/2024 Within the last year, have y ou been humiliated or emotionally abused in other ways by your partner or ex-partner? No Within the last year, have y ou been kicked, hit, slapped, or otherwise physically hurt by your partner or ex-partner? No 09/08/2024 Within the last year, have y ou been raped or forced to have any kind of sexual activity by your partner or ex-partner? No 09/08/2024 Social Connection and Isolat ion Panel [NHANES] Answer Date Recorded In a typical week, how many times do you talk on the phone with family, friends, or neighbors? More than three times a week 05/14/2022 How often do you get togethe r with friends or relatives? Twice a week 05/14/2022 How often do you attend chur ch or cheondoism services? Never 05/14/2022 Do you belong to any clubs o r organizations such as episcopal groups, unions, fraternal or athletic groups, or [...] care, and heating? Not hard at all 09/08/2024 PHQ-2 Answer Date Recorded Patient Health Questionnaire-2 Score 0 10/18/2024 [facility] - Occupational Stress Questionnaire Answer Date Recorded [...] the money to buy more. Never true 01/25/20 25 Within the past 12 months, t he food you bought just didn't last and you didn't have money to get more. Never true 09/08/2024 PRAPARE - Transportation Answer Date Re corded In the past 12 months, has l ack of transportation kept you from medical appointments or from getting medications? No 08/16 In the past 12 months, has l ack of transportation kept you from meetings, work, or from getting things needed for daily living? No 09/08/2024 Housing Stability Vital Sign Answer Adan e [...] place to sleep or slept in a intermediate (including now)? No 05/14/2022 Housing Stability Vital Sign Answer Adan e Recorded In the last 12 months, was t here a time when you were not able to pay the mortgage or rent on time? No 09/08/2024 In the past 12 months, how m any times have you moved where you were living? 0 09/08/2024 At any time in the past 12 m [facility], were you homeless or living in a intermediate (including now)? No 09/08/2024 Sex and Gender Information Value Date Recorded [...] Sign Reading Time Taken Comments Blood Pressure 110/60 11/05/2024 10:02 AM CDT Pulse 61 11/05/2024 10:02 AM CDT Temperature 36.7 C (98 F) 10/19/2024 1:15 PM GRAPHICS MANAGER Respiratory Rate 18 10/30/2024 9:14 AM CDT Oxygen Saturation 94% 10/30/2024 9:14 AM CDT Inhaled Oxygen Concentration - - Weight 78.5 kg (173 lb) 11/05/2024 10:02 AM CDT Height 170.2 cm (5' 7 ) 11/05/2024 10:02 AM CDT Body Mass Index 27.1 11/05/2024 10:02 AM CDT Plan of Treatment Upcoming Encounters Date Type Department Care Team (Late st Contact Info) Description 01/21/2025 8:35 AM CDT [facility] [address] [place] [address] Karena Taveras MD [facility] [address] [place] [address] 04/19/2025 10:40 AM CDT Office Visit [facility] Multispecialty Care - [address], [address] [place] [phone] Blanca Meeks MD [address] [place] [address] 04/22/2025 10:00 AM CDT Office Visit [facility] Medical [facility] Family & Internal Medicine - [address] [phone] Moises Zimmerman MD [address] [place] [phone] 05/13/2025 1:00 PM CDT Office Visit [facility] [phone] Laureano Simpson MD [facility]. [facility] [address] [place] [address] 06/24/2025 10:45 AM GRAPHICS MANAGER [facility] [address] [place] [address] Gosia Portillo PA-C [facility] [address] [place] [address] Karena Taveras MD [facility]. [address] [place] [address] Health Maintenance Due Date Last Done Comments DTaP, Tdap and Td Vaccines (1 - Tdap) 1960 Zoster Vaccines (1 of 2) 1991 Annual Medicare Wellness Visit 2006 RSV Immunization or 60+ Years (1 - 1-dose 75+ series) 2016 Pneumococcal Vaccine: 65+ Years (2 of 2 - PCV) 05/30/2022 05/30/2021, 10/27/2019, 04/15/2014 COVID-19 Vaccine ( season) 2024 01/15/2021, 12/18/2020 Influenza Adult Completed 07/04/2024, 12/0 01/2023, 05/25/2022, Additional history exists PHQ-2 ([facility]) Completed 10/18/2024 Meningococcal B Vaccine Aged Out No l onger eligible based on patient's age to complete this topic Meningococcal Vaccine Aged Out No mallory carlos eligible based on patient's age to complete this topic RSV Immunizations Under 20 Months Aged Out No longer eligible based on patient's age to complete this topic Goals Goal Patient Goal Type Associated Problems Recent Progress Patient-Stated? Author Safety - demonstrates understanding of home safety measures Lifestyle Madisyn Carson, RN Safety Patient/family will have appropriate support at home upon discharge Lifestyle Madisyn Carson RN Medical Devices Implanted Type Area Office Services Coordinator Device Identifier Shelf Expiration Date Model / Serial / Lot [employer] 24mm-Closure Device-06/07/20 Implanted:Qty: 1 on 06/07/2023 by Karena Taveras MD Closure Device 01/27/2026 / / [id number] Sja Icd-04/17/2020 Implanted:Qty: 1 on 04/17/2020 by Karena Taveras MD ICD Left: Chest Wall [facility] [id number] / [id number] / Description:MR Blair a t 1.5 T only, Max spatial gradient field of 3000 Gauss/cm or less, Max slew rate 200 T/m/s, Supine or prone only, Max whole body BRUCE of 2 W/kg or less, Head BRUCE 3.2 W/kg or less Ra Lead-04/17/2020 Implanted:04/17 by Karena Taveras MD (Quantity not on file) Lead Implant Heart [facility] [id number]-[id number] 2 / [id number] / Rv Lead-04/17/2020 Implanted:04/17 by Karena Taveras MD (Quantity not on file) Lead Implant Heart [facility] [id number] / [id number] / Mesh Marlex Groin 4 X 1.8 - [id number] Implanted:Qty: 1 on 12/30/2022 by Keyshawn Boyle MD at [facility] Mesh Left: Abdomen [employer] - DIV C [employer] [id number] 06/11/2027 [id number] / / [id number] Mesh Marlex Groin 4 X 1.8 - [id number] Implanted:Qty: 1 on 12/30/2022 by Keyshawn Boyle MD at [facility] Mesh Left: Abdomen [employer] - [employer] [id number] 06/11/2027 [id number] / / [id number] On-Q Antimicrobial Expansion Kits With Silversoaker Antimicrobial Catheter Implanted:Qty: 1 on 12/30/2022 by Keyshawn Boyle MD at [facility] Left: Abdomen [employer] [id number] 12/06/2024 [id number] / / [id number] Procedures Procedure Name Priority Date/Time Associated Diagnosis Comments MRI BRAIN WO CON Routine 10/12/2024 11:5 1 AM GRAPHICS MANAGER Cerebral infarction, unspecified (CMS/HCC HHS/HCC) MRA HEAD WO CON Routine 10/12/2024 11:43 AM GRAPHICS MANAGER Cerebral infarction, unspecified (CMS/HCC [facility]HS/[facility]) XR CHEST PA OR AP 1V STAT 10/12/2024 10:25 AM GRAPHICS MANAGER S/P ICD (internal cardiac defibrillator) procedure POCT GLUCOSE - OWENS DOCKED DEVICE Routine 09/11/2024 11:59 AM GRAPHICS MANAGER POCT GLUCOSE - OWENS DOCKED DEVICE Routine 09/10/2024 6:09 PM GRAPHICS MANAGER USE TRANSESOPHAGEAL ECHO Today 09/10/2024 3:40 PM GRAPHICS MANAGER POCT GLUCOSE - OWENS DOCKED DEVICE Routine 09/10/2024 11:39 AM GRAPHICS MANAGER POCT GLUCOSE - OWENS DOCKED DEVICE Routine 09/10/2024 6:19 AM GRAPHICS MANAGER POCT GLUCOSE - OWENS DOCKED DEVICE Routine 09/09/2024 9:[address] HEAD WO CON TIMED 09/09/2024 4:31 PM GRAPHICS MANAGER POCT GLUCOSE - OWENS DOCKED DEVICE Routine 09/09/2024 4:06 PM GRAPHICS MANAGER POCT GLUCOSE - OWENS DOCKED DEVICE Routine 09/09/2024 11:31 AM GRAPHICS MANAGER MAGNESIUM Routine 09/09/2024 1:58 AM GRAPHICS MANAGER COMPREHENSIVE METABOLIC PANEL Routine 09/09/2024 1:58 AM GRAPHICS MANAGER CBC W/DIFF AUTOMATED Routine 09/09/2024 1:58 AM GRAPHICS MANAGER POCT GLUCOSE - OWENS DOCKED DEVICE Routine 09/08/2024 10:57 PM GRAPHICS MANAGER POCT GLUCOSE - OWENS DOCKED DEVICE Routine 09/08/2024 8:29 PM GRAPHICS MANAGER POCT GLUCOSE - OWENS DOCKED DEVICE Routine 09/08/2024 8:07 PM GRAPHICS MANAGER POCT GLUCOSE - OWENS DOCKED DEVICE Routine 09/08/2024 3:39 PM GRAPHICS MANAGER TROPONIN, QUANT TIMED 09/08/2024 3:27 PM GRAPHICS MANAGER USV CAROTID DUPLEX MYRIAM Today 2:31 PM GRAPHICS MANAGER POCT GLUCOSE - OWENS DOCKED DEVICE Routine 09/08/2024 11:41 AM GRAPHICS MANAGER LIPID PANEL TIMED 09/08/2024 9:15 AM GRAPHICS MANAGER TROPONIN, QUANT TIMED 09/08/2024 9:15 AM GRAPHICS MANAGER POCT GLUCOSE - OWENS DOCKED DEVICE Routine 09/08/2024 5:39 AM GRAPHICS MANAGER ECG 12-LEAD STAT 09/08/2024 3:26 AM GRAPHICS MANAGER HEPARIN, ANTI XA, UFH STAT 09/08/2024 3:02 AM GRAPHICS MANAGER PARTIAL THROMBOPLASTIN TIME,PTT STAT 09/08/2024 3:02 AM GRAPHICS MANAGER PROTHROMBIN TIME, VENOUS STAT 09/08/2024 3:02 AM GRAPHICS MANAGER TROPONIN, QUANT TIMED 09/08/2024 3:02 AM GRAPHICS MANAGER PRO-BRAIN NATRIURETIC PEPTIDE STAT 09/08/2024 3:02 AM GRAPHICS MANAGER HEMOGLOBIN, GLYCOSYLATED STAT 09/08/2024 3:02 AM GRAPHICS MANAGER MAGNESIUM STAT 09/08/2024 3:02 AM GRAPHICS MANAGER COMPREHENSIVE METABOLIC PANEL STAT 09/08/2024 3:02 AM GRAPHICS MANAGER CBC W/DIFF AUTOMATED STAT 09/08/2024 3:[address] GENERIC 09/07/2024 OUTSIDE LAB (SCAN ORDER) 09/07/2024 OUTSIDE LAB (SCAN ORDER) 09/07/2024 OUTSIDE PT/INR (SCAN ORDER) 09/07/2024 OUTSIDE LAB (SCAN ORDER) 09/07/2024 IMAGE GENERIC 09/07/2024 from Last 3 Months Results * MRI BRAIN WO CON (10/12/2024 11:51 AM GRAPHICS MANAGER) Anatomical Region Laterality Modality Head Magnetic Resonan ce 10/13/2024 9:46 PM GRAPHICS MANAGER Addenda Addendum by Aldair Juan MD on 10/13/2024 9:56 PM GRAPHICS MANAGER [address] [address] ADDENDUM REPORT: Upon further review, the prior report had a few radio host errors, please see the below report: EXAMINATION: MRI BRAIN WO CON, MRA HEAD WO CON, 10/13/2024 9:46 PM TECHNIQUE: Multiplanar multisequence magnetic resonance images of the brain were obtained without venous contrast. Axial 3-D teec-at-spttxs MOTSA images of the [place] were obtained from magnetic resonance images of the head. Maximum intensity projection images were generated HISTORY: Followup CVA COMPARISON: CT head 09/09/2024 FINDINGS: MRI BRAIN: There is no restricted diffusion to suggest an acute infarction elevated DWI signal within the left temporoparietal subcortical white matter (best seen on series 4 image 17) that may relate to T2 shine through phenomenon. No hemorrhagic focus of susceptibility. Old infarct involving the inferior portion of the left occipital lobe. Additional old infarcts involving the cerebellar hemispheres, left greater than right. Additional old infarcts involving the left greater than right caudate nuclei. Scattered subcortical and confluent periventricular white matter foci demonstrating increased signal on T2-weighted FLAIR images there are nonspecific but most commonly seen in setting of chronic small vessel ischemic change. The sellar, callosal, pineal, and craniovertebral junction regions appear within normal limits. No extra-axial collection. Mild global cerebral volume loss of exvacuodilatation of ventricles and cerebral sulci. The basal cisterns appear normal. The proximal intracranial arterial flow voids have a normal appearance. Prior bilateral ocular lens extractions with prosthetic lens implant dilatation. Paranasal sinuses and mastoid air cells are well-aerated otherwise. Trace right mastoid air cell fluid. MRA HEAD: The petrous and cavernous portions of the internal carotid arteries are patent. Normal anterior communicating artery. The middle cerebral arteries appear patent proximally. Left vertebral artery posterior circulation. The basilar artery appears patent. origin right posterior cerebral artery. Posterior cerebral arteries appear patent otherwise. 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 IMPRESSION: 1. No acute intracranial abnormality. 2. 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 3. 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 4. Mild global cerebral volume loss and moderate chronic small vessel ischemic change. Referred By: Interpreted By: Aldair Juan MD, 10/13/2024 9:54 PM Impressions 10/13/2024 9:50 PM GRAPHICS MANAGER IMPRESSION: 1. No acute intracranial abnormality. 2. 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 3. 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 4. Mild global cerebral volume loss and moderate chronic small vessel ischemic change. Referred By: Interpreted By: Aldair Juan MD, 10/13/2024 9:46 PM Narrative 10/13/2024 9:50 PM GRAPHICS MANAGER [facility] [address] [place], [place] [address] EXAMINATION: MRI BRAIN WO CON, MRA HEAD WO CON, 10/13/2024 9:46 PM TECHNIQUE: Multiplanar multisequence magnetic resonance images of the brain were obtained without venous contrast. Axial 3-D vzab-nu-hzuwyd MOTSA images of the [place] were obtained from magnetic resonance images of the head. Maximum intensity projection images were generated HISTORY: Followup CVA COMPARISON: CT head 09/09/2024 FINDINGS: MRI BRAIN: There is no restricted diffusion to suggest an acute infarction elevated DWI signal within the left temporoparietal subcortical white matter (best seen on series 4 image 17) that may relate to T2 shine through phenomenon. No hemorrhagic focus of susceptibility. Old infarct involving the inferior portion of the left occipital lobe. Additional old infarcts involving the cerebellar hemispheres, left greater than right. Additional old infarcts involving the left greater than right caudate nuclei. Scattered subcortical and confluent periventricular white matter foci demonstrating increased signal on T2-weighted FLAIR images there are nonspecific but most commonly seen in setting of chronic small vessel ischemic change. The sellar, callosal, pineal, and craniovertebral junction regions appear within normal limits. No extra-axial collection. Mild global cerebral volume loss of exvacuodilatation of ventricles and cerebral sulci. The basal cisterns appear normal. The proximal intracranial arterial flow voids have a normal appearance. Prior bilateral ocular lens extractions with prosthetic lens implant dilatation. Paranasal sinuses and mastoid air cells are well-aerated otherwise. Trace right mastoid air cell fluid. MRA HEAD: The petrous and cavernous portions of the internal carotid arteries are patent. Normal intercommunicating artery. The middle cerebral arteries appear patent proximally. Left vertebral artery posterior circulation. The basilar artery appears patent. origin right posterior cerebral artery. Posterior cerebral arteries appear patent otherwise. Moderate to high-grade focal stenosis involving the anterior division of the left posterior cerebral artery at the distal P2/proximal to 3 segment extending into the area of encephalomalacia. Procedure Note Aldair Juan MD - 10/13/[address] [address] EXAMINATION: MRI BRAIN WO CON, MRA HEAD WO CON, 10/13/2024 9:46 PM TECHNIQUE: Multiplanar multisequence magnetic resonance images of thebrain were obtained without venous contrast. Axial 3-D fmvv-va-rghdocNDEIZ images of the [place] were obtained from magnetic resonanceimages of the head. Maximum intensity projection images were generated HISTORY: Followup CVA COMPARISON: CT head 09/09/2024 FINDINGS: MRI BRAIN: There is no restricted diffusion to suggest an acute infarctionelevated DWI signal within the left temporoparietal subcortical whitematter (best seen on series 4 image 17) that may relate to T2 shinethrough phenomenon. No hemorrhagic focus of susceptibility. Old infarctinvolving the inferior portion of the left occipital lobe. Additional oldinfarcts involving the cerebellar hemispheres, left greater than right.Additional old infarcts involving the left greater than right caudatenuclei. Scattered subcortical and confluent periventricular white matterfoci demonstrating increased signal on T2-weighted FLAIR images there arenonspecific but most commonly seen in setting of chronic small vesselischemic change. The sellar, callosal, pineal, and craniovertebraljunction regions appear within normal limits. No extra-axial collection. Mild global cerebral volume loss ofexvacuodilatation of ventricles and cerebral sulci. The basal cisternsappear normal. The proximal intracranial arterial flow voids have anormal appearance. Prior bilateral ocular lens extractions withprosthetic lens implant dilatation. Paranasal sinuses and mastoid aircells are well-aerated otherwise. Trace right mastoid air cell fluid. MRA HEAD: The petrous and cavernous portions of the internal carotidarteries are patent. Normal intercommunicating artery. The middlecerebral arteries appear patent proximally. Left vertebral arteryposterior circulation. The basilar artery appears patent. originright posterior cerebral artery. Posterior cerebral arteries appearpatent otherwise. Moderate to high-grade focal stenosis involving theanterior division of the left posterior cerebral artery at the distalP2/proximal to 3 segment extending into the area of encephalomalacia. IMPRESSION: 1. No acute intracranial abnormality. 2. 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 3. 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 4. Mild global cerebral volume loss and moderate chronic small vesselischemic change. Referred By: Interpreted By: Aldair Juan MD, 10/13/2024 9:46 PM Claudette Watts DRAFTING TEACHER MRI Edited Resul t - Final * MRA HEAD WO CON (10/12/2024 11:43 AM GRAPHICS MANAGER) Anatomical Region Laterality Modality Head Magnetic Resonan ce 10/13/2024 9:46 PM GRAPHICS MANAGER Addenda Addendum by Aldair Juan MD on 10/13/2024 9:56 PM GRAPHICS MANAGER [address] [address] ADDENDUM REPORT: Upon further review, the prior report had a few radio host errors, please see the below report: EXAMINATION: MRI BRAIN WO CON, MRA HEAD WO CON, 10/13/2024 9:46 PM TECHNIQUE: Multiplanar multisequence magnetic resonance images of the brain were obtained without venous contrast. Axial 3-D witu-ow-fzlpka MOTSA images of the [place] were obtained from magnetic resonance images of the head. Maximum intensity projection images were generated HISTORY: Followup CVA COMPARISON: CT head 09/09/2024 FINDINGS: MRI BRAIN: There is no restricted diffusion to suggest an acute infarction elevated DWI signal within the left temporoparietal subcortical white matter (best seen on series 4 image 17) that may relate to T2 shine through phenomenon. No hemorrhagic focus of susceptibility. Old infarct involving the inferior portion of the left occipital lobe. Additional old infarcts involving the cerebellar hemispheres, left greater than right. Additional old infarcts involving the left greater than right caudate nuclei. Scattered subcortical and confluent periventricular white matter foci demonstrating increased signal on T2-weighted FLAIR images there are nonspecific but most commonly seen in setting of chronic small vessel ischemic change. The sellar, callosal, pineal, and craniovertebral junction regions appear within normal limits. No extra-axial collection. Mild global cerebral volume loss of exvacuodilatation of ventricles and cerebral sulci. The basal cisterns appear normal. The proximal intracranial arterial flow voids have a normal appearance. Prior bilateral ocular lens extractions with prosthetic lens implant dilatation. Paranasal sinuses and mastoid air cells are well-aerated otherwise. Trace right mastoid air cell fluid. MRA HEAD: The petrous and cavernous portions of the internal carotid arteries are patent. Normal anterior communicating artery. The middle cerebral arteries appear patent proximally. Left vertebral artery posterior circulation. The basilar artery appears patent. origin right posterior cerebral artery. Posterior cerebral arteries appear patent otherwise. 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 IMPRESSION: 1. No acute intracranial abnormality. 2. 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 3. 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 4. Mild global cerebral volume loss and moderate chronic small vessel ischemic change. Referred By: Interpreted By: Aldair Juan MD, 10/13/2024 9:54 PM Impressions 10/13/2024 9:50 PM GRAPHICS MANAGER IMPRESSION: 1. No acute intracranial abnormality. 2. 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 3. 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 4. Mild global cerebral volume loss and moderate chronic small vessel ischemic change. Referred By: Interpreted By: Aldair Juan MD, 10/13/2024 9:46 PM Narrative 10/13/2024 9:50 PM GRAPHICS MANAGER [address] [address] EXAMINATION: MRI BRAIN WO CON, MRA HEAD WO CON, 10/13/2024 9:46 PM TECHNIQUE: Multiplanar multisequence magnetic resonance images of the brain were obtained without venous contrast. Axial 3-D ojcw-px-syouqe MOTSA images of the [place] were obtained from magnetic resonance images of the head. Maximum intensity projection images were generated HISTORY: Followup CVA COMPARISON: CT head 09/09/2024 FINDINGS: MRI BRAIN: There is no restricted diffusion to suggest an acute infarction elevated DWI signal within the left temporoparietal subcortical white matter (best seen on series 4 image 17) that may relate to T2 shine through phenomenon. No hemorrhagic focus of susceptibility. Old infarct involving the inferior portion of the left occipital lobe. Additional old infarcts involving the cerebellar hemispheres, left greater than right. Additional old infarcts involving the left greater than right caudate nuclei. Scattered subcortical and confluent periventricular white matter foci demonstrating increased signal on T2-weighted FLAIR images there are nonspecific but most commonly seen in setting of chronic small vessel ischemic change. The sellar, callosal, pineal, and craniovertebral junction regions appear within normal limits. No extra-axial collection. Mild global cerebral volume loss of exvacuodilatation of ventricles and cerebral sulci. The basal cisterns appear normal. The proximal intracranial arterial flow voids have a normal appearance. Prior bilateral ocular lens extractions with prosthetic lens implant dilatation. Paranasal sinuses and mastoid air cells are well-aerated otherwise. Trace right mastoid air cell fluid. MRA HEAD: The petrous and cavernous portions of the internal carotid arteries are patent. Normal intercommunicating artery. The middle cerebral arteries appear patent proximally. Left vertebral artery posterior circulation. The basilar artery appears patent. origin right posterior cerebral artery. Posterior cerebral arteries appear patent otherwise. Moderate to high-grade focal stenosis involving the anterior division of the left posterior cerebral artery at the distal P2/proximal to 3 segment extending into the area of encephalomalacia. Procedure Note Aldair Juan MD - 10/13/[address] [address] EXAMINATION: MRI BRAIN WO CON, MRA HEAD WO CON, 10/13/2024 9:46 PM TECHNIQUE: Multiplanar multisequence magnetic resonance images of thebrain were obtained without venous contrast. Axial 3-D voxt-jr-[id number] images of the [place] were obtained from magnetic resonanceimages of the head. Maximum intensity projection images were generated HISTORY: Followup CVA COMPARISON: CT head 09/09/2024 FINDINGS: MRI BRAIN: There is no restricted diffusion to suggest an acute infarctionelevated DWI signal within the left temporoparietal subcortical whitematter (best seen on series 4 image 17) that may relate to T2 shinethrough phenomenon. No hemorrhagic focus of susceptibility. Old infarctinvolving the inferior portion of the left occipital lobe. Additional oldinfarcts involving the cerebellar hemispheres, left greater than right.Additional old infarcts involving the left greater than right caudatenuclei. Scattered subcortical and confluent periventricular white matterfoci demonstrating increased signal on T2-weighted FLAIR images there arenonspecific but most commonly seen in setting of chronic small vesselischemic change. The sellar, callosal, pineal, and craniovertebraljunction regions appear within normal limits. No extra-axial collection. Mild global cerebral volume loss ofexvacuodilatation of ventricles and cerebral sulci. The basal cisternsappear normal. The proximal intracranial arterial flow voids have anormal appearance. Prior bilateral ocular lens extractions withprosthetic lens implant dilatation. Paranasal sinuses and mastoid aircells are well-aerated otherwise. Trace right mastoid air cell fluid. MRA HEAD: The petrous and cavernous portions of the internal carotidarteries are patent. Normal intercommunicating artery. The middlecerebral arteries appear patent proximally. Left vertebral arteryposterior circulation. The basilar artery appears patent. originright posterior cerebral artery. Posterior cerebral arteries appearpatent otherwise. Moderate to high-grade focal stenosis involving theanterior division of the left posterior cerebral artery at the distalP2/proximal to 3 segment extending into the area of encephalomalacia. IMPRESSION: 1. No acute intracranial abnormality. 2. 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 3. 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 4. Mild global cerebral volume loss and moderate chronic small vesselischemic change. Referred By: Interpreted By: Aldair Juan MD, 10/13/2024 9:46 PM Claudette Watts NP MRI Edited Resul t - Final * XR CHEST PA OR AP 1V (10/12/2024 10:25 AM GRAPHICS MANAGER) Anatomical Region Laterality Modality Chest Radiographic Avani ging 10/12/2024 10:5 9 AM GRAPHICS MANAGER Impressions 10/12/2024 11:06 AM GRAPHICS MANAGER ======== IMPRESSION: ======== 1. AICD device seen stable and appearance to prior study without definite discontinuous leads visualized. Ordered By: CLAUDETTE WATTS Interpreted By: Tommy Putnam MD, 10/12/2024 10:59 AM Narrative 10/12/2024 11:06 AM GRAPHICS MANAGER [place] [address] Examination: Chest Radiograph, 1 view Exam Date/Time: 10/12/2024 10:13 AM Reason For Exam: check ICD and leads prior to MRI Comparison: 09/07/2024 Technique: Single AP view of the chest. Findings: AICD device is seen in place. Leads are continuous in their viewed portions. Some areas are redundant and difficult to evaluate. No definite change from prior study seen. Pleural calcifications are noted. Heart size is normal. Pulmonary vasculature is within normal limits. There is no large pleural effusion or pneumothorax. No focal infiltrate or consolidative change. Procedure Note Tommy Putnam MD - 10/12/[address] [address] Examination: Chest Radiograph, 1 view Exam Date/Time: 10/12/2024 10:13 AM Reason For Exam: check ICD and leads prior to MRI Comparison: 09/07/2024 Technique: Single AP view of the chest. Findings: AICD device is seen in place. Leads are continuous in theirviewed portions. Some areas are redundant and difficult to evaluate. Nodefinite change from prior study seen. Pleural calcifications are noted. Heart size is normal. Pulmonary vasculature is within normal limits. Thereis no large pleural effusion or pneumothorax. No focal infiltrate orconsolidative change. ======== IMPRESSION: ======== 1. AICD device seen stable and appearance to prior study without definitediscontinuous leads visualized. Ordered By: CLAUDETTE WATTS Interpreted By: Tommy Putnam MD, 10/12/2024 10:59 AM Claudette Watts DRAFTING TEACHER GENERAL IMAGING Final Result * POCT glucose (09/11/2024 11:59 AM GRAPHICS MANAGER) Only the most recent of13 resultswithin the time period is included. GLUCOSE POC 107 70 - 109 09/11/2024 12:52 PM GRAPHICS MANAGER [facility] 09/11/2024 11:5 9 AM GRAPHICS MANAGER Devin Howard MD POCT ORDERABLES - DEVICE Final R esult [facility] [address] [place] [address], [place] [phone] [id number] * USE TRANSESOPHAGEAL ECHO (09/10/2024 3:40 PM GRAPHICS MANAGER) Anatomical Region Laterality Modality Cardiac Echocardiogram 09/10/2024 3:06 PM GRAPHICS MANAGER Narrative 09/10/2024 6:23 PM GRAPHICS MANAGER Transesophageal Echocardiography Report Pat.Name: ONEAL SCOTT Pat.ID: [id number] .Date: 09/10/2024 Refer.MD: HIRA ESQUEDA Exam Time: 3:06:00 PM Study Type:TRANSESOPHAGEAL ECHO (SOPHIE) Height: 67 in Age: 9 1940,84Y Sex: M BP: 135/76 HR: 78 bpm Sonogrphr: Filiberto Jones RDCS, RVT Pat. Stat.:Inpatient CPT - 4: 70200 [id number] Reason for Study:Atrial fibrillation / flutter Procedures: 2D, 3 Dimensional imaging with full Doppler and color interigation, M-mode, Doppler, Color Flow, Transesophageal Race: W ++++++++++++++++++++++++++++++++++++ SUMMARY: ++++++++++++++++++++++++++++++++++++ The left ventricular systolic function is moderately depressed. Estimated left ventricular ejection fraction is 40%. The right ventricular size is mildly enlarged. Right ventricular systolic function is mildly depressed. The agitated saline injection showed no clear evidence of shunting into the left atrium, consistent with no patent foramen ovale. No evidence of pericardial effusion. The aortic valve is trileaflet with moderate sclerosis. Mild regurgitation. Mild mitral regurgitation. Mild tricuspid regurgitation. Left atrial appendage shows Watchman device deployed slightly off axis, no para-device leak, no surface thrombus. ++++++++++++++++++++++++++++++++++++ FINDINGS: ++++++++++++++++++++++++++++++++++++ SOPHIE: The patient was counseled and an informed consent was obtained. The posterior pharynx was anesthetized. The patient was placed in a left lateral recumbent position and a plastic bite was inserted into the mouth. IV sedation was administered. The transesophageal echo probe was inserted into the posterior pharynx and the esophagus was then intubated without difficulty. Multiple views were then obtained from the upper, mid, and lower esophagus and the gastric fundus. The scope was rotated 180 degrees and the aorta was visualized. The scope was withdrawn under continuous suction. The patient tolerated the procedure well without any apparent complications. LV: The left ventricular size is normal. The left ventricular systolic function is moderately depressed. Estimated left ventricular ejection fraction is 40%. RV: The right ventricular size is mildly enlarged. Right ventricular systolic function is mildly depressed. LA: The left atrial size is mildly enlarged. Left atrial appendage shows Watchman device deployed slightly off axis, no paradevice leak, no surface thrombus. RA: Right atrial size is normal. IAS: The agitated saline injection showed no clear evidence of shunting into the left atrium, consistent with no patent foramen ovale. SHANIQUA: No evidence of pericardial effusion. AO: Normal aortic root. PA: Unable to reliably quantitate pulmonary systolic pressure. PVn: Pulmonary vein velocity is consistent with normal left atrial pressures. AV: The aortic valve is trileaflet with moderate sclerosis. Mild regurgitation. No evidence of aortic valve stenosis. MV: Mild mitral regurgitation. No evidence of mitral stenosis. Myxomatous degeneration of mitral valve. PV: The pulmonic valve is normal There is trace pulmonic regurgitation TV: Structurally normal tricuspid valve. Mild tricuspid regurgitation. No evidence of tricuspid valve stenosis. ++++++++++++++++++++++++++++++++++++ SOPHIE: ++++++++++++++++++++++++++++++++++++ Meds: Benzocaine spray was used with 1 sprays. Midazolam/Versed 4 mg IV, Fentanyl _ mcg IV, Fentanyl 50 mcg IV Comments: Probe 90 <Electronic Signature> 09/10/2024 06:23 PM Shun Howard M.D. Procedure Note Chas Howard MD - 09/10/2024 Transesophageal Echocardiography Report Pat.Name: ONEAL SCOTT Pat.ID: [id number] .Date: 09/10/2024 Refer.MD: HIRA ESQUEDA Exam Time: 3:06:00 PM Study Type:TRANSESOPHAGEAL ECHO (SOPHIE) Height: 67 in Age: 9 1940,84Y Sex: M BP: 135/76 HR: 78 bpm Sonogrphr: Filiberto Jones RDCS, RVT Pat. Stat.:Inpatient CPT - 4: 30734 15642 Reason for Study:Atrial fibrillation / flutter Procedures: 2D, 3 Dimensional imaging with full Doppler and color interigation, M-mode, Doppler, Color Flow, Transesophageal Race: W ++++++++++++++++++++++++++++++++++++ SUMMARY: ++++++++++++++++++++++++++++++++++++ The left ventricular systolic function is moderately depressed. Estimated left ventricular ejection fraction is 40%. The right ventricular size is mildly enlarged. Right ventricular systolic function is mildly depressed. The agitated saline injection showed no clear evidence of shunting into the left atrium, consistent with no patent foramen ovale. No evidence of pericardial effusion. The aortic valve is trileaflet with moderate sclerosis. Mild regurgitation. Mild mitral regurgitation. Mild tricuspid regurgitation. Left atrial appendage shows Watchman device deployed slightly off axis, no para-device leak, no surface thrombus. ++++++++++++++++++++++++++++++++++++ FINDINGS: ++++++++++++++++++++++++++++++++++++ SOPHIE: The patient was counseled and an informed consent was obtained. The posterior pharynx was anesthetized. The patient was placed in a left lateral recumbent position and a plastic bite was inserted into the mouth. IV sedation was administered. The transesophageal echo probe was inserted into the posterior pharynx and the esophagus was then intubated without difficulty. Multiple views were then obtained from the upper, mid, and lower esophagus and the gastric fundus. The scope was rotated 180 degrees and the aorta was visualized. The scope was withdrawn under continuous suction. The patient tolerated the procedure well without any apparent complications. LV: The left ventricular size is normal. The left ventricular systolic function is moderately depressed. Estimated left ventricular ejection fraction is 40%. RV: The right ventricular size is mildly enlarged. Right ventricular systolic function is mildly depressed. LA: The left atrial size is mildly enlarged. Left atrial appendage shows Watchman device deployed slightly off axis, no paradevice leak, no surface thrombus. RA: Right atrial size is normal. IAS: The agitated saline injection showed no clear evidence of shunting into the left atrium, consistent with no patent foramen ovale. SHANIQUA: No evidence of pericardial effusion. AO: Normal aortic root. PA: Unable to reliably quantitate pulmonary systolic pressure. PVn: Pulmonary vein velocity is consistent with normal left atrial pressures. AV: The aortic valve is trileaflet with moderate sclerosis. Mild regurgitation. No evidence of aortic valve stenosis. MV: Mild mitral regurgitation. No evidence of mitral stenosis. Myxomatous degeneration of mitral valve. PV: The pulmonic valve is normal There is trace pulmonic regurgitation TV: Structurally normal tricuspid valve. Mild tricuspid regurgitation. No evidence of tricuspid valve stenosis. ++++++++++++++++++++++++++++++++++++ SOPHIE: ++++++++++++++++++++++++++++++++++++ Meds: Benzocaine spray was used with 1 sprays. Midazolam/Versed 4 mg IV, Fentanyl _ mcg IV, Fentanyl 50 mcg IV Comments: Probe 90 <Electronic Signature> 09/10/2024 06:23 PM Shun Howard M.D. Hira Esqueda NP ECHO Final Result * CT HEAD WO CON (09/09/2024 4:31 PM GRAPHICS MANAGER) Anatomical Region Laterality Modality Head Computed Tomogra phy 09/10/2024 12:0 2 AM GRAPHICS MANAGER Impressions 09/10/2024 12:09 AM GRAPHICS MANAGER IMPRESSION: 1. No evidence is seen to suggest acute intracranial hemorrhage, mass effect, or midline shift. 2. 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 Referred By: MCKENNA PRICE Interpreted By: Obey Sims DO, 09/10/2024 12:02 AM Narrative 09/10/2024 12:09 AM GRAPHICS MANAGER [address] [address] EXAMINATION: CT HEAD WO CON EXAM DATE: 09/09/2024 4:29 PM CLINICAL HISTORY: Concern for cerebrovascular accident. COMPARISON: MRI brain 10/09/[address] 09/07/2024. TECHNIQUE: Axial unenhanced CT of the head was performed. Coronal and sagittal reformatted images were obtained and reviewed. A radiation dose lowering technique was used for this procedure, which may include, but is not limited to, dose reduction technique, automated exposure control, the use of iterative reconstruction, ALARA (As Low As Reasonably Achievable) techniques, and Image Gently techniques. FINDINGS: No evidence is seen to suggest discrete extra-axial fluid collection. Basal cisterns are grossly patent. No evidence is seen to suggest acute intracranial hemorrhage. There is no mass effect or midline shift. There is encephalomalacia in the left occipital lobe with associated ex vacuo dilatation of the occipital horn of the left lateral ventricle. There is moderate age-related cerebral volume loss with compensatory prominence of the ventricular system and sulci. The ventricles are otherwise appropriate in size and configuration. There are atherosclerotic calcifications of the intracranial vasculature. There are confluent foci of hypoattenuation in the supratentorial white matter that are nonspecific, but likely reflect changes of chronic ischemic microangiopathy. 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 No evidence is seen to suggest depressed calvarial fracture. There is minimal mucosal thickening in the right ethmoid air cells. The mastoid air cells are clear. There has been prior lens replacements. Procedure Note Obey Sims, - 09/10/[address] [address] EXAMINATION: CT HEAD WO CON EXAM DATE: 09/09/2024 4:29 PM CLINICAL HISTORY: Concern for cerebrovascular accident. COMPARISON: MRI brain 10/09/[address] 09/07/2024. TECHNIQUE: Axial unenhanced CT of the head was performed. Coronal andsagittal reformatted images were obtained and reviewed. A radiation doselowering technique was used for this procedure, which may include, but isnot limited to, dose reduction technique, automated exposure control, theuse of iterative reconstruction, ALARA (As Low As Reasonably Achievable)techniques, and Image Gently techniques. FINDINGS: No evidence is seen to suggest discrete extra-axial fluid collection.Basal cisterns are grossly patent. No evidence is seen to suggest acuteintracranial hemorrhage. There is no mass effect or midline shift. Thereis encephalomalacia in the left occipital lobe with associated ex vacuodilatation of the occipital horn of the left lateral ventricle. There ismoderate age-related cerebral volume loss with compensatory prominence ofthe ventricular system and sulci. The ventricles are otherwise appropriatein size and configuration. There are atherosclerotic calcifications ofthe intracranial vasculature. There are confluent foci of hypoattenuationin the supratentorial white matter that are nonspecific, but likelyreflect changes of chronic ischemic microangiopathy. Remote bilateralcerebellar hemisphere and basal ganglia infarcts are noted. No evidence isseen to suggest depressed calvarial fracture. There is minimal mucosalthickening in the right ethmoid air cells. The mastoid air cells areclear. There has been prior lens replacements. IMPRESSION: 1. No evidence is seen to suggest acute intracranial hemorrhage, masseffect, or midline shift. 2. Atherosclerotic calcifications of the intracranial vasculature,moderate age-related cerebral volume loss, and probable changes of chronicischemic microangiopathy. Referred By: MCKENNA PRICE Interpreted By: Obey Sims DO, 09/10/2024 12:02 AM Hira Esqueda NP CT Final Result * (ABNORMAL) COMPREHENSIVE METABOLIC PANEL (09/09/2024 1:58 AM GRAPHICS MANAGER) Only the most recent of2 resultswithin the time period is included. SODIUM S/P/B 139 136 - 145 MMOL/L 09/09/2024 3:47 AM [facility] POTASSIUM S/P/B 3.6 3.5 - 5.1 MMOL/L 09/09/2024 3:47 AM [facility] CHLORIDE S/P/B 107 97 - 115 MMOL/L 09/09/2024 3:47 AM [facility] CO2 26.2 21.0 - 32.0 MMOL/L 09/09/2024 3:47 AM [facility] GLUCOSE 89 74 - 106 MG/DL 09/09/2024 3:47 AM [facility] BUN 17 7 - 18 MG/DL 09/09/2024 3:47 AM [facility] CREATININE S/P/B 1.52(H) 0.70 - 1.30 MG/DL 09/09/2024 3:47 AM [facility] CALCIUM S/P/B 8.8 8.5 - 10.1 MG/DL 09/09/2024 3:47 AM [facility] BILIRUBIN TOTAL S/P/B 1.0 0.2 - 1.0 MG/DL 09/09/2024 3:47 AM [facility] ALKALINE PHOSPHATASE S/P/B 61 45 - 115 U/L 09/09/2024 3:47 AM [facility] AST 16 15 - 37 U/L 09/09/2024 3:47 AM [facility] ALT 15(L) 16 - 61 U/L 09/09/2024 3:47 AM [facility] TOTAL PROTEIN S/P/B 6.4 6.4 - 8.2 G/DL 09/09/2024 3:47 AM [facility] ALBUMIN S/P/B 3.2(L) 3.4 - 5.0 G/DL 09/09/2024 3:47 AM [facility] ANION GAP 5.8 2.0 - 10.0 MMOL/L 09/09/2024 3:47 AM [facility] OSMOLALITY (CALC) 289 MOSM/KG 025 3:47 AM [facility] Comment:REFERENCE RANGE NOT ESTABLISHED GFR ESTIMATE 45(L) >90 ML/MIN/1. 73 M2 09/09/2024 3:47 AM [facility] GFR NOTES GFR REFERENCE S: 09/09/2024 3:47 AM [facility] Comment: THE ESTIMATED GFR IS CALCULATED USING THE 2020 CKD-EPI EQUATION. THE FOLLOWING CATEGORIES FOR GRADING RENAL FUNCTION ARE RECOMMENDED BY THE INTERNATIONAL SOCIETY OF NEPHROLOGY (KDIGO 2012 CLINICAL PRACTICE GUIDELINE). G1,NORMAL OR HIGH: >89 ml/min/1.73 m2 G2,MILDLY DECREASED: 60-89 ml/min/1.73 m2 G3A,MILDLY TO MODERATELY DECREASED: 45-59 ml/min/1.73 m2 G3B,MODERATELY TO SEVERELY DECREASED: 30-44 ml/min/1.73 m2 G4,SEVERELY DECREASED: 15-29 ml/min/1.73 m2 G5,KIDNEY FAILURE: <15 ml/min/1.73 m2 09/09/2024 1:58 AM GRAPHICS MANAGER us Rayo Huertas MD LABORATORY Final Result [facility] [address] [place] [address], [phone] * (ABNORMAL) CBC W/DIFF AUTOMATED (09/09/2024 1:58 AM GRAPHICS MANAGER) Only the most recent of2 resultswithin the time period is included. WBC 5.56 4.00 - 10.80 x10'3/uL 09/09/2024 2:26 AM GRAPHICS MANAGER [facility] RBC 3.38(L) 4.50 - 6.10 x10'6/uL 09/09/2024 2:26 AM [facility] HGB 11.5(L) 12.0 - 16.0 G/DL 09/09/2024 2:26 AM [facility] HCT 32.8(L) 37.0 - 52.0 % 09/09/2024 2:26 AM GRAPHICS MANAGER [facility] MCV 97.0 78.0 - 100.0 FL 09/09/2024 2:26 AM [facility] MCH 34.0(H) 27.0 - 31.0 PG 09/09/2024 2:26 AM [facility] MCHC 35.1 33.0 - 36.0 G/DL 09/09/2024 2:26 AM [facility] RDW 12.3 11.5 - 14.5 % 09/09/2024 2:26 AM [facility] PLT 153 150 - 350 x10'3/uL 09/09/2024 2:26 AM [facility] MPV 9.0 7.4 - 10.4 FL 09/09/2024 2:26 AM [facility] DIFFERENTIAL TYPE AUTOMATED DIFFERENTIAL 09/09/2024 2:26 AM [facility] SEG NEUTROPHILS 44.7 % 2:26 AM [facility] LYMPHOCYTES 37.4 % 09/09/2024 2:26 AM [facility] MONOCYTES 13.1 % 09/09/2024 2:26 AM [facility] EOSINOPHILS 3.4 % 09/09/2024 2:26 AM [facility] BASOPHILS 0.7 % 09/09/2024 2:26 AM [facility] IMMATURE GRANS % 0.7 % 09/09/19 2:26 AM [facility] ABS. NEUTROPHILS 2.48 1.60 - 8.30 x10'3/uL 09/09/2024 2:26 AM [facility] ABS. LYMPHOCYTES 2.08 0.80 - 4.70 x10'3/uL 09/09/2024 2:26 AM [facility] ABS. MONOCYTES 0.73 0.00 - 1.50 x10'3/uL 09/09/2024 2:26 AM [facility] ABS. EOSINOPHILS 0.19 0.00 - 0.40 x10'3/uL 09/09/2024 2:26 AM [facility] ABS. BASOPHILS 0.04 0.00 - 0.20 x10'3/uL 09/09/2024 2:26 AM [facility] ABS. IMMATURE GRANULOCYTES 0.04(H) 0.00 - 0.03 x10'3/uL 09/09/2024 2:26 AM [facility] ABS. NUCLEATED RBC'S 0.00 0.00 - 0.01 x10'3/uL 09/09/2024 2:26 AM GRAPHICS MANAGER [facility] NRBC % 0.0 % 09/09/2024 2:26 AM GRAPHICS MANAGER [facility] 09/09/2024 1:58 AM GRAPHICS MANAGER us Rayo Huertas MD LABORATORY Final Result Performing Organization Address City/[facility] Co de Phone Number [facility] [address] [place] [address], [place] [phone] * MAGNESIUM (09/09/2024 1:58 AM GRAPHICS MANAGER) Only the most recent of2 resultswithin the time period is included. MAGNESIUM 1.9 1.6 - 2.6 MG/DL 09/09/2024 3:47 AM GRAPHICS MANAGER [facility] 09/09/2024 1:58 AM GRAPHICS MANAGER us Rayo Huertas MD LABORATORY Final Result Performing Organization Address [facility] de Phone Number [facility] [address] [place] [address], [place] [phone] * TROPONIN, QUANT (09/08/2024 3:27 PM GRAPHICS MANAGER) Only the most recent of3 resultswithin the time period is included. TROPONIN I HIGH SENSITIVITY 34 0 - 78 ng/L 09/08/2024 4:00 PM GRAPHICS MANAGER [facility] 09/08/2024 3:27 PM GRAPHICS MANAGER us Rayo Huertas MD LABORATORY Final Result Performing Organization Address [facility] Co de Phone Number [facility] [address] [place] [address], [place] [phone] * USV CAROTID DUPLEX MYRIAM (09/08/2024 2:31 PM GRAPHICS MANAGER) Anatomical Region Laterality Modality Neck Ultrasound 09/08/2024 2:07 PM GRAPHICS MANAGER Narrative 09/08/2024 3:03 PM GRAPHICS MANAGER [facility]JS Vascular Report Pat.Name: ONEAL SCOTT Pat.ID: [id number] St.Date: 09/08/2024 Refer.MD: HIRA ESQUEDA Exam Time: 2:07:00 PM Study Type:PVI CAROTID SCAN - BILATERAL Height: 67 in Age: 9 1940,84Y Sex: M Sonogrphr: Aj Cloud RVT Pat. Stat.:Inpatient Room: [facility] ICD - 9: R29.898 CVA CPT - 4: 91511 Carotid Duplex Race: W ++++++++++++++++++++++++++++++++++++ FINDINGS: ++++++++++++++++++++++++++++++++++++ Rt Innom: The innominate artery is unable to be obtained. Rt Subcl: The proximal subclavian artery is patent. Rt ICA: 0-39% stenosis with plaque noted in the internal carotid artery. Moderate heterogeneous plaque noted. Tortuous ICA noted. Rt ECA: Patent with antegrade flow noted in the external carotid artery. Rt Vert: Normal antegrade vertebral flow. Lt Subcl: The proximal subclavian artery is patent. Lt ICA: 0-39% stenosis with plaque noted in the internal carotid artery. Mild/moderate heterogeneous plaque noted. Lt ECA: Patent with antegrade flow noted in the external carotid artery. Lt Vert: Normal antegrade vertebral flow. Carotid Findings: Right Left Verteb.Flw Antegrade Antegrade ++++++++++++++++++++++++++++++++++++ MEASUREMENTS: ++++++++++++++++++++++++++++++++++++ DOPPLER Right CCA Prox Prox CCA PSV 82 cm/s Prox CCA EDV 18 cm/s Right CCA Dist Dist CCA PSV 54.3 cm/s Dist CCA EDV 11.5 cm/s Right ICA Prox Prox ICA PSV 76.8 cm/s Prox ICA EDV 20.9 cm/s Right ICA Mid Mid ICA PSV 87 cm/s Mid ICA EDV 22.7 cm/s Right ICA Dist Dist ICA PSV 77.4 cm/s Dist ICA EDV 19.5 cm/s Right ECA Prox Prox ECA PSV 57.1 cm/s Right Vertebral Vertebral PSV 29.8 cm/s Vertebral EDV 6.66 cm/s Right Prox SCA Prox SCA PSV 101 cm/s Prox SCA PSV 101 cm/s Right ICA/CCA RATIO ICA/CCA RATIO P 1.6 Left CCA Prox Prox CCA PSV 98.8 cm/s Prox CCA EDV 14.7 cm/s Left CCA Dist Dist CCA PSV 58 cm/s Dist CCA EDV 8.34 cm/s Left ICA Prox Prox ICA PSV 52.1 cm/s Prox ICA EDV 13.8 cm/s Left ICA Mid Mid ICA PSV 58.5 cm/s Mid ICA EDV 19.7 cm/s Left ICA Dist Dist ICA PSV 62.4 cm/s Dist ICA EDV 17.2 cm/s Left ECA Prox Prox ECA PSV 133 cm/s Left Vertebral Vertebral PSV 49.4 cm/s Vertebral EDV 14.9 cm/s Left Prox SCA Prox SCA PSV 150 cm/s Prox SCA PSV 150 cm/s Left ICA/CCA RATIO ICA/CCA RATIO P 1.08 <Electronic Signature> 09/08/2024 03:03 PM Donya Babin M.D. Procedure Note Donya Babin MD - 09/08/2024 SJS Vascular Report Pat.Name: ONEAL SCOTT Pat.ID: [id number] .Date: 09/08/2024 Refer.MD: HIRA ESQUEDA Exam Time: 2:07:00 PM Study Type:PVI CAROTID SCAN - BILATERAL Height: 67 in Age: 9 1940,84Y Sex: M Sonogrphr: Aj Cloud RVT Pat. Stat.:Inpatient Room: [facility] ICD - 9: R29.898 CVA CPT - 4: 23548 Carotid Duplex Race: W ++++++++++++++++++++++++++++++++++++ FINDINGS: ++++++++++++++++++++++++++++++++++++ Rt Innom: The innominate artery is unable to be obtained. Rt Subcl: The proximal subclavian artery is patent. Rt ICA: 0-39% stenosis with plaque noted in the internal carotid artery. Moderate heterogeneous plaque noted. Tortuous ICA noted. Rt ECA: Patent with antegrade flow noted in the external carotid artery. Rt Vert: Normal antegrade vertebral flow. Lt Subcl: The proximal subclavian artery is patent. Lt ICA: 0-39% stenosis with plaque noted in the internal carotid artery. Mild/moderate heterogeneous plaque noted. Lt ECA: Patent with antegrade flow noted in the external carotid artery. Lt Vert: Normal antegrade vertebral flow. Carotid Findings: Right Left Verteb.Flw Antegrade Antegrade ++++++++++++++++++++++++++++++++++++ MEASUREMENTS: ++++++++++++++++++++++++++++++++++++ DOPPLER Right CCA Prox Prox CCA PSV 82 cm/s Prox CCA EDV 18 cm/s Right CCA Dist Dist CCA PSV 54.3 cm/s Dist CCA EDV 11.5 cm/s Right ICA Prox Prox ICA PSV 76.8 cm/s Prox ICA EDV 20.9 cm/s Right ICA Mid Mid ICA PSV 87 cm/s Mid ICA EDV 22.7 cm/s Right ICA Dist Dist ICA PSV 77.4 cm/s Dist ICA EDV 19.5 cm/s Right ECA Prox Prox ECA PSV 57.1 cm/s Right Vertebral Vertebral PSV 29.8 cm/s Vertebral EDV 6.66 cm/s Right Prox SCA Prox SCA PSV 101 cm/s Prox SCA PSV 101 cm/s Right ICA/CCA RATIO ICA/CCA RATIO P 1.6 Left CCA Prox Prox CCA PSV 98.8 cm/s Prox CCA EDV 14.7 cm/s Left CCA Dist Dist CCA PSV 58 cm/s Dist CCA EDV 8.34 cm/s Left ICA Prox Prox ICA PSV 52.1 cm/s Prox ICA EDV 13.8 cm/s Left ICA Mid Mid ICA PSV 58.5 cm/s Mid ICA EDV 19.7 cm/s Left ICA Dist Dist ICA PSV 62.4 cm/s Dist ICA EDV 17.2 cm/s Left ECA Prox Prox ECA PSV 133 cm/s Left Vertebral Vertebral PSV 49.4 cm/s Vertebral EDV 14.9 cm/s Left Prox SCA Prox SCA PSV 150 cm/s Prox SCA PSV 150 cm/s Left ICA/CCA RATIO ICA/CCA RATIO P 1.08 <Electronic Signature> 09/08/2024 03:03 PM Donya Babin M.D. us Hira Esqueda DRAFTING TEACHER VAS Final Result * LIPID PANEL (09/08/2024 9:15 AM GRAPHICS MANAGER) [facility] CHOLESTEROL 120 MG/DL 09/08/2024 9:54 AM [facility] Comment:DESIRABLE: <200 TRIGLYCERIDES 67 MG/DL 09/08/2024 9:54 AM [facility] Comment:<150 NORMAL HDL 59 >39 MG/DL 09/08/2024 9:54 AM [facility] LDL (CALCULATED) 48 MG/DL 09/08/19 9:54 AM [facility] Comment:<100 OPTIMAL VLDL CALCULATION 13 MG/DL 09/08/19 9:54 AM [facility] Comment:REFERENCE RANGE NOT ESTABLISHED CHOL/HDL RATIO 2.0 09/08/2024 9:54 AM [facility] Comment:REFERENCE RANGE NOT ESTABLISHED LDL/HDL 0.8 09/08/2024 9:54 AM [facility] Comment:REFERENCE RANGE NOT ESTABLISHED NON HDL CHOLESTEROL 61 MG/DL 09/08/2024 9:54 AM [facility] Comment:REFERENCE RANGE NOT ESTABLISHED 09/08/2024 9:15 AM GRAPHICS MANAGER Rayo Huertas MD LABORATORY Final Result [facility] [address] [place] [address], [phone] * ECG 12 lead (09/08/2024 3:26 AM GRAPHICS MANAGER) 09/08/2024 3:26 AM GRAPHICS MANAGER Narrative [facility] - 09/08/2024 6:[address] [facility] [address] [place] [address] Test Date: 2024-09-08 Pat Name: [facility] Department: 1 Room: [facility] Gender: Male Chief Operating Engineer: Mm : 1940 Requested By: RAYO HUERTAS Order Number: [id number] Reading MD: Donya Babin Measurements Intervals [place] Rate: 60 P: 118 MS: 230 QRS: -47 QRSD: 129 T: 83 QT: 399 QTc: 399 Interpretive Statements ELECTRONIC ATRIAL PACEMAKER LEFT ANTERIOR FASCICULAR BLOCK [QRS AXIS <= -45, QR IN I, RS IN II] HICS MANAGER Procedure Note Donya Babin MD - 09/08/2024 [facility] [address] [place] [address] Test Date: 2024-09-08 Pat Name: [facility] Department: 1 Room: [facility] Gender: Male Chief Operating Engineer: Mm : 1940 Requested By: RAYO HUERTAS Order Number: [id number] Radha MD: Donya Babin Measurements Intervals [place] Rate: 60 P: 118 MS: 230 QRS: -47 QRSD: 129 T: 83 QT: 399 QTc: 399 Interpretive Statements ELECTRONIC ATRIAL PACEMAKER LEFT ANTERIOR FASCICULAR BLOCK [QRS AXIS <= -45, QR IN I, RS IN II] HICS MANAGER us Rayo Huertas MD ECG ORDERABLES Final Result Performing Organization Address City/[facility] Co de Phone Number [facility] * (ABNORMAL) HEPARIN, ANTI XA, UFH (09/08/2024 3:02 AM GRAPHICS MANAGER) HEPARIN ANTI XA UFH 0.04(L) 0.30 - 0.70 IU/ML 09/08/2024 3:20 AM GRAPHICS MANAGER [facility] Comment: UFH Therapeutic Anti Xa Ranges: Medical Therapeutic Range: 0.30 - 0.70 IU/mL Cardiac Therapeutic Range: 0.30 - 0.50 IU/mL Neuro Therapeutic Range: 0.20 - 0.40 IU/mL 09/08/2024 3:02 AM GRAPHICS MANAGER us Rayo Huertas MD LABORATORY Final Result Performing Organization Address [facility] de Phone Number [facility] [address] [place] [address], [phone] * (ABNORMAL) PRO-BRAIN NATRIURETIC PEPTIDE (PRO BNP) (09/08/2024 3:02 AM GRAPHICS MANAGER) PRO-B TYPE NATRIURETIC PEPTIDE 3,545(H) <450 PG/ML 09/08/2024 3:40 AM GRAPHICS MANAGER [facility] Comment: AGE INDEPENDENT: <300 PG/ML HAS A 99% NEGATIVE PREDICTIVE VALUE FOR EXCLUDING ACUTE CHF <50 YEARS: >450 PG/ML IS CONSISTENT WITH ACUTE CHF 50-75 YEARS: >900 PG/ML IS CONSISTENT WITH ACUTE CHF >75 YEARS: >1800 PG/ML IS CONSISTENT WITH ACUTE CHF IN PATIENTS WITH RENAL INSUFFICIENCY (GFR <60), >1200 PG/ML YIELDS A DIAGNOSTIC SENSITIVITY AND SPECIFICITY OF 89% AND 72% FOR ACUTE CHF. 09/08/2024 3:02 AM GRAPHICS MANAGER us Rayo Huertas MD LABORATORY Final Result Performing Organization Address City/[facility] Co de Phone Number [facility] [address] [place] [address], [phone] * HEMOGLOBIN, GLYCOSYLATED (09/08/2024 3:02 AM GRAPHICS MANAGER) HGB A1C 5.4 <5.7 % 09/08/2024 3:31 AM GRAPHICS MANAGER [facility] ESTIMATED AVG GLUCOSE 108 74 - 114 MG/DL 09/08/2024 3:31 AM GRAPHICS MANAGER [facility] 09/08/2024 3:02 AM GRAPHICS MANAGER us Rayo Huertas MD LABORATORY Final Result Performing Organization Address City/[facility]/ZIP Co de Phone Number [facility] [address] [place] [address], [phone] * PARTIAL THROMBOPLASTIN TIME,PTT (09/08/2024 3:02 AM GRAPHICS MANAGER) PTT 32.8 25.1 - 36.5 SEC 09/08/2024 3:23 AM GRAPHICS MANAGER [facility] 09/08/2024 3:02 AM GRAPHICS MANAGER us Rayo Huertas MD LABORATORY Final Result [facility] [address] [place] [address], [phone] * PROTIME/INR, VENOUS (09/08/2024 3:02 AM GRAPHICS MANAGER) PROTIME 12.3 9.4 - 12.5 SEC 09/08/2024 3:20 AM GRAPHICS MANAGER [facility] INR 1.1 0.8 - 1.1 09/08/2024 3:20 AM GRAPHICS MANAGER [facility] 09/08/2024 3:02 AM GRAPHICS MANAGER us Rayo Huertas MD LABORATORY Final Result [facility] [address] [place] [address], [phone] * CT GENERIC (09/07/2024) Anatomical Region Laterality Modality Other 09/07/2024 Doc [facility] Scanned SCANNING Final Resu lt * OUTSIDE PT/INR (SCAN ORDER) (09/07/2024) 09/07/2024 Doc [facility] Scanned SCANNING Final Resu lt * OUTSIDE LAB (SCAN ORDER) (09/07/2024) Only the most recent of3 resultswithin the time period is included. 09/07/2024 [facility] Scanned SCANNING Final Resu lt * IMAGE GENERIC (09/07/2024) Anatomical Region Laterality Modality Other 09/07/2024 Doc [facility] Scanned SCANNING Final Resu lt from Last 3 Months Insurance HUMANA HUMANA Advance Directives * Full Code (Latest Code Status on File) Date Activated Date Inactivated Comments 09/13/2024 11:23 AM * Full Code Date Activated Date Inactivated Comments 09/08/2024 2:50 AM 09/11/2024 3:55 PM * Full Code Date Activated Date Inactivated Comments 06/07/2023 12:03 PM 06/07/2023 5:46 PM * Full Code Date Activated Date Inactivated Comments 02/11/2020 11:00 AM 02/11/2020 5:06 PM Care Teams Skip Pit Worker Relationship Specialty [place] [address] [place] [address] PCP - General FAMILY PRACTICE 12/21/19 Laureano Simpson MD [facility]. [address] [address] Consulting Physician CARDIOVASCULAR DISEASE 12/17/19 Natanael Jensen MD [address] [place], [place] [address] Referring Physician NEPHROLOGY 06/06/23
--- OUTSIDE RECORDS SUMMARY | 2024-11-07 14:53 | XMS_ITS | Encounter Summary ---
Author Organization [facility] Address Formerly [facility] [place] [address] Care Team Providers Care Open Hearth Worker Name Role Phone Domingo Torres MD Unavailable Unavailabl Laureano Telles MD Unavailable [phone] Domingo Storey MD Primary Care Provider [phone] Melody Gibbs RN Unavailable [phone] Natanael Jensen MD Unavailable [phone] Taylor Stewart RN Unavailable [phone] Jenna Hess RN Unavailable [phone] Encounter Details Date Type Department Care Team (Late st Contact Info) Description 02/07/2020 Hospital Orders Only [facility] [place], [place] [address] Selvin Fuller MD Three [facility]. [facility] [address] [place], [place] [id number] Social History Tobacco Use Types Packs/Day Years [...] have Coronavirus / COVID-19? No / Unsure 02/01/2020 12:18 PM CDT documented as of this encounter H&P Notes * Gladys Gudino MD - 02/07/2020 1:35 PM CDT Attending Provider: No att. providers found PCP: DOMINGO STOREY MD Mal Scott is an 83-year-old male. Reason for Admission: * No active hospital problems. 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 He was previously being followed by Dr. Torres but wanted to switch care from [place], [place] to us out of ease of getting here. Of note, he was found to have an EF of 46% in 2017 followed by an EF of 28% listed on anecho in 2019. No previous coronary PCI or CABG. Has since underwent extensive cardiac work-up as below. To help with workup for cardiomyopathy/NSVT we did a LHC and EP study, as below. EP study led to ICD implantation by Dr. Taveras on 04/17/20. Recent Watchman implant due to labile INRS. Pending SOPHIE to reevaluate device. No new chest pain, pressure/discomfort, SOB/THAPA. Denies palpitations, dizziness/lightheadedness, syncope or near syncope.Tolerating meds well. Past Medical History: Diagnosis Date BPH (benign prostatic hyperplasia) s/p turp CHF (congestive heart failure) ([facility]) ([facility]) CKD (chronic kidney disease) stage 3, GFR 30-59 ml/min ([facility]) COPD (chronic obstructive pulmonary disease) ([facility]) ([facility]) COVID-19 03/2021 GERD (gastroesophageal reflux disease) HTN (hypertension) Hyperlipidemia SSS (sick sinus syndrome) ([facility]) ([facility]) Stroke ([facility]) ([facility]) x2 Allergies: Allergies Allergen Reactions Penicillins Anaphylaxis Social History Tobacco Use Smoking status: Former Packs/day: 0.50 Years: 55.00 Additional pack years: 0.00 Total pack years: 27.50 Types: Cigarettes Quit date: 2012 Years since quittin.0 Smokeless tobacco: Never Tobacco comments: quit tobacco 2012 Substance Use Topics Alcohol use: Yes Comment: 4-5 cans of beer per month Past Surgical History: Procedure Laterality Date COLONOSCOPY 2016 Dr Gilmore (not sure on date) EGD INGUINAL HERNIA REPAIR Left 12/30/2022 LESION REMOVAL from top of head PROSTATE SURGERY 2022 TERP VASECTOMY XA ICD 04/27/2020 [facility] Family History Problem Relation Name Age of Onset Cancer Mother Travel Exposure: Current Outpatient Medications on File Prior to Visit Medication Sig vitamin D3, cholecalciferol, 5000 UNITS capsule Take 1 capsule (125 mcg total) by mouth daily. No current facility-administered medications on file prior to visit. There were no vitals taken for this visit. Review of Systems Constitutional: Negative for chills, fever and weight loss. All other systems reviewed and are negative. Physical Exam Constitutional: General: He is not in acute distress. Appearance: Normal appearance. He is well-developed. HENT: Nose: No mucosal edema. Mouth/Throat: Pharynx: No oropharyngeal exudate. Neck: Vascular: No JVD. Cardiovascular: Rate and Rhythm: Normal rate and regular rhythm. Chest Wall: PMI is not displaced. Heart sounds: S1 normal and S2 normal. No murmur heard. No gallop. Pulmonary: Effort: Pulmonary effort is normal. No respiratory distress. Breath sounds: Normal breath sounds. Abdominal: General: There is no abdominal bruit. Palpations: There is no mass. Tenderness: There is no abdominal tenderness. Musculoskeletal: General: No deformity. Normal range of motion. Cervical back: Neck supple. Skin: General: Skin is warm and dry. Neurological: Mental Status: He is alert and oriented to person, place, and time. Psychiatric: Behavior: Behavior normal. Thought Content: Thought content normal. GLADYS GUDINO MD 08/24/2023 DRIVING NOZZLEMAN * Gladys Gudino MD - 02/07/2020 1:35 PM CDT Attending Provider: No att. providers found PCP: DOMINGO STOREY MD Mal Scott is an 83-year-old male. Reason for Admission: * No active hospital problems. 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 He was previously being followed by Dr. Torres but wanted to switch care from [place], [place] to us out of ease of getting here. Of note, he was found to have an EF of 46% in 2017 followed by an EF of 28% listed on anecho in 2019. No previous coronary PCI or CABG. Has since underwent extensive cardiac work-up as below. To help with workup for cardiomyopathy/NSVT we did a LHC and EP study, as below. EP study led to ICD implantation by Dr. Taveras on 04/17/20. Recent Watchman implant due to labile INRS. Pending SOPHIE to reevaluate device. No new chest pain, pressure/discomfort, SOB/THAPA. Denies palpitations, dizziness/lightheadedness, syncope or near syncope.Tolerating meds well. Labs: Lab Results Component Value Date/Time CHOL 150 09/10/2021 10:13 AM HDL 64 09/10/2021 10:13 AM LDL 72 09/10/2021 10:13 AM TRI 68 09/10/2021 10:13 AM CR 1.70 (H) 06/06/2023 11:50 AM Data Reviewed: Carotids (2016) - Oral - < 50% disease b/l Carotids (2019) - < 50% stenosis b/l Echo (2016) - Oral - EF 46%, mild to moderate AI Echo (2018) - EF 28%, mild to moderate MR, mild AI Echo (2019) - EF of 40-45% with grade I diastolic dysfunction. Mild to moderate MR, mild AR/TR/pHTN. Mildly dilated aortic root. Nuc stress (2019) - no clear evidence of ischemia. EF 43% with abnormal WMA. Images show a small area of irreversibility present in the apical bruce. 30 day HM (2019) - multiple runs of NSVT/non-sustained atrial arrhythmias. Min HR 48, Max 126, avg 68 bpm. No clear Afib. LHC (2019) - mild CAD - 20% LAD lesion. CLYDE (2019) - exercise stress test bilateral is negative with no stenosis EPS (2019) - inducible VT. ICD placed. Echo (02/2021) - EF of 35-40%. Right ventricle is normal in size and function. Mild AI and pHTN CLYDE (02/2021) - Negative Device check (05/2023) - AP 39%, REPLANTING MACHINE CREWMAN < 1%, mod switching 1.7%, longest > 14 hours Watchman placement (05/2023) Past Medical History: Diagnosis Date BPH (benign prostatic hyperplasia) s/p turp CHF (congestive heart failure) ([facility]) ([facility]) CKD (chronic kidney disease) stage 3, GFR 30-59 ml/min ([facility]) COPD (chronic obstructive pulmonary disease) ([facility]) ([facility]) COVID-19 03/2021 GERD (gastroesophageal reflux disease) HTN (hypertension) Hyperlipidemia SSS (sick sinus syndrome) ([facility]) ([facility] Stroke ([facility]) ([facility]) x2 Allergies: Allergies Allergen Reactions Penicillins Anaphylaxis Social History Tobacco Use Smoking status: Former Packs/day: 0.50 Years: 55.00 Additional pack years: 0.00 Total pack years: 27.50 Types: Cigarettes Quit date: 2012 Years since quittin.0 Smokeless tobacco: Never Tobacco comments: quit tobacco 2012 Substance Use Topics Alcohol use: Yes Comment: 4-5 cans of beer per month Past Surgical History: Procedure Laterality Date COLONOSCOPY 2016 Dr Gilmore (not sure on date) EGD INGUINAL HERNIA REPAIR Left 12/30/2022 LESION REMOVAL from top of head PROSTATE SURGERY 2022 TERP VASECTOMY XA ICD 04/27/2020 [facility] Family History Problem Relation Name Age of Onset Cancer Mother Travel Exposure: Current Outpatient Medications on File Prior to Visit Medication Sig vitamin D3, cholecalciferol, 5000 UNITS capsule Take 1 capsule (125 mcg total) by mouth daily. No current facility-administered medications on file prior to visit. There were no vitals taken for this visit. Review of Systems Constitutional: Negative for chills, fever and weight loss. Cardiovascular: Negative for chest pain. Physical Exam Constitutional: General: He is not in acute distress. Appearance: Normal appearance. He is well-developed. HENT: Nose: No mucosal edema. Mouth/Throat: Pharynx: No oropharyngeal exudate. Neck: Vascular: No JVD. Cardiovascular: Rate and Rhythm: Normal rate and regular rhythm. Chest Wall: PMI is not displaced. Heart sounds: S1 normal and S2 normal. No murmur heard. No gallop. Pulmonary: Effort: Pulmonary effort is normal. No respiratory distress. Breath sounds: Normal breath sounds. Abdominal: General: There is no abdominal bruit. Palpations: There is no mass. Tenderness: There is no abdominal tenderness. Musculoskeletal: General: No deformity. Normal range of motion. Cervical back: Neck supple. Skin: General: Skin is warm and dry. Neurological: Mental Status: He is alert and oriented to person, place, and time. Psychiatric: Behavior: Behavior normal. Thought Content: Thought content normal. GLADYS GUDINO MD 09/07/2023 DRIVING NOZZLEMAN documented in this encounter Plan of Treatment Upcoming Encounters Date Type Department Care Team (Late st Contact Info) Description 01/21/2025 8:35 AM CDT Allied Health/Nurse Visit [facility] THREE [facility], [facility] [address] [place] [address] [facility]. [facility] [address] [place] [address] 04/19/2025 10:40 AM CDT Office [facility] - [facility] [address] [facility], [address] [place] [address] Blanca Meeks MD [address] [place] [address] 04/22/2025 10:00 AM CDT Office Visit [facility] Family & Internal Medicine - [place] [address] [place] [address] [place] [address] [place] [address] 05/13/2025 1:00 PM CDT Office Visit [facility] [address] [place] [phone] Laureano Simpson MD [facility]. [place] [address] [place] [address] 06/24/2025 10:45 AM PILE DRIVING NOZZLEMAN Office Visit [facility], [facility] [address] [place], [place] [address] Gosia Portillo PA-C Three [facility] [address] [place], [place] [address] Karena Taveras MD [facility]. [facility] [address] [place], [place] [address] documented as of this encounter Visit Diagnoses Not on filedocumented in this encounter Additional Health Concerns Infection Onset Date Last Indicated Resolved Time COVID-19 Rule Out 04/14/2020 04/14/2020 04/16/2020 4:01 AM CDT COVID-19 Rule Out 09/16/2022 09/16/2022 09/16/2022 2:28 PM PILE DRIVING NOZZLEMAN COVID-19 Rule Out 02/07/2024 02/07/2024 02/07/2024 11:40 AM CDT COVID-19 Rule Out 02/07/2024 02/07/2024 02/07/2024 11:54 AM CDT COVID-19 Confirmed 02/07/2024 02/07/2024 12:33 AM CDT COVID-19 Rule Out 04/12/2024 04/12/2024 04/12/2024 2:29 PM CDT COVID-19 Rule Out 08/07/2024 08/07/2024 08/09/2024 11:38 AM PILE DRIVING NOZZLEMAN documented as of this encounter Care Teams Open Hearth Worker Relationship Specialty [place] [address] [place] [address] PCP - General FAMILY PRACTICE 12/21/19 Domingo Torres MD [place] [employer] CARDIOVASCULAR DISEASE 05/14/19 06/05/23 Laureano Simpson MD Three [address] [address] Consulting Physician CARDIOVASCULAR DISEASE 12/17/19 Melody Gibbs RN [address] [place] [address] Clinical Documentation Manager (Ambulatory) REGISTERED NURSE 04/17/21 11/09/22 Natanael Jensen MD [address] [place] [address] Referring Physician NEPHROLOGY 06/06/23 Taylor Stewart RN [address] [place] [address] Clinical Documentation Manager (Ambulatory) REGISTERED NURSE 09/10/24 09/10/24 Jenna Hess RN [address] [place] [address] Clinical Documentation Manager (Ambulatory) REGISTERED NURSE 09/10/24 09/26/24 documented as of this encounter
--- OUTSIDE RECORDS SUMMARY | 2024-11-07 14:53 | XMS_ITS | Encounter Summary ---
Author Organization [facility] Address [address] [place] [address] Care Team Providers Care Embedded Software Development Engineer Name Role Phone Laureano Simpson MD Unavailable [phone] Moises Zimmerman MD Primary Care Provider [phone] Natanael Jensen MD Unavailable [phone] Taylor Stewart RN Unavailable [phone] Jenna Hess RN Unavailable [phone] Encounter Details Date Type Department Care Team (Late st Contact Info) Description 06/06/2023 Prep for Procedure [facility] [place] [address] Karena Taveras MD Three [facility]. [place] [address] [place], [place] [id number] Social History Tobacco Use Types Packs/Day Years Used Date Smoking Tobacco: Former Cigarettes 0.5 55 1 958 - 2012 Smokeless Tobacco: Never Comments:quit tobacco 2013 Alcohol [...] often do you attend chur ch or yarsani services? Never 05/14/2022 Do you belong to any clubs o r organizations such as yazidi groups, unions, fraternal or athletic groups, or [...] Recorded Patient Health Questionnaire-2 Score 0 09/30/2022 [facility] - Occupational Stress [...] place to sleep or slept in a fdc (including now)? No 05/14/2022 Sex and Gender Information Value Date Recorded Sex Assigned at Male 12/21/2019 11:05 AM CDT Legal Sex Male 9:59 PM CDT Gender Identity Male 12/21/2019 11:05 AM CDT Sexual Orientation Straight 12/21/2019 11 :05 AM CDT Occupation Industry Job Start Date Job End Date retired Not on file Not on file Not on file documented as of this encounter Plan of Treatment Upcoming Encounters Date Type Department Care Team (Late st Contact Info) Description 01/21/2025 8:35 AM CDT Allied Health/Nurse Visit [facility], [place] [address] [place] [address] Karena Taveras MD [facility]. [place] [address] [place] [address] 04/19/2025 10:40 AM CDT Office Visit [facility] Multispecialty Care - [facility] [address] [facility], [address] [place] [address] Blanca Meeks MD [address] [place] [address] 04/22/2025 10:00 AM CDT Office Visit [facility] Family & Internal Medicine - [place] [address] [place] [phone] [place] [address] [place], [place] [phone] 05/13/2025 1:00 PM CDT Office Visit [facility] [address] [place] [address] Laureano Simpson MD [facility]. [place] [address] [place] [address] 06/24/2025 10:45 AM CAPITAL PROJECT ENGINEER Office Visit [facility], [place] [address] [place], [place] [address] Gosia Portillo PA-C [facility] [address] [place], [place] [address] Karena Taveras MD [facility]. [place] [address] [place], [place] [address] documented as of this encounter Visit Diagnoses [...] Rule Out 08/07/2024 08/07/2024 08/09/2024 11:38 AM CAPITAL PROJECT ENGINEER Assessment Noted Time PHQ-9 Depression Total Score: 3 10/24/19 22 11:51 AM CAPITAL PROJECT ENGINEER documented as of this encounter Care Teams Embedded Software Development Engineer Relationship Specialty Start [place] [address] [place] [address] PCP - General FAMILY PRACTICE 12/21/19 Laureano Simpson MD [address] [address] Consulting Physician CARDIOVASCULAR DISEASE 12/17/19 Natanael Jensen MD [address] [facility] [address] [place] [address] Referring Physician NEPHROLOGY 06/06/23 Taylor Stewart RN [address] [place] [address] Instrument Sterilizer (Ambulatory) REGISTERED NURSE 09/10/24 09/10/24 Jenna Hess RN [address] [place] [address] Instrument Sterilizer (Ambulatory) REGISTERED NURSE 09/10/24 09/26/24 documented as of this encounter
[2024-11-07 14:55] LABS: Parathyroid Intact 38.3 pg/mL (14.5-75.2)
[2024-11-07 15:02] LABS: Creatinine Urine 142.5 mg/dL
[2024-11-07 15:06] LABS: Total Protein Urine Random < 5 mg/dL; Ur Ttl Prot Creatinine Ratio < 0.04 mg/mg (0-0.20)
== END 2024-11-07 13:47 | disposition home or self-care (01) ==
LOC: ANHLAB 13:48
PROVIDERS: PCP Family Medicine; Visit Provider Internal Medicine Nephrology
DX: N18.9 Chronic kidney disease, unspecified (principal); N18.32 Chronic kidney disease, stage 3b
CPT/HCPCS: 36415; 80069; 82570; 83970; 84156; 85027

== ENCOUNTER 2025-05-25 10:57 | Outpatient (CLI) | payer MEDICARE, SELFPAY ==
--- OUTSIDE RECORDS SUMMARY | 2025-05-25 11:02 | XMS_ITS | Clinical Summary ---
Author Organization [facility] Address [address] [place] [address] Phone Care Team Providers Care Treasury Accountant Name Role Phone Moises Zimmerman MD Primary Care Provider Allergies Active Allergy Reactions Criticality Noted Date Comments Penicillins Anaphylaxis High 10/07/2015 Medications aspirin (ASPIRIN ADULT LOW DOSE) 81 MG [...] hypertension 08/27/2015 Calculus of kidney 08/27/2015 Immunizations Immunization Administration Dates Next Due Influenza Split High [...] at Not on file Legal Sex Male 9:51 AM [facility] Gender Identity Not on file Sexual Orientation [...] 10:57 AM CDT Height 170.2 cm (5' 7) 04/01/2022 10:57 AM CDT Body Mass Index 24.75 04/01/2022 10:57 AM CDT Plan of Treatment Health Maintenance Due Date Last Done Comments Pneumococcal PPSV23/PCV13 65 + Years / Low and Medium Risk (2 of 3 - PCV) 10/26/2020 10/27/2019 COVID-19 Vaccine (3 - 2024-2 6 season) 2025 01/15/2021, 12/18/2020 Influenza Vaccine (#1) 2025 0, 06/13/2020, 06/13/2020, Additional history exists Insurance HUMANA Care Teams Treasury Accountant Relationship Specialty [place] [address] [place] [address] PCP - General Family Medicine 01/17/20
--- OUTSIDE RECORDS SUMMARY | 2025-05-25 11:02 | XMS_ITS | Clinical Summary ---
Author Organization [facility] Address [address], [facility] [address] [place] [address] Phone Care Team Providers Care Metalsmith Helper Name Role Phone Juan Manuel Pratt DO Unavailable [phone] Moises Zimmerman MD Primary Care Provider Allergies [...] Job Start Date Job End Date retired [employer] Not on file Not on file Not on file Last Filed Vital Signs Vital Sign Reading Time Taken Comments Blood Pressure 140/80 05/17/2017 3:49 PM CDT Pulse 62 05/17/2017 3:49 PM CDT Temperature 35.8 C (96.5 F) 05/17/2017 3:49 PM CDT Respiratory Rate 16 10/10/2015 10:20 AM IRRIGATOR Oxygen Saturation 93% 05/17/2017 3:49 PM CDT Inhaled Oxygen Concentration - - Weight 73.9 kg (163 lb) 05/17/2017 3:49 PM CDT Height 170.2 cm (5' 7) 05/17/2017 3:49 PM CDT Body Mass Index 25.53 05/17/2017 3:49 PM CDT Plan of Treatment Health Maintenance Due Date Last Done Comments Hepatitis C Virus (HCV) Screening 1940 TdaP Immunization 1940 Pneumococcal Immunization (5 0+ years) (1 of 1 - PCV) 1991 Zoster Immunization (1 of 2) 1991 Medicare Initial AWV [id number] 08/15/2014 Respiratory Syncytial Virus (RSV) Immunization (Adult) (1 - 1-dose 75+ series) 2016 Influenza Immunization (#1) 2025 SARS-COV-2 Immunization ( - season) 2025 Hepatitis B Immunization Aged Out No longer eligible based on patient's age to complete this topic Human Papillomavirus (HPV) Immunization Aged Out No longer eligible b ased on patient's age to complete this topic Meningococcal Immunization (ACWY) Aged Out No longer eligible based on patient's age to complete this topic Rotavirus Immunization Aged Out No lo nger eligible based on patient's age to complete this topic Insurance MEDICARE C HUMANA Care Teams Metalsmith Helper Relationship Specialty Start [place] [address] [place] [address] PCP - General Family Medicine 09/04/20 Juan Manuel Pratt DO Gastroenterology 08/22/17
[2025-05-25 11:20] LABS: Hematocrit 37.1 % (42.0-52.0); Hemoglobin 12.4 g/dL (14.0-18.0); Mean Corpuscular HGB Conc 33.4 g/dl (32-36); Mean Corpuscular Hemoglobin 33.4 pg (26-34); Mean Corpuscular Volume 100.0 fl (80-100); Platelet Count Result 144 k/mm3 (150-375); Red Blood Count 3.71 M/mm3 (4.6-6.20); White Blood Count 6.1 K/mm3 (4.5-10.0)
[2025-05-25 11:38] LABS: Albumin Level 4.0 g/dL (3.5-5.1); Anion Gap 6 mmol/L (4-12); Blood Urea Nitrogen 26 mg/dL (9-20); Calcium 9.3 mg/dL (8.4-10.2); Carbon Dioxide 30 mmol/L (22-30); Chloride 103 mmol/L (98-107); Estimated Glomerular Filt Rate 39; Glucose 95 mg/dL (65-110); Potassium 4.6 mmol/L (3.4-5.0); Sodium 139 mmol/L (137-145)
[2025-05-25 11:50] LABS: Parathyroid Intact 34.8 pg/mL (14.5-75.2)
[2025-05-25 11:59] LABS: Total Protein Urine Random < 5 mg/dL
[2025-05-25 12:00] LABS: Ur Ttl Prot Creatinine Ratio < 0.03 mg/mg (0-0.20)
== END 2025-05-25 10:58 | disposition home or self-care (01) ==
LOC: ANHLAB 11:00
PROVIDERS: PCP Family Medicine; Visit Provider Internal Medicine Nephrology
DX: N18.32 Chronic kidney disease, stage 3b (principal)
CPT/HCPCS: 36415; 80069; 82570; 83970; 84156; 85027